=== PATIENT | male | born 1955 | race Caucasian/White ===

== ENCOUNTER 2016-12-07 14:24 | Emergency (ER) | payer SELFPAY ==
[~2016-12-07] VITALS: Ht 172.7 cm; Wt 57.2 kg
[~2016-12-07 14:24] MED LIST: ALLO300T74 PO; FERR134T5 PO; FURO-33 PO; OMEP10CA PO; ONDA8TAB PO; PRED-221 PO; PROC10TA PO; ZOLP-113 PO; [UNRECOGNIZED DRUG - CODE] PO
--- OUTSIDE RECORDS SUMMARY | 2016-12-07 14:29 | XMS REPORT | Summary of Care ---
Author Author Sidney Valenzuela M.D. Organization Unknown Address [address], [place] [id number] Phone Unavailable Care Team Providers Care Phosphoric Acid Supervisor Name Role Phone Matthew Valenzuela M.D. Unavailable Unavailable Noah Perez M.D. 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 Abdominal tenderness, RUQ (right upper quadrant) (789.61, R10.811) Status: Active Abdominal tenderness, LUQ (left upper quadrant) (789.62, R10.812) Status: Active Rash (782.1, R21) Status: Active 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 Sidney Valenzuela M.D.* Started ActiveGabapentin 100 MG Oral Capsule take one capsule TID for 7 days, then two TID for 7 days, then 3 capsules TID * Refills: 0 Sidney Valenzuela M.D.* Started ActiveCyanocobalamin 1000 MCG/ML Injection Solution Inject IM 1ML MONTHLY * Quantity: 10 Refills: 1 Sidney Valenzuela M.D.* Started ActiveClobetasol Propionate 0.05 % External Cream APPLY SPARINGLY TO AFFECTED AREA(S) TWICE DAILY * Quantity: 60 Refills: 1 Deacon Perez M.D.* Started 16-Jan-2014 Active Allergies and Adverse Reactions Name Dates Details NSAIDs Status: Active Past Medical History Name Dates Details Depression (311, F32.9) Status: Active History of blood transfusion (V15.89, Z92.89) Status: Resolved History of migraine headaches (V12.49, Z86.69) Status: Resolved History of pneumonia (V12.61, Z87.01) Status: Resolved History of Stomach problems (536.9, K31.9) Status: Resolved Personal history of malignant lymphoma (V10.79, Z85.9) Status: Resolved Procedures Procedure Dates Details History of Appendectomy History of Small Bowel Resection History of Complete Colonoscopy Procedures not documented Immunization Name Dates Details Pneumo (Pneumovax) Administered on:30-Apr-2013 Family History Unknown Family Member* Name Dates Details Family history of malignant neoplasm of breast (V16.3, Z80.3) Comments: Family History Status: Active Grandfather* Name Dates Details Family history of cardiac disorder (V17.49, Z82.49) Status: Active Father* Name Dates Details Family history of cardiac disorder (V17.49, Z82.49) Status: Active Sister* Name Dates Details Family history of malignant neoplasm of breast (V16.3, Z80.3) Status: Active Brother* Name Dates Details Family history of cardiac disorder (V17.49, Z82.49) Status: Active Social History Name Dates Details Smoking Status* Former smoker Vital Signs Date Test Result Details No Known Vitals to report Results Date Description Value Details Results not documented Plan of Care Planned Observations* Name Dates Details Planned Goals not documented Goal Planned Encounters* Appointment; Provider: Sidney Valenzuela On 13-Aug-2014 12:45 Instructions * Instructions not documented Encounters Appointment; Sidney Valenzuela Encounter Diagnosis: Problem not documented On 12-Jul-2014 12:30 Appointment; Sidney Valenzuela Encounter Diagnosis: Problem not documented On 11-Jun-2014 12:15 Appointment; Sidney Valenzuela Encounter Diagnosis: Problem not documented On 11-May-2014 12:00 Appointment; Sidney Valenzuela Encounter Diagnosis: Problem not documented On 03-Apr-2014 12:00 Appointment; Sidney Valenzuela Encounter Diagnosis: Problem not documented On 12:00 Appointment; Sidney Valenzuela Encounter Diagnosis: Problem not documented On 08:30 Appointment; Sidney Valenzuela Encounter Diagnosis: Problem not documented On 12:30 Appointment; Summer Patten Encounter Diagnosis: Problem not documented On 08:00 Appointment; Kapil Uriarte Encounter Diagnosis: Problem not documented On 11:45 Appointment; Sidney Valenzuela Encounter Diagnosis: Problem not documented On 12:00 Appointment; Sidney Valenzuela Encounter Diagnosis: Problem not documented On 12:00 Appointment; Summer Patten Encounter Diagnosis: Problem not documented On 08:00 Appointment; Sdiney Valenzuela Encounter Diagnosis: Problem not documented On 12:30 Appointment; Sidney Valenzuela Encounter Diagnosis: Problem not documented On 12:45 Appointment; Pranav Velazquez Encounter Diagnosis: Problem not documented On 09:30 Appointment; Sidney Valenzuela Encounter Diagnosis: Problem not documented On 12:30 Appointment; Sidney Valenzuela Encounter Diagnosis: Problem not documented On 10:30 Appointment; Sidney Valenzuela Encounter Diagnosis: Problem not documented On 11:45 Appointment; Deacon Perez Encounter Diagnosis: Problem not documented On 23-Jan-2014 09:15 Appointment; Deacon Perez Encounter Diagnosis: Problem not documented On 16-Jan-2014 10:45 Appointment; Melvin Melendrez Encounter Diagnosis: Problem not documented On 16-Jan-2014 09:05 Appointment; Antione Tobin Encounter Diagnosis: Problem not documented On 30-Mar-2013 08:30
--- OUTSIDE RECORDS SUMMARY | 2016-12-07 14:29 | XMS REPORT | Referral Summary ---
Author Author [facility], [facility] Organization [facility] Address Unknown Phone Unavailable Care Team Providers Care Help Desk Manager Name Role Phone Matthew Jones Primary Care Physician [phone] Encounter Date(s): 09/30/15 - 09/30/15 [facility], [address] [place] [id number] Discharge Disposition: 01-Home or Self Care Attending Physician: Zach Jones MD Admitting Physician: Zach Jones MD Vital Signs Most recent to 1 oldest [Reference Range]: Blood Pressure 120/70 mmHg [90-140/60-90 mmHg] (09/30/15 3:42 PM) Problem List Condition Effective Dates Status Health Status Informant Chronic Active depression(Confirmed ) Chronic Active headache(Confirmed) Depression(Confirmed Active ) Lymphoma, mantle Active cell(Confirmed) Allergies, Adverse Reactions, Alerts No Known Allergies Medications escitalopram 20 mg oral tablet 20 mg 1 tabs, Oral, Daily, # 30 tabs, 3 Refill(s), Pharmacy: [facility] # [id number], 1 tabs Oral Daily Start Date: 06/13/15 Status: Ordered Results No data available for this section Immunizations No data available for this section Procedures No data available for this section Social History Social History Type Response Smoking Status Former smoker Assessment and Plan Extracted from: Title: Ambulatory Patient Education Author: Zach Jones MD Date: 09/30/15 Family Medicine Depression Depression refers to feeling sad, low, down in the dumps, blue, gloomy, or empty. In general, there are two kinds of depression: 1. Normal sadness or normal grief. This kind of depression is one that we all feel from time to time after upsetting life experiences, such as the loss of a job or the ending of a relationship. This kind of depression is considered normal, is short lived, and resolves within a few days to 2 weeks. Depression experienced after the loss of a loved one (bereavement) often lasts longer than 2 weeks but normally gets better with time. 2. Clinical depression. This kind of depression lasts longer than normal sadness or normal grief or interferes with your ability to function at home, at work, and in school. It also interferes with your personal relationships. It affects almost every aspect of your life. Clinical depression is an illness. Symptoms of depression can also be caused by conditions other than those mentioned above, such as: Physical illness. Some physical illnesses, including underactive thyroid gland (hypothyroidism), severe anemia, specific types of cancer, diabetes, uncontrolled seizures, heart and lung problems, strokes, and chronic pain are commonly associated with symptoms of depression. Side effects of some prescription medicine. In some people, certain types of medicine can cause symptoms of depression. Substance abuse. Abuse of alcohol and illicit drugs can cause symptoms of depression. SYMPTOMS Symptoms of normal sadness and normal grief include the following: Feeling sad or crying for short periods of time. Not caring about anything (apathy). Difficulty sleeping or sleeping too much. No longer able to enjoy the things you used to enjoy. Desire to be by oneself all the time (social isolation). Lack of energy or motivation. Difficulty concentrating or remembering. Change in appetite or weight. Restlessness or agitation. Symptoms of clinical depression include the same symptoms of normal sadness or normal grief and also the following symptoms: Feeling sad or crying all the time. Feelings of guilt or worthlessness. Feelings of hopelessness or helplessness. Thoughts of suicide or the desire to harm yourself (suicidal ideation). Loss of touch with reality (psychotic symptoms). Seeing or hearing things that are not real (hallucinations) or having false beliefs about your life or the people around you (delusions and paranoia). DIAGNOSIS The diagnosis of clinical depression is usually based on how bad the symptoms are and how long they have lasted. Your health care provider will also ask you questions about your medical history and substance use to find out if physical illness, use of prescription medicine, or substance abuse is causing your depression. Your health care provider may also order blood tests. TREATMENT Often, normal sadness and normal grief do not require treatment. However, sometimes antidepressant medicine is given for bereavement to ease the depressive symptoms until they resolve. The treatment for clinical depression depends on how bad the symptoms are but often includes antidepressant medicine, counseling with a mental health professional, or both. Your health care provider will help to determine what treatment is best for you. Depression caused by physical illness usually goes away with appropriate medical treatment of the illness. If prescription medicine is causing depression , talk with your health care provider about stopping the medicine, decreasing the dose, or changing to another medicine. Depression caused by the abuse of alcohol or illicit drugs goes away when you stop using these substances. Some adults need professional help in order to stop drinking or using drugs. SEEK IMMEDIATE MEDICAL CARE IF: You have thoughts about hurting yourself or others. You lose touch with reality (have psychotic symptoms). You are taking medicine for depression and have a serious side effect. FOR MORE INFORMATION National [place] on Mental Illness: www.ld.org National [place] of Mental Health: www.nimh.nih.gov Document Released: 08/13/2001 Document Revised: 12/31/2014 Document Reviewed: ExitCare Patient Information 2015 [facility]. This information is not intended to replace advice given to you by your health care provider. Make sure you discuss any questions you have with your health care provider. No follow up information was provided. Extracted from: Title: Office Visit Note Author: Zach Jones MD Date: 09/30/15 Assessment/Plan Chronic depression This issue was reviewed, appears stable, and current therapy continued except as mentioned. Appropriate lab was reviewed from the most recent appropriate entry and lab was ordered if needed in the cpoe/nursing orders, and follow up recommended generally in 90 days and no later then six months. Mood stable. The patient has family members present who are agreeable with today's plan and have no additional concerns or requests. Lymphoma, mantle cell Seeing Dr. Maurer. No referral needed at this time with Medicare. Addendum The patient has a personal history of distant/active cancer. Currently they are having no by c/os or concerns related to that history and either completed treatment in the distant [place], past or have active follow up already arranged. Seeing Dr. Maurer. Zach Castro MD on September 30, 2015 15:57:16 AD COMPOSITOR
--- OUTSIDE RECORDS SUMMARY | 2016-12-07 14:29 | XMS REPORT | Referral Summary ---
Author Author [facility], [facility] Organization [facility] Address Unknown Phone Unavailable Care Team Providers Care Yardage Control Operator Name Role Phone Matthew Jones Primary Care Physician [phone] Encounter Date(s): 05/28/15 - 05/28/15 [facility], [address] [place] [id number] Discharge Disposition: 01-Home or Self Care Attending Physician: Zach Jones MD Admitting Physician: Zach Jones MD Vital Signs Most recent to 1 oldest [Reference Range]: Blood Pressure 120/80 mmHg [90-140/60-90 mmHg] (05/28/15 8:31 AM) Problem List Condition Effective Dates Status Health Status Informant Chronic Active depression(Confirmed ) Chronic Active headache(Confirmed) Depression(Confirmed Active ) Lymphoma, mantle Active cell(Confirmed) Allergies, Adverse Reactions, Alerts No Known Allergies Medications escitalopram 20 mg oral tablet 20 mg 1 tabs, Oral, Daily, # 30 tabs, 3 Refill(s), Pharmacy: [facility] # [id number], 1 tabs Oral Daily Start Date: 06/13/15 Status: Ordered Results No data available for this section Immunizations No data available for this section Procedures No data available for this section Social History Social History Type Response Smoking Status Former smoker Assessment and Plan Extracted from: Title: Ambulatory Patient Education Author: Zach Jones MD Date: Family Medicine Depression Depression refers to feeling [...] serious side effect. FOR MORE INFORMATION National [place] on Mental Illness: www.ld.org [place] of Mental Health: www.nimh.nih.gov Document Released: 08/13/2001 Document Revised: 12/31/2014 Document Reviewed: ExitCare Patient Information 2015 [facility]. This information is not intended to replace advice given to you by your health care provider. Make sure you discuss any questions you have with your health care provider. No follow up information was provided. Extracted from: Title: Office Visit Note Author: Zach Jones MD Date: 05/28/15 Assessment/Plan Chronic headache This issue is stable and appropriate refills, lab, and f/u have been discussed. Depression This issue is stable and appropriate refills, lab, and f/u have been discussed. Stable oncurrent meds. Lymphoma, mantle cell This issue is stable and appropriate refills, lab, and f /u have been discussed. Referrals given.
--- OUTSIDE RECORDS SUMMARY | 2016-12-07 14:30 | XMS REPORT | Continuity of Care Document ---
Author Author [facility] Organization [facility] Address Unknown Phone Unavailable Allergies Active Description Code Type Severity Reaction Onset Reported/Identified Relationship to Patient Clinical Status Yes No Known Allergies NKMA N/A N/A Yes No Known Allergies Drug Allergy N/A N/A 04/13/2013 Yes No Known Drug Allergies Drug Allergy N/A N/A 04/13/2013 Yes No Known Food Allergies Food Allergy N/A N/A 04/13/2013 Medications Problems Date Dx Coded Attending Type Code Diagnosis Diagnosed By 04/12/2013 Libertad ROGERS, Michael Ayoub Final 200.40 LYMPHOMA XNODAL/NOS 04/12/2013 Michael Maurer MD, I Final V64.1 NO PX/CONTRAINDICATION 04/13/2013 Bryan ROGERS, Ernesto Final 200.40 LYMPHOMA XNODAL/NOS 04/13/2013 Bryan ROGERS, Ernesto Final 276.1 HYPOSMOLALITY 04/13/2013 Bryan ROGERS, Ernesto Final 276.8 HYPOPOTASSEMIA 04/13/2013 Bryan ROGERS, Ernesto Final 284.19 PANCYTOPENIA NEC 04/13/2013 Bryan ROGERS, Ernesto Final 287.31 IMMUN THROMBOCYT PURPURA 04/13/2013 Bryan ROGERS, Ernesto Final 401.9 HYPERTENSION NOS 04/13/2013 Bryan ROGERS, Ernesto Final 511.9 PLEURAL EFFUSION NOS 04/13/2013 Bryan ROGERS, Ernesto Final 518.0 PULMONARY COLLAPSE 04/13/2013 Bryan ROGERS, Ernesto Final 518.81 AC RESPIRATORY FAILURE 04/13/2013 Bryan ROGERS, Ernesto Final 573.9 LIVER DISORDER NOS 04/13/2013 Bryan ROGERS, Ernesto Final 578.9 GI HEMORRHAGE NOS 04/13/2013 Bryan ROGERS, Ernesto Final 786.6 CHEST SWELLING/MASS/LUMP 04/13/2013 Bryan ROGERS, Ernesto Admitting 787.01 NAUSEA W VOMITING 04/13/2013 Brayn ROGERS, [facility] Final 789.59 ASCITES NEC 04/13/2013 Bryan ROGERS, [facility] Final 790.4 ELEVAT TRANSAMINASE/LDH Procedures Code Description Performed By Performed On 41.31 BONE MARROW BIOPSY Brayan Aguilera DO 04/14/2013 50.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 Visit Date/Time Discharge Status Pt. Type Provider Facility Loc./Unit Complaint [id number] 04/13/2013 15:37:00 2012 12:58:00 DIS Inpatient Bryan ROGERS, [facility] on [address] F7N [id number] 04/12/2013 05:40:00 2012 09:25:00 DIS Outpatient Libertad ROGERS, [facility] on [place] [id number]
--- OUTSIDE RECORDS SUMMARY | 2016-12-07 14:30 | XMS REPORT | Referral Summary ---
Author Author [facility], [facility] Organization [facility] Address Unknown Phone Unavailable Care Team Providers Care Machine Tender Name Role Phone Matthew Jones Primary Care Physician [phone] Encounter Date(s): 05/28/15 - 05/28/15 [facility], [address] [place] [address]- Discharge Disposition: 01-Home or Self Care Attending Physician: Zach Jones MD Admitting Physician: Zach Jones MD Vital Signs Most recent to 1 oldest [Reference Range]: Blood Pressure 120/80 mmHg [90-140/60-90 mmHg] (05/28/15 8:31 AM) Problem List Condition Effective Dates Status Health Status Informant Chronic Active headache(Confirmed) Depression(Confirmed Active ) Lymphoma, mantle Active cell(Confirmed) Allergies, Adverse Reactions, Alerts No Known Allergies Medications escitalopram 20 mg oral tablet 60 mg 3 tabs, Oral, Daily, # 270 tabs, 0 Refill(s), Pharmacy: [facility] # [id number], 3 tabs Oral Daily,x90 days Start Date: 05/28/15 Stop Date: 08/26/15 Status: Ordered Results No data available for [...] serious side effect. FOR MORE INFORMATION National [place] on Mental Illness: www.ld.org National [place] of Mental Health: www.nimh.nih.gov Document Released: 08/13/2001 Document Revised: 12/31/2014 Document Reviewed: ExitCare Patient Information 2015 [employer] [facility]. This information is not intended to replace [...]
--- OUTSIDE RECORDS SUMMARY | 2016-12-07 14:30 | XMS REPORT ---
Author Author [facility], [facility] - Organization Unknown Address Unknown Phone Unavailable Allergies, Adverse Reactions, Alerts * Latex Allergy has not been assessed. * IV Contrast Allergy has not been assessed. * No Known Drug Allergies. * No Known Food Allergies. * No Known Allergies. Problems * Abdominal Pain* Status:Active. * Biopsy of Liver* Status:Active. * Mantle Cell Lymphoma* Status:Active. Procedures No relevant procedures performed. Medication Medication reconciliation has not been performed. Results LAB--COAG STUDIES from 04/12/2013 6:15 AMINR 1.0 (0.9-1.2 ) PTT 21.2 sec L (25.0-35.0 sec) LAB--HEMATOLOGY from 04/12/2013 7:24 AMAbsolute Basophils 0.12 THOUS (0.00-0.20 THOUS) Absolute Eosinophils 0.26 THOUS (0.00-0.50 THOUS) Absolute Lymphocytes 0.66 THOUS L (0.80-3.30 THOUS) Absolute Monocytes 1.24 THOUS H (0.30-1.00 THOUS) Absolute Neutrophils 9.42 THOUS H (1.90-7.00 THOUS) HCT 34.6 % L (42.0-52.0 %) HGB 11.6 g/dl L (14.0-18.0 g/dl) MCH 29.7 pg (27.0-32.0 pg) MCHC 33.5 g/dL (32.0-36.0 g/dL) MCV 88.7 fL (82.0-99.0 fL) Platelet Count 8 K/uL LL (150-400 K/uL) RBC 3.90 M/uL L (4.60-6.20 M/uL) RDW 14.6 % H (11.5-14.5 %) WBC 11.8 K/uL H (4.8-10.8 K/uL) Basophils 1 % (0-2 %) Eosinophils 2 % (0-4 %) Immature Granulocytes 1.1 % H (0.0-1.0 %) Lymphocytes 6 % L (20-46 %) Monocytes 11 % (4-11 %) Nucleated RBC Automated 0.2 /100 WBC (0 /100 WBC) Differential Scanned Slide Neutrophils 80 % H (51-75 %)
--- OUTSIDE RECORDS SUMMARY | 2016-12-07 14:30 | XMS REPORT ---
Author Author [facility], Via [facility] - Organization Unknown Address Unknown Phone Unavailable Allergies, Adverse Reactions, Alerts * No Latex Allergy. * No IV Contrast Allergy. * No Known Drug Allergies. * No Known Food Allergies. * No Known Allergies. Problems * Abdominal Pain* Status:Resolved. * Biopsy of Liver* Status:Resolved. * Chemotherapy* Status:Active. * Fall Risk* Status:Active. * Fluid Volume Disorder* Status:Resolved. * Gas Exchange Impairment* Status:Resolved. * Mantle Cell Lymphoma* Status:Active. * Nutrition Impairment* Status:Active. * Thrombocytopenic Disorder* Status:Active. Procedures No relevant procedures performed. Medication It is the responsibility of the patient or patient patient relations representative to confirm the list of medications with either the patient's personal care provider or the patient's follow-up care provider to ensure the patient has an appropriate list of medications to take at home. Discharge medications* zolpidem 5 mg Tablet, Ordered By: Chrissy Andrewitar Directions: 1 tablet oral QHS PRN MAY RPT _ SLEEP Additional Instructions: MAY REPEAT IN 1 HOUR IF PATIENT REMAINS AWAKE. * allopurinol 300 mg Tablet, Ordered By: Chrissy Andrewitar Directions: 1 tablet oral daily * ferrous sulfate 325 mg (65 mg iron) tablet,delayed release (DR/EC), Ordered By : Chrissy Andrewitar Directions: 1 tablet oral three times a day during meal * HYDROcodone-acetaminophen (Lortab) 5 mg-500 mg Tablet, Ordered By: Chrissy Andrewitar Directions: 1 tablet oral every four hours PRN pain * ondansetron HCl (Zofran) 8 mg Tablet, Ordered By: Chrissy Andrewitar Directions: 1 tablet oral every eight hours PRN nausea or vomiting * omeprazole 20 mg capsule,delayed release(DR/EC), Ordered By: Chrissy Henao Directions: 1 capsule oral twice a day before meals Additional Instructions: FORMULARY SUB FOR PROTONIX 40 MG/BID IV * predniSONE 20 mg Tablet, Ordered By: Chrissy Henao Directions: 3 tablet oral Daily at 8 AM _ THROMBOCYTOPENIA * Diet: Regular diet * Activity : as tolerated * Follow up with Dr. Maurer in [place] office as scheduled * Blood work at Dr. Maurer office - this Wednesday, next Wednesday and Thr Stopped medications* ranitidine HCl (ZANtac) 150 mg Tablet Directions: 1 tablet oral three times a day with or after meal * ibuprofen 200 mg Tablet Directions: 2-4 tablet oral every four hours PRN pain Results LAB--BLOOD BANK from 04/13/2013 5:56 PMPlatelet Pheresis LR Irradiated PP LR IR # 1 [id number] selected 04/13/13 17:56 PSAMM (Preliminary Result) LAB--BLOOD BANK from 04/13/2013 6:17 PMBlood Bank Specimen to Hold DONE Antibody Screen (Indirect [facility]) NEG ABO and Rh O NEG LAB--BLOOD BANK from 04/13/2013 7:43 PMPlatelet Pheresis LR Irradiated PP LR IR # 1 [id number] p.Transfus 04/13/13 19:43 LAB--BLOOD BANK from 04/13/2013 10:26 PMPlatelet Pheresis LR Irradiated PP LR IR #3 [id number] selected 04/13/13 22:26 PSAMM (Preliminary Result) LAB--BLOOD BANK from 04/13/2013 11:05 PMPlatelet Pheresis LR Irradiated PP LR IR #3 [id number] p.Transfus 04/13/13 23:05 LAB--BLOOD BANK from 04/14/2013 10:40 AMPlatelet Pheresis LR Irradiated PP LR IR #1 [id number] selected 04/14/13 10:40 CCHER (Preliminary Result) LAB--BLOOD BANK from 04/14/2013 2:22 PMPlatelet Pheresis LR Irradiated PP LR IR # 3 [id number] selected 04/14/13 14:22 RTHOM (Preliminary Result) LAB--BLOOD BANK from 04/14/2013 2:55 PMPlatelet Pheresis LR Irradiated PP LR IR # 3 [id number] p.Transfus 04/14/13 14:55 LAB--BLOOD BANK from 04/15/2013 8:47 AMPlatelet Pheresis LR Irradiated PP LR IR # 2 [id number] selected 04/15/13 08:47 PRASHANT (Preliminary Result) LAB--BLOOD BANK from 04/15/2013 9:25 AMPlatelet Pheresis LR Irradiated PP LR IR # 2 [id number] p.Transfus 04/15/13 09:25 LAB--BLOOD BANK from 04/18/2013 4:59 PMPlatelet Pheresis LR Irradiated PP LR IR # 2 [id number] selected 04/18/13 16:59 BBUCZ (Preliminary Result) LAB--BLOOD BANK from 04/18/2013 6:21 PMPlatelet Pheresis LR Irradiated PP LR IR # 2 [id number] p.Transfus 04/18/13 18:21 LAB--BLOOD BANK from 04/19/2013 1:39 AMPlatelet Pheresis LR Irradiated PP LR IR [id number] selected 04/19/13 01:39 CSAL (Preliminary Result) LAB--BLOOD BANK from 04/19/2013 6:37 AMPlatelet Pheresis LR Irradiated PP LR IR [id number] p.Transfus 04/19/13 06:37 LAB--BLOOD BANK from 04/20/2013 10:02 AMPlatelet Pheresis LR Irradiated PP LR IR #1 [id number] p.Transfus 04/20/13 10:02 LAB--BLOOD BANK from 04/21/2013 1:13 AMPlatelet Pheresis LR Irradiated PP LR IR [id number] selected 04/21/13 01:13 CARIDAD (Preliminary Result) LAB--BLOOD BANK from 04/21/2013 3:57 PMPlatelet Pheresis LR Irradiated PP LR IR [id number] p.Transfus 04/21/13 15:57 LAB--BLOOD BANK from 04/22/2013 9:38 AMPlatelet Pheresis LR Irradiated PP LR IR # 2 [id number] selected 04/22/13 09:38 SXCDREAD (Preliminary Result) LAB--BLOOD BANK from 04/22/2013 10:43 AMPlatelet Pheresis LR Irradiated PP LR IR #2 [id number] p.Transfus 04/22/13 10:43 LAB--BLOOD BANK from 04/23/2013 2:51 PMPlatelet Pheresis LR Irradiated PP LR IR # 1 [id number] selected 04/23/13 14:51 MFLET (Preliminary Result) LAB--BLOOD BANK from 04/23/2013 3:27 PMPlatelet Pheresis LR Irradiated PP LR IR # 2 [id number] selected 04/23/13 15:27 MFLET (Preliminary Result) LAB--BLOOD BANK from 04/23/2013 4:37 PMPlatelet Pheresis LR Irradiated PP LR IR # 2 [id number] p.Transfus 04/23/13 16:37 LAB--BLOOD BANK from 04/24/2013 6:06 AMAntibody Screen (Indirect [facility]) NEG ABO and Rh O NEG LAB--BLOOD BANK from 04/24/2013 8:30 AMRed Blood Cells LR Irradiated ( Preliminary Result)RCLRIR -1PA#2 [id number] selected 04/24/13 08:30 RTHOM RCLR IR -1 [id number] selected 04/24/13 08:30 RTHOM RCLR IR -1 [id number] selected 04/24/13 08:30 RTHOM LAB--BLOOD BANK from 04/24/2013 9:16 AMRed Blood Cells LR Irradiated RCLRIR - 1PA#2 [id number] p.Transfus 04/24/13 09:16 LAB--BLOOD BANK from 04/24/2013 11:42 AMPlatelet Pheresis LR Irradiated PP LR IR [id number] selected 04/24/13 11:42 PRASHANT (Preliminary Result) LAB--BLOOD BANK from 04/24/2013 12:10 PMPlatelet Pheresis LR Irradiated PP LR IR [id number] p.Transfus 04/24/13 12:10 LAB--BLOOD BANK from 04/24/2013 2:05 PMRed Blood Cells LR Irradiated RCLR IR - 1 [id number] p.Transfus 04/24/13 14:05 LAB--BLOOD BANK from 04/24/2013 4:35 PMRed Blood Cells LR Irradiated RCLR IR - 1 [id number] p.Transfus 04/24/13 16:35 LAB--BLOOD BANK from 04/25/2013 10:36 AMPlatelet Pheresis LR Irradiated PP LR IR #2 [id number] selected 04/25/13 10:36 SXCHA (Preliminary Result) LAB--BLOOD BANK from 04/25/2013 11:27 AMPlatelet Pheresis LR Irradiated PP LR IR #2 [id number] p.Transfus 04/25/13 11:27 LAB--BLOOD BANK from 04/26/2013 8:07 AMPlatelet Pheresis LR Irradiated PP LR IR [id number] selected 04/26/13 08:07 SXCHA (Preliminary Result) LAB--BLOOD BANK from 04/26/2013 8:46 AMPlatelet Pheresis LR Irradiated LAB--BLOOD BANK from 04/26/2013 8:48 AMPlatelet Pheresis LR Irradiated Platelet Pheresis LR Irradiated LAB--BLOOD BANK from 04/26/2013 9:34 AMPlatelet Pheresis LR Irradiated PP LR IR # 2 [id number] p.Transfus 04/26/13 09:34 LAB--BLOOD BANK from 04/27/2013 12:58 PMPlatelet Pheresis LR Irradiated PP LR IR [id number] p.Transfus 04/27/13 12:58 LAB--BLOOD BANK from 04/28/2013 7:24 AMAntibody Screen (Indirect [facility]) NEG ABO and Rh O NEG LAB--BLOOD BANK from 04/28/2013 7:50 AMPlatelet Pheresis LR Irradiated PP LR IR # 2 [id number] selected 04/28/13 07:50 RTHOM (Preliminary Result) LAB--BLOOD BANK from 04/28/2013 8:11 AMRed Blood Cells LR Irradiated ( Preliminary Result)RCLR IR -1 [id number] selected 04/28/13 08:11 RTHOM RCLR IR -1 [id number] selected 04/28/13 08:11 RTHOM LAB--BLOOD BANK from 04/28/2013 2:12 PMPlatelet Pheresis LR Irradiated PP LR IR # 2 [id number] p.Transfus 04/28/13 14:12 LAB--BLOOD BANK from 04/28/2013 4:39 PMRed Blood Cells LR Irradiated RCLR IR - 1 [id number] p.Transfus 04/28/13 16:39 LAB--BLOOD BANK from 04/28/2013 7:25 PMRed Blood Cells LR Irradiated RCLR IR - 1 [id number] p.Transfus 04/28/13 19:25 LAB--BLOOD BANK from 04/29/2013 6:37 AMPlatelet Pheresis LR Irradiated LAB--BLOOD BANK from 04/29/2013 7:15 AMPlatelet Pheresis LR Irradiated PP LR IR # 2 [id number] selected 04/29/13 07:15 PRASHANT (Preliminary Result) LAB--BLOOD BANK from 04/29/2013 9:16 AMPlatelet Pheresis LR Irradiated PP LR IR # 2 [id number] p.Transfus 04/29/13 09:16 LAB--BLOOD BANK from 04/29/2013 11:29 AMPlatelet Pheresis LR Irradiated LAB--BLOOD BANK from 04/30/2013 6:51 AMPlatelet Pheresis LR Irradiated PP LR IR [id number] selected 04/30/13 06:51 PRASHANT (Preliminary Result) LAB--BLOOD BANK from 04/30/2013 8:10 AMPlatelet Pheresis LR Irradiated PP LR IR [id number] p.Transfus 04/30/13 08:10 LAB--BLOOD BANK from 05/01/2013 7:05 AMPlatelet Pheresis LR Irradiated PP LR IR # 2 [id number] selected 05/01/13 07:05 SXCHA (Preliminary Result) LAB--BLOOD BANK from 05/01/2013 10:51 AMPlatelet Pheresis LR Irradiated PP LR IR # 2 [id number] p.Transfus 05/01/13 10:51 LAB--BLOOD BANK from 05/02/2013 6:58 AMPlatelet Pheresis LR Irradiated PP LR IR [id number] selected 05/02/13 06:58 CCHER (Preliminary Result) LAB--BLOOD BANK from 05/03/2013 12:11 PMPlatelet Pheresis LR Irradiated LAB--BLOOD BANK from 05/09/2013 9:38 AMPlatelet Pheresis LR Irradiated PP LR IR # 3 [id number] selected 05/09/13 09:38 SXCHA (Preliminary Result) LAB--BLOOD BANK from 05/09/2013 9:56 AMPlatelet Pheresis LR Irradiated PP LR IR # 3 [id number] p.Transfus 05/09/13 09:56 LAB--CHEMISTRY from 04/13/2013 6:16 PMBUN 25 mg/dL H (4-20 mg/dL) Bilirubin Total 1.3 mg/dL H (0.2-1.2 mg/dL) AST (SGOT) 169 U/L H (15-41 U/L) ALT (SGPT) 103 U/L H (17-63 U/L) Alkaline Phosphatase 747 U/L H (26-104 U/L) Albumin 2.4 g/dL L (3.5-4.8 g/dL) Anion Gap 12 (3-20 ) Calcium 8.5 mg/dL L (8.6-10.0 mg/dL) Chloride 94 mEq/L L (99-109 mEq/L) CO2 27 mEq/L (22-32 mEq/L) Creatinine 0.97 mg/dL (0.64-1.27 mg/dL) Ferritin 147 ng/mL (24-340 ng/mL) eGFR >60 (>60- ) Globulin 3.6 g/dL (1.9-4.3 g/dL) Glucose 95 mg/dL (70-100 mg/dL) Iron 30 ug/dL L (65-175 ug/dL) Potassium 4.0 mEq/L (3.6-5.1 mEq/L) LDH 1864 U/L H (98-192 U/L) Magnesium 2.2 mg/dL (1.8-2.5 mg/dL) Sodium 133 mEq/L L (136-144 mEq/L) Percent Saturation 10 % L (11-46 %) Iron Binding Capacity 294 ug/dL (268-490 ug/dL) Protein 6.0 g/dL L (6.1-7.9 g/dL) Transferrin 197 mg/dL (180-329 mg/dL) Vitamin B12 >1000 pg/mL H (211-911 pg/mL) Folate 5.2 ng/mL (2.0-20.0 ng/mL) LAB--CHEMISTRY from 04/14/2013 6:34 AMAnion Gap 10 (3-20 ) BUN 20 mg/dL (4-20 mg/dL) Calcium 8.1 mg/dL L (8.6-10.0 mg/dL) Chloride 102 mEq/L (99-109 mEq/L) CO2 24 mEq/L (22-32 mEq/L) Creatinine 0.91 mg/dL (0.64-1.27 mg/dL) eGFR >60 (>60- ) Glucose 74 mg/dL (70-100 mg/dL) Potassium 4.0 mEq/L (3.6-5.1 mEq/L) Magnesium 2.2 mg/dL (1.8-2.5 mg/dL) Sodium 136 mEq/L (136-144 mEq/L) Uric Acid 7.1 mg/dL (4.8-8.7 mg/dL) LAB--CHEMISTRY from 04/14/2013 4:08 PMAlpha Protein 0.6 IU/mL (0.0-5.0 IU/ mL) CEA 0.8 ng/mL (0.0-3.3 ng/mL) HCG Quant 1 mIU/mL (0-3 mIU/mL) LAB--CHEMISTRY from 04/15/2013 3:55 AMBUN 12 mg/dL (4-20 mg/dL) Bilirubin Total 1.0 mg/dL (0.2-1.2 mg/dL) AST (SGOT) 145 U/L H (15-41 U/L) ALT (SGPT) 76 U/L H (17-63 U/L) Alkaline Phosphatase 535 U/L H (26-104 U/L) Albumin 2.1 g/dL L (3.5-4.8 g/dL) Anion Gap 5 (3-20 ) Calcium 8.0 mg/dL L (8.6-10.0 mg/dL) Chloride 105 mEq/L (99-109 mEq/L) CO2 25 mEq/L (22-32 mEq/L) Creatinine 0.73 mg/dL (0.64-1.27 mg/dL) eGFR >60 (>60- ) Globulin 3.4 g/dL (1.9-4.3 g/dL) Glucose 115 mg/dL H (70-100 mg/dL) Potassium 4.3 mEq/L (3.6-5.1 mEq/L) Magnesium 2.2 mg/dL (1.8-2.5 mg/dL) Sodium 135 mEq/L L (136-144 mEq/L) Phosphorus 4.0 mg/dL (2.4-4.7 mg/dL) Protein 5.5 g/dL L (6.1-7.9 g/dL) Uric Acid 4.2 mg/dL L (4.8-8.7 mg/dL) LAB--CHEMISTRY from 04/16/2013 3:36 AMBUN 10 mg/dL (4-20 mg/dL) Bilirubin Total 1.1 mg/dL (0.2-1.2 mg/dL) AST (SGOT) 135 U/L H (15-41 U/L) ALT (SGPT) 75 U/L H (17-63 U/L) Alkaline Phosphatase 554 U/L H (26-104 U/L) Albumin 2.1 g/dL L (3.5-4.8 g/dL) Anion Gap 7 (3-20 ) Calcium 8.3 mg/dL L (8.6-10.0 mg/dL) Chloride 103 mEq/L (99-109 mEq/L) CO2 25 mEq/L (22-32 mEq/L) Creatinine 0.61 mg/dL L (0.64-1.27 mg/dL) eGFR >60 (>60- ) Globulin 3.7 g/dL (1.9-4.3 g/dL) Glucose 106 mg/dL H (70-100 mg/dL) Potassium 4.3 mEq/L (3.6-5.1 mEq/L) Magnesium 2.0 mg/dL (1.8-2.5 mg/dL) Sodium 135 mEq/L L (136-144 mEq/L) Phosphorus 2.5 mg/dL (2.4-4.7 mg/dL) Protein 5.8 g/dL L (6.1-7.9 g/dL) Uric Acid 3.0 mg/dL L (4.8-8.7 mg/dL) LAB--CHEMISTRY from 04/17/2013 6:26 AMBUN 10 mg/dL (4-20 mg/dL) Bilirubin Total 1.2 mg/dL (0.2-1.2 mg/dL) AST (SGOT) 113 U/L H (15-41 U/L) ALT (SGPT) 69 U/L H (17-63 U/L) Alkaline Phosphatase 531 U/L H (26-104 U/L) Albumin 2.1 g/dL L (3.5-4.8 g/dL) Anion Gap 9 (3-20 ) Calcium 8.2 mg/dL L (8.6-10.0 mg/dL) Chloride 99 mEq/L (99-109 mEq/L) CO2 26 mEq/L (22-32 mEq/L) Creatinine 0.67 mg/dL (0.64-1.27 mg/dL) eGFR >60 (>60- ) Globulin 4.2 g/dL (1.9-4.3 g/dL) Glucose 98 mg/dL (70-100 mg/dL) Potassium 3.6 mEq/L (3.6-5.1 mEq/L) Magnesium 2.0 mg/dL (1.8-2.5 mg/dL) Sodium 134 mEq/L L (136-144 mEq/L) Phosphorus 3.0 mg/dL (2.4-4.7 mg/dL) Protein 6.3 g/dL (6.1-7.9 g/dL) Uric Acid 3.0 mg/dL L (4.8-8.7 mg/dL) LAB--CHEMISTRY from 04/18/2013 5:06 AMAnion Gap 10 (3-20 ) Albumin 2.3 g/dL L (3.5-4.8 g/dL) Alkaline Phosphatase 486 U/L H (26-104 U/L) ALT (SGPT) 68 U/L H (17-63 U/L) AST (SGOT) 110 U/L H (15-41 U/L) Bilirubin Total 1.1 mg/dL (0.2-1.2 mg/dL) BUN 10 mg/dL (4-20 mg/dL) Calcium 8.3 mg/dL L (8.6-10.0 mg/dL) Chloride 94 mEq/L L (99-109 mEq/L) CO2 28 mEq/L (22-32 mEq/L) Creatinine 0.70 mg/dL (0.64-1.27 mg/dL) eGFR >60 (>60- ) Globulin 3.9 g/dL (1.9-4.3 g/dL) Glucose 90 mg/dL (70-100 mg/dL) Potassium 3.5 mEq/L L (3.6-5.1 mEq/L) Magnesium 2.1 mg/dL (1.8-2.5 mg/dL) Sodium 132 mEq/L L (136-144 mEq/L) Phosphorus 3.1 mg/dL (2.4-4.7 mg/dL) Protein 6.2 g/dL (6.1-7.9 g/dL) Uric Acid 3.1 mg/dL L (4.8-8.7 mg/dL) LAB--CHEMISTRY from 04/18/2013 9:12 AMCEA 0.9 ng/mL (0.0-3.3 ng/mL) CA 19-9 <1 U/mL (-<55 U/mL) LAB--CHEMISTRY from 04/19/2013 4:29 AMAnion Gap 10 (3-20 ) Albumin 2.4 g/dL L (3.5-4.8 g/dL) Alkaline Phosphatase 406 U/L H (26-104 U/L) ALT (SGPT) 63 U/L (17-63 U/L) AST (SGOT) 94 U/L H (15-41 U/L) Bilirubin Total 1.0 mg/dL (0.2-1.2 mg/dL) BUN 12 mg/dL (4-20 mg/dL) Calcium 8.8 mg/dL (8.6-10.0 mg/dL) Chloride 93 mEq/L L (99-109 mEq/L) CO2 30 mEq/L (22-32 mEq/L) Creatinine 0.64 mg/dL (0.64-1.27 mg/dL) eGFR >60 (>60- ) Globulin 5.1 g/dL H (1.9-4.3 g/dL) Glucose 96 mg/dL (70-100 mg/dL) Potassium 3.9 mEq/L (3.6-5.1 mEq/L) Magnesium 2.0 mg/dL (1.8-2.5 mg/dL) Sodium 133 mEq/L L (136-144 mEq/L) Phosphorus 3.0 mg/dL (2.4-4.7 mg/dL) Protein 7.5 g/dL (6.1-7.9 g/dL) Uric Acid 2.9 mg/dL L (4.8-8.7 mg/dL) PSA 0.3 ng/mL (0.0-3.5 ng/mL) LAB--CHEMISTRY from 04/20/2013 6:44 AMBilirubin Total 1.0 mg/dL (0.2-1.2 mg/dL) BUN 11 mg/dL (4-20 mg/dL) AST (SGOT) 86 U/L H (15-41 U/L) ALT (SGPT) 60 U/L (17-63 U/L) Alkaline Phosphatase 394 U/L H (26-104 U/L) Albumin 2.2 g/dL L (3.5-4.8 g/dL) Anion Gap 9 (3-20 ) Calcium 8.6 mg/dL (8.6-10.0 mg/dL) Chloride 93 mEq/L L (99-109 mEq/L) CO2 29 mEq/L (22-32 mEq/L) Creatinine 0.71 mg/dL (0.64-1.27 mg/dL) eGFR >60 (>60- ) Globulin 6.2 g/dL H (1.9-4.3 g/dL) Glucose 89 mg/dL (70-100 mg/dL) Potassium 3.3 mEq/L L (3.6-5.1 mEq/L) Magnesium 1.8 mg/dL (1.8-2.5 mg/dL) Sodium 131 mEq/L L (136-144 mEq/L) Phosphorus 3.2 mg/dL (2.4-4.7 mg/dL) Protein 8.4 g/dL H (6.1-7.9 g/dL) Uric Acid 3.5 mg/dL L (4.8-8.7 mg/dL) LAB--CHEMISTRY from 04/20/2013 9:54 AMLDH 782 U/L H (98-192 U/L) LAB--CHEMISTRY from 04/21/2013 6:42 AMBilirubin Total 0.9 mg/dL (0.2-1.2 mg/dL) BUN 17 mg/dL (4-20 mg/dL) AST (SGOT) 88 U/L H (15-41 U/L) ALT (SGPT) 60 U/L (17-63 U/L) Alkaline Phosphatase 400 U/L H (26-104 U/L) Albumin 2.2 g/dL L (3.5-4.8 g/dL) Anion Gap 6 (3-20 ) Calcium 8.7 mg/dL (8.6-10.0 mg/dL) Chloride 97 mEq/L L (99-109 mEq/L) CO2 30 mEq/L (22-32 mEq/L) Creatinine 0.70 mg/dL (0.64-1.27 mg/dL) eGFR >60 (>60- ) Globulin 5.2 g/dL H (1.9-4.3 g/dL) Glucose 111 mg/dL H (70-100 mg/dL) Potassium 4.4 mEq/L (3.6-5.1 mEq/L) LDH 755 U/L H (98-192 U/L) Magnesium 2.1 mg/dL (1.8-2.5 mg/dL) Sodium 133 mEq/L L (136-144 mEq/L) Phosphorus 3.8 mg/dL (2.4-4.7 mg/dL) Protein 7.4 g/dL (6.1-7.9 g/dL) Uric Acid 3.1 mg/dL L (4.8-8.7 mg/dL) LAB--CHEMISTRY from 04/21/2013 11:34 AMProtein 8.3 g/dL H (6.1-7.9 g/dL) LAB--CHEMISTRY from 04/22/2013 5:23 AMBilirubin Total 0.9 mg/dL (0.2-1.2 mg/dL) AST (SGOT) 73 U/L H (15-41 U/L) ALT (SGPT) 50 U/L (17-63 U/L) Alkaline Phosphatase 351 U/L H (26-104 U/L) Albumin 2.2 g/dL L (3.5-4.8 g/dL) Anion Gap 6 (3-20 ) BUN 21 mg/dL H (4-20 mg/dL) Calcium 8.7 mg/dL (8.6-10.0 mg/dL) Chloride 100 mEq/L (99-109 mEq/L) CO2 29 mEq/L (22-32 mEq/L) Creatinine 0.59 mg/dL L (0.64-1.27 mg/dL) eGFR >60 (>60- ) Globulin 5.4 g/dL H (1.9-4.3 g/dL) Glucose 107 mg/dL H (70-100 mg/dL) Potassium 4.7 mEq/L (3.6-5.1 mEq/L) LDH 698 U/L H (98-192 U/L) Magnesium 2.3 mg/dL (1.8-2.5 mg/dL) Sodium 135 mEq/L L (136-144 mEq/L) Phosphorus 4.4 mg/dL (2.4-4.7 mg/dL) Protein 7.6 g/dL (6.1-7.9 g/dL) Uric Acid 3.0 mg/dL L (4.8-8.7 mg/dL) LAB--CHEMISTRY from 04/23/2013 6:04 AMAnion Gap 5 (3-20 ) Albumin 2.3 g/dL L (3.5-4.8 g/dL) Alkaline Phosphatase 308 U/L H (26-104 U/L) ALT (SGPT) 44 U/L (17-63 U/L) AST (SGOT) 69 U/L H (15-41 U/L) Bilirubin Total 0.8 mg/dL (0.2-1.2 mg/dL) BUN 31 mg/dL H (4-20 mg/dL) Calcium 8.6 mg/dL (8.6-10.0 mg/dL) Calcium Ionized 1.33 mmol/L (1.19-1.41 mmol/L) Chloride 102 mEq/L (99-109 mEq/L) CO2 27 mEq/L (22-32 mEq/L) Creatinine 0.67 mg/dL (0.64-1.27 mg/dL) eGFR >60 (>60- ) Globulin 4.9 g/dL H (1.9-4.3 g/dL) Glucose 91 mg/dL (70-100 mg/dL) Potassium 4.1 mEq/L (3.6-5.1 mEq/L) LDH 573 U/L H (98-192 U/L) Magnesium 2.4 mg/dL (1.8-2.5 mg/dL) Sodium 134 mEq/L L (136-144 mEq/L) Phosphorus 3.2 mg/dL (2.4-4.7 mg/dL) Protein 7.2 g/dL (6.1-7.9 g/dL) Uric Acid 3.5 mg/dL L (4.8-8.7 mg/dL) LAB--CHEMISTRY from 04/24/2013 6:06 AMBilirubin Total 1.0 mg/dL (0.2-1.2 mg/dL) AST (SGOT) 62 U/L H (15-41 U/L) ALT (SGPT) 40 U/L (17-63 U/L) Alkaline Phosphatase 279 U/L H (26-104 U/L) Albumin 2.2 g/dL L (3.5-4.8 g/dL) Anion Gap 6 (3-20 ) BUN 31 mg/dL H (4-20 mg/dL) Calcium 8.3 mg/dL L (8.6-10.0 mg/dL) Chloride 105 mEq/L (99-109 mEq/L) CO2 23 mEq/L (22-32 mEq/L) Creatinine 0.66 mg/dL (0.64-1.27 mg/dL) eGFR >60 (>60- ) Globulin 4.4 g/dL H (1.9-4.3 g/dL) Glucose 110 mg/dL H (70-100 mg/dL) Potassium 3.5 mEq/L L (3.6-5.1 mEq/L) LDH 449 U/L H (98-192 U/L) Magnesium 2.4 mg/dL (1.8-2.5 mg/dL) Sodium 134 mEq/L L (136-144 mEq/L) Phosphorus 2.9 mg/dL (2.4-4.7 mg/dL) Protein 6.6 g/dL (6.1-7.9 g/dL) Uric Acid 3.1 mg/dL L (4.8-8.7 mg/dL) LAB--CHEMISTRY from 04/25/2013 6:14 AMBilirubin Total 1.3 mg/dL H (0.2-1.2 mg/dL) AST (SGOT) 58 U/L H (15-41 U/L) ALT (SGPT) 43 U/L (17-63 U/L) Alkaline Phosphatase 252 U/L H (26-104 U/L) Albumin 2.5 g/dL L (3.5-4.8 g/dL) Anion Gap 4 (3-20 ) BUN 24 mg/dL H (4-20 mg/dL) Calcium 8.3 mg/dL L (8.6-10.0 mg/dL) Chloride 108 mEq/L (99-109 mEq/L) CO2 21 mEq/L L (22-32 mEq/L) Creatinine 0.57 mg/dL L (0.64-1.27 mg/dL) eGFR >60 (>60- ) Globulin 4.2 g/dL (1.9-4.3 g/dL) Glucose 92 mg/dL (70-100 mg/dL) Potassium 3.9 mEq/L (3.6-5.1 mEq/L) Magnesium 2.2 mg/dL (1.8-2.5 mg/dL) Sodium 133 mEq/L L (136-144 mEq/L) Phosphorus 2.3 mg/dL L (2.4-4.7 mg/dL) Protein 6.7 g/dL (6.1-7.9 g/dL) Uric Acid 1.9 mg/dL L (4.8-8.7 mg/dL) LAB--CHEMISTRY from 04/26/2013 4:28 AMBilirubin Total 1.1 mg/dL (0.2-1.2 mg/dL) AST (SGOT) 49 U/L H (15-41 U/L) ALT (SGPT) 48 U/L (17-63 U/L) Alkaline Phosphatase 290 U/L H (26-104 U/L) Albumin 2.9 g/dL L (3.5-4.8 g/dL) Anion Gap 7 (3-20 ) BUN 29 mg/dL H (4-20 mg/dL) Calcium 8.8 mg/dL (8.6-10.0 mg/dL) Chloride 103 mEq/L (99-109 mEq/L) CO2 25 mEq/L (22-32 mEq/L) Creatinine 0.65 mg/dL (0.64-1.27 mg/dL) eGFR >60 (>60- ) Globulin 4.8 g/dL H (1.9-4.3 g/dL) Glucose 88 mg/dL (70-100 mg/dL) Potassium 2.9 mEq/L L (3.6-5.1 mEq/L) Magnesium 2.3 mg/dL (1.8-2.5 mg/dL) Sodium 135 mEq/L L (136-144 mEq/L) Phosphorus 3.7 mg/dL (2.4-4.7 mg/dL) Protein 7.7 g/dL (6.1-7.9 g/dL) Uric Acid 2.3 mg/dL L (4.8-8.7 mg/dL) LAB--CHEMISTRY from 04/26/2013 5:17 PMAnion Gap 6 (3-20 ) BUN 26 mg/dL H (4-20 mg/dL) Calcium 8.7 mg/dL (8.6-10.0 mg/dL) Chloride 102 mEq/L (99-109 mEq/L) CO2 24 mEq/L (22-32 mEq/L) Creatinine 0.57 mg/dL L (0.64-1.27 mg/dL) eGFR >60 (>60- ) Glucose 154 mg/dL H (70-100 mg/dL) Potassium 4.3 mEq/L (3.6-5.1 mEq/L) Sodium 132 mEq/L L (136-144 mEq/L) LAB--CHEMISTRY from 04/27/2013 6:32 AMBilirubin Total 1.2 mg/dL (0.2-1.2 mg/dL) AST (SGOT) 42 U/L H (15-41 U/L) ALT (SGPT) 46 U/L (17-63 U/L) Alkaline Phosphatase 279 U/L H (26-104 U/L) Albumin 3.0 g/dL L (3.5-4.8 g/dL) Anion Gap 6 (3-20 ) BUN 29 mg/dL H (4-20 mg/dL) Calcium 8.9 mg/dL (8.6-10.0 mg/dL) Chloride 102 mEq/L (99-109 mEq/L) CO2 24 mEq/L (22-32 mEq/L) Creatinine 0.57 mg/dL L (0.64-1.27 mg/dL) eGFR >60 (>60- ) Globulin 4.5 g/dL H (1.9-4.3 g/dL) Glucose 93 mg/dL (70-100 mg/dL) Potassium 4.0 mEq/L (3.6-5.1 mEq/L) LDH 292 U/L H (98-192 U/L) Magnesium 2.2 mg/dL (1.8-2.5 mg/dL) Sodium 132 mEq/L L (136-144 mEq/L) Phosphorus 2.6 mg/dL (2.4-4.7 mg/dL) Protein 7.5 g/dL (6.1-7.9 g/dL) LAB--CHEMISTRY from 04/28/2013 4:34 AMBilirubin Total 1.1 mg/dL (0.2-1.2 mg/dL) AST (SGOT) 38 U/L (15-41 U/L) ALT (SGPT) 52 U/L (17-63 U/L) Alkaline Phosphatase 246 U/L H (26-104 U/L) Albumin 3.0 g/dL L (3.5-4.8 g/dL) Anion Gap 7 (3-20 ) BUN 24 mg/dL H (4-20 mg/dL) Calcium 8.7 mg/dL (8.6-10.0 mg/dL) Chloride 101 mEq/L (99-109 mEq/L) CO2 26 mEq/L (22-32 mEq/L) Creatinine 0.52 mg/dL L (0.64-1.27 mg/dL) eGFR >60 (>60- ) Globulin 4.0 g/dL (1.9-4.3 g/dL) Glucose 87 mg/dL (70-100 mg/dL) Potassium 3.6 mEq/L (3.6-5.1 mEq/L) LDH 232 U/L H (98-192 U/L) Magnesium 2.1 mg/dL (1.8-2.5 mg/dL) Sodium 134 mEq/L L (136-144 mEq/L) Phosphorus 2.7 mg/dL (2.4-4.7 mg/dL) Protein 7.0 g/dL (6.1-7.9 g/dL) LAB--CHEMISTRY from 04/29/2013 5:26 AMAnion Gap 5 (3-20 ) Albumin 2.7 g/dL L (3.5-4.8 g/dL) Alkaline Phosphatase 215 U/L H (26-104 U/L) ALT (SGPT) 48 U/L (17-63 U/L) AST (SGOT) 35 U/L (15-41 U/L) Bilirubin Total 1.3 mg/dL H (0.2-1.2 mg/dL) BUN 14 mg/dL (4-20 mg/dL) Calcium 8.5 mg/dL L (8.6-10.0 mg/dL) Chloride 106 mEq/L (99-109 mEq/L) CO2 25 mEq/L (22-32 mEq/L) Creatinine 0.43 mg/dL L (0.64-1.27 mg/dL) eGFR >60 (>60- ) Globulin 3.8 g/dL (1.9-4.3 g/dL) Glucose 84 mg/dL (70-100 mg/dL) Potassium 3.7 mEq/L (3.6-5.1 mEq/L) LDH 203 U/L H (98-192 U/L) Magnesium 2.0 mg/dL (1.8-2.5 mg/dL) Sodium 136 mEq/L (136-144 mEq/L) Phosphorus 2.1 mg/dL L (2.4-4.7 mg/dL) Protein 6.5 g/dL (6.1-7.9 g/dL) LAB--CHEMISTRY from 04/30/2013 5:31 AMAnion Gap 5 (3-20 ) Albumin 2.7 g/dL L (3.5-4.8 g/dL) Alkaline Phosphatase 228 U/L H (26-104 U/L) ALT (SGPT) 71 U/L H (17-63 U/L) AST (SGOT) 49 U/L H (15-41 U/L) Bilirubin Total 0.8 mg/dL (0.2-1.2 mg/dL) BUN 13 mg/dL (4-20 mg/dL) Calcium 8.6 mg/dL (8.6-10.0 mg/dL) Chloride 109 mEq/L (99-109 mEq/L) CO2 24 mEq/L (22-32 mEq/L) Creatinine 0.49 mg/dL L (0.64-1.27 mg/dL) eGFR >60 (>60- ) Globulin 3.7 g/dL (1.9-4.3 g/dL) Glucose 90 mg/dL (70-100 mg/dL) Potassium 3.5 mEq/L L (3.6-5.1 mEq/L) LDH 184 U/L (98-192 U/L) Magnesium 2.0 mg/dL (1.8-2.5 mg/dL) Sodium 138 mEq/L (136-144 mEq/L) Phosphorus 2.0 mg/dL L (2.4-4.7 mg/dL) Protein 6.4 g/dL (6.1-7.9 g/dL) LAB--CHEMISTRY from 05/01/2013 5:12 AMAnion Gap 6 (3-20 ) Albumin 2.8 g/dL L (3.5-4.8 g/dL) Alkaline Phosphatase 222 U/L H (26-104 U/L) ALT (SGPT) 61 U/L (17-63 U/L) AST (SGOT) 34 U/L (15-41 U/L) Bilirubin Total 0.7 mg/dL (0.2-1.2 mg/dL) BUN 13 mg/dL (4-20 mg/dL) Calcium 8.8 mg/dL (8.6-10.0 mg/dL) Chloride 107 mEq/L (99-109 mEq/L) CO2 24 mEq/L (22-32 mEq/L) Creatinine 0.50 mg/dL L (0.64-1.27 mg/dL) eGFR >60 (>60- ) Globulin 3.5 g/dL (1.9-4.3 g/dL) Glucose 87 mg/dL (70-100 mg/dL) Potassium 3.8 mEq/L (3.6-5.1 mEq/L) LDH 166 U/L (98-192 U/L) Magnesium 1.9 mg/dL (1.8-2.5 mg/dL) Sodium 137 mEq/L (136-144 mEq/L) Phosphorus 2.2 mg/dL L (2.4-4.7 mg/dL) Protein 6.3 g/dL (6.1-7.9 g/dL) LAB--CHEMISTRY from 05/02/2013 5:25 AMBilirubin Total 0.6 mg/dL (0.2-1.2 mg/dL) AST (SGOT) 32 U/L (15-41 U/L) ALT (SGPT) 57 U/L (17-63 U/L) Alkaline Phosphatase 222 U/L H (26-104 U/L) Albumin 2.9 g/dL L (3.5-4.8 g/dL) Anion Gap 5 (3-20 ) BUN 14 mg/dL (4-20 mg/dL) Calcium 8.8 mg/dL (8.6-10.0 mg/dL) Chloride 106 mEq/L (99-109 mEq/L) CO2 26 mEq/L (22-32 mEq/L) Creatinine 0.44 mg/dL L (0.64-1.27 mg/dL) eGFR >60 (>60- ) Globulin 3.5 g/dL (1.9-4.3 g/dL) Glucose 88 mg/dL (70-100 mg/dL) Potassium 4.0 mEq/L (3.6-5.1 mEq/L) LDH 174 U/L (98-192 U/L) Magnesium 1.9 mg/dL (1.8-2.5 mg/dL) Sodium 137 mEq/L (136-144 mEq/L) Phosphorus 3.0 mg/dL (2.4-4.7 mg/dL) Protein 6.4 g/dL (6.1-7.9 g/dL) LAB--CHEMISTRY from 05/03/2013 4:37 AMBilirubin Total 0.5 mg/dL (0.2-1.2 mg/dL) AST (SGOT) 37 U/L (15-41 U/L) ALT (SGPT) 65 U/L H (17-63 U/L) Alkaline Phosphatase 215 U/L H (26-104 U/L) Albumin 2.8 g/dL L (3.5-4.8 g/dL) Anion Gap 5 (3-20 ) BUN 13 mg/dL (4-20 mg/dL) Calcium 8.7 mg/dL (8.6-10.0 mg/dL) Chloride 105 mEq/L (99-109 mEq/L) CO2 28 mEq/L (22-32 mEq/L) Creatinine 0.50 mg/dL L (0.64-1.27 mg/dL) eGFR >60 (>60- ) Globulin 3.4 g/dL (1.9-4.3 g/dL) Glucose 89 mg/dL (70-100 mg/dL) Potassium 4.1 mEq/L (3.6-5.1 mEq/L) LDH 181 U/L (98-192 U/L) Magnesium 1.9 mg/dL (1.8-2.5 mg/dL) Sodium 138 mEq/L (136-144 mEq/L) Phosphorus 2.8 mg/dL (2.4-4.7 mg/dL) Protein 6.2 g/dL (6.1-7.9 g/dL) LAB--CHEMISTRY from 05/04/2013 5:45 AMBilirubin Total 0.6 mg/dL (0.2-1.2 mg/dL) AST (SGOT) 37 U/L (15-41 U/L) ALT (SGPT) 67 U/L H (17-63 U/L) Alkaline Phosphatase 194 U/L H (26-104 U/L) Albumin 2.7 g/dL L (3.5-4.8 g/dL) Anion Gap 6 (3-20 ) BUN 15 mg/dL (4-20 mg/dL) Calcium 8.7 mg/dL (8.6-10.0 mg/dL) Chloride 104 mEq/L (99-109 mEq/L) CO2 28 mEq/L (22-32 mEq/L) Creatinine 0.52 mg/dL L (0.64-1.27 mg/dL) eGFR >60 (>60- ) Globulin 3.2 g/dL (1.9-4.3 g/dL) Glucose 83 mg/dL (70-100 mg/dL) Potassium 3.7 mEq/L (3.6-5.1 mEq/L) LDH 164 U/L (98-192 U/L) Magnesium 1.8 mg/dL (1.8-2.5 mg/dL) Sodium 138 mEq/L (136-144 mEq/L) Phosphorus 3.1 mg/dL (2.4-4.7 mg/dL) Protein 5.9 g/dL L (6.1-7.9 g/dL) LAB--CHEMISTRY from 05/05/2013 4:43 AMBilirubin Total 0.6 mg/dL (0.2-1.2 mg/dL) AST (SGOT) 27 U/L (15-41 U/L) ALT (SGPT) 54 U/L (17-63 U/L) Alkaline Phosphatase 183 U/L H (26-104 U/L) Albumin 2.6 g/dL L (3.5-4.8 g/dL) Anion Gap 3 (3-20 ) BUN 15 mg/dL (4-20 mg/dL) Calcium 8.7 mg/dL (8.6-10.0 mg/dL) Chloride 106 mEq/L (99-109 mEq/L) CO2 30 mEq/L (22-32 mEq/L) Creatinine 0.49 mg/dL L (0.64-1.27 mg/dL) eGFR >60 (>60- ) Globulin 3.2 g/dL (1.9-4.3 g/dL) Glucose 85 mg/dL (70-100 mg/dL) Potassium 4.0 mEq/L (3.6-5.1 mEq/L) LDH 157 U/L (98-192 U/L) Magnesium 2.0 mg/dL (1.8-2.5 mg/dL) Sodium 139 mEq/L (136-144 mEq/L) Phosphorus 3.3 mg/dL (2.4-4.7 mg/dL) Protein 5.8 g/dL L (6.1-7.9 g/dL) LAB--CHEMISTRY from 05/06/2013 7:44 AMAnion Gap 9 (3-20 ) Albumin 2.6 g/dL L (3.5-4.8 g/dL) Alkaline Phosphatase 181 U/L H (26-104 U/L) ALT (SGPT) 52 U/L (17-63 U/L) AST (SGOT) 30 U/L (15-41 U/L) Bilirubin Total 0.4 mg/dL (0.2-1.2 mg/dL) BUN 14 mg/dL (4-20 mg/dL) Calcium 8.6 mg/dL (8.6-10.0 mg/dL) Chloride 103 mEq/L (99-109 mEq/L) CO2 27 mEq/L (22-32 mEq/L) Creatinine 0.59 mg/dL L (0.64-1.27 mg/dL) eGFR >60 (>60- ) Globulin 2.8 g/dL (1.9-4.3 g/dL) Glucose 100 mg/dL (70-100 mg/dL) Potassium 3.3 mEq/L L (3.6-5.1 mEq/L) LDH 172 U/L (98-192 U/L) Magnesium 1.9 mg/dL (1.8-2.5 mg/dL) Sodium 139 mEq/L (136-144 mEq/L) Phosphorus 2.9 mg/dL (2.4-4.7 mg/dL) Protein 5.4 g/dL L (6.1-7.9 g/dL) LAB--CHEMISTRY from 05/07/2013 7:30 AMAnion Gap 6 (3-20 ) Albumin 2.6 g/dL L (3.5-4.8 g/dL) Alkaline Phosphatase 163 U/L H (26-104 U/L) ALT (SGPT) 44 U/L (17-63 U/L) AST (SGOT) 28 U/L (15-41 U/L) Bilirubin Total 0.6 mg/dL (0.2-1.2 mg/dL) BUN 13 mg/dL (4-20 mg/dL) Calcium 8.4 mg/dL L (8.6-10.0 mg/dL) Chloride 107 mEq/L (99-109 mEq/L) CO2 25 mEq/L (22-32 mEq/L) Creatinine 0.55 mg/dL L (0.64-1.27 mg/dL) eGFR >60 (>60- ) Globulin 3.0 g/dL (1.9-4.3 g/dL) Glucose 95 mg/dL (70-100 mg/dL) Potassium 3.2 mEq/L L (3.6-5.1 mEq/L) LDH 173 U/L (98-192 U/L) Magnesium 1.9 mg/dL (1.8-2.5 mg/dL) Sodium 138 mEq/L (136-144 mEq/L) Phosphorus 2.8 mg/dL (2.4-4.7 mg/dL) Protein 5.6 g/dL L (6.1-7.9 g/dL) LAB--CHEMISTRY from 05/08/2013 4:38 AMAnion Gap 3 (3-20 ) Albumin 2.4 g/dL L (3.5-4.8 g/dL) Alkaline Phosphatase 144 U/L H (26-104 U/L) ALT (SGPT) 43 U/L (17-63 U/L) AST (SGOT) 27 U/L (15-41 U/L) Bilirubin Total 0.5 mg/dL (0.2-1.2 mg/dL) BUN 9 mg/dL (4-20 mg/dL) Calcium 8.2 mg/dL L (8.6-10.0 mg/dL) Chloride 110 mEq/L H (99-109 mEq/L) CO2 26 mEq/L (22-32 mEq/L) Creatinine 0.48 mg/dL L (0.64-1.27 mg/dL) eGFR >60 (>60- ) Globulin 2.7 g/dL (1.9-4.3 g/dL) Glucose 84 mg/dL (70-100 mg/dL) Potassium 3.7 mEq/L (3.6-5.1 mEq/L) LDH 189 U/L (98-192 U/L) Magnesium 2.0 mg/dL (1.8-2.5 mg/dL) Sodium 139 mEq/L (136-144 mEq/L) Phosphorus 3.2 mg/dL (2.4-4.7 mg/dL) Protein 5.1 g/dL L (6.1-7.9 g/dL) LAB--CHEMISTRY from 05/09/2013 6:19 AMAnion Gap 4 (3-20 ) Albumin 2.7 g/dL L (3.5-4.8 g/dL) Alkaline Phosphatase 152 U/L H (26-104 U/L) ALT (SGPT) 55 U/L (17-63 U/L) AST (SGOT) 38 U/L (15-41 U/L) Bilirubin Total 0.6 mg/dL (0.2-1.2 mg/dL) BUN 9 mg/dL (4-20 mg/dL) Calcium 8.8 mg/dL (8.6-10.0 mg/dL) Chloride 105 mEq/L (99-109 mEq/L) CO2 31 mEq/L (22-32 mEq/L) Creatinine 0.58 mg/dL L (0.64-1.27 mg/dL) eGFR >60 (>60- ) Globulin 3.3 g/dL (1.9-4.3 g/dL) Glucose 87 mg/dL (70-100 mg/dL) Potassium 4.0 mEq/L (3.6-5.1 mEq/L) LDH 190 U/L (98-192 U/L) Magnesium 2.2 mg/dL (1.8-2.5 mg/dL) Sodium 140 mEq/L (136-144 mEq/L) Phosphorus 4.4 mg/dL (2.4-4.7 mg/dL) Protein 6.0 g/dL L (6.1-7.9 g/dL) LAB--CHEMISTRY from 05/10/2013 7:20 AMAnion Gap 7 (3-20 ) Albumin 2.7 g/dL L (3.5-4.8 g/dL) Alkaline Phosphatase 140 U/L H (26-104 U/L) ALT (SGPT) 50 U/L (17-63 U/L) AST (SGOT) 31 U/L (15-41 U/L) Bilirubin Total 0.5 mg/dL (0.2-1.2 mg/dL) BUN 18 mg/dL (4-20 mg/dL) Calcium 8.6 mg/dL (8.6-10.0 mg/dL) Chloride 104 mEq/L (99-109 mEq/L) CO2 28 mEq/L (22-32 mEq/L) Creatinine 0.59 mg/dL L (0.64-1.27 mg/dL) eGFR >60 (>60- ) Globulin 2.9 g/dL (1.9-4.3 g/dL) Glucose 88 mg/dL (70-100 mg/dL) Potassium 4.1 mEq/L (3.6-5.1 mEq/L) LDH 204 U/L H (98-192 U/L) Magnesium 2.2 mg/dL (1.8-2.5 mg/dL) Sodium 139 mEq/L (136-144 mEq/L) Phosphorus 3.7 mg/dL (2.4-4.7 mg/dL) Protein 5.6 g/dL L (6.1-7.9 g/dL) LAB--COAG STUDIES from 04/13/2013 6:16 PMPTT 21.0 sec L (25.0-35.0 sec) INR 1.0 (0.9-1.2 ) LAB--COAG STUDIES from 04/15/2013 9:33 AMPTT 22.9 sec L (25.0-35.0 sec) INR 1.1 (0.9-1.2 ) LAB--COAG STUDIES from 05/08/2013 4:38 AMINR 1.0 (0.9-1.2 ) PTT 21.7 sec L (25.0-35.0 sec) LAB--HEMATOLOGY from 04/13/2013 6:16 PMAbsolute Basophils 0.12 THOUS (0.00-0.20 THOUS) Absolute Eosinophils 0.25 THOUS (0.00-0.50 THOUS) Absolute Lymphocytes 0.98 THOUS (0.80-3.30 THOUS) Absolute Monocytes 0.62 THOUS (0.30-1.00 THOUS) Absolute Neutrophils 10.09 THOUS H (1.90-7.00 THOUS) HCT 29.4 % L (42.0-52.0 %) HGB 9.8 g/dl L (14.0-18.0 g/dl) MCH 29.8 pg (27.0-32.0 pg) MCHC 33.3 g/dL (32.0-36.0 g/dL) MCV 89.4 fL (82.0-99.0 fL) Platelet Count 10 K/uL L (150-400 K/uL) RBC 3.29 M/uL L (4.60-6.20 M/uL) RDW 14.6 % H (11.5-14.5 %) WBC 12.3 K/uL H (4.8-10.8 K/uL) Basophils 1 % (0-2 %) Eosinophils 2 % (0-4 %) Lymphocytes 8 % L (20-46 %) Metamyelocytes 1 % (0-1 %) Monocytes 5 % (4-11 %) Myelocytes 1 % Nucleated RBC Automated 0.6 /100 WBC (0 /100 WBC) Polychromasia Occasional A Differential Manual A Neutrophils 82 % H (51-75 %) LAB--HEMATOLOGY from 04/13/2013 9:54 PMRBC 3.10 M/uL L (4.60-6.20 M/uL) RDW 14.4 % (11.5-14.5 %) WBC 12.4 K/uL H (4.8-10.8 K/uL) MCV 88.7 fL (82.0-99.0 fL) MCHC 33.1 g/dL (32.0-36.0 g/dL) MCH 29.4 pg (27.0-32.0 pg) HGB 9.1 g/dl L (14.0-18.0 g/dl) HCT 27.5 % L (42.0-52.0 %) Platelet Count 8 K/uL LL (150-400 K/uL) LAB--HEMATOLOGY from 04/14/2013 6:34 AMHCT 25.9 % L (42.0-52.0 %) HGB 8.4 g/dl L (14.0-18.0 g/dl) MCH 29.5 pg (27.0-32.0 pg) MCHC 32.4 g/dL (32.0-36.0 g/dL) MCV 90.9 fL (82.0-99.0 fL) Platelet Count 10 K/uL L (150-400 K/uL) RBC 2.85 M/uL L (4.60-6.20 M/uL) RDW 14.9 % H (11.5-14.5 %) WBC 10.8 K/uL (4.8-10.8 K/uL) Basophils 0 % (0-2 %) Eosinophils 5 % H (0-4 %) Lymphocytes 0 % L (20-46 %) Monocytes 3 % L (4-11 %) Nucleated RBC Automated 0.5 /100 WBC (0 /100 WBC) Absolute Neutrophils 9.94 THOUS H (1.90-7.00 THOUS) Absolute Monocytes 0.32 THOUS (0.30-1.00 THOUS) Absolute Lymphocytes 0.00 THOUS L (0.80-3.30 THOUS) Bands 2 % (0-8 %) Absolute Eosinophils 0.54 THOUS H (0.00-0.50 THOUS) Absolute Basophils 0.00 THOUS (0.00-0.20 THOUS) Polychromasia Occasional A Differential Manual A Neutrophils 90 % H (51-75 %) LAB--HEMATOLOGY from 04/14/2013 10:07 AMHGB 8.4 g/dl L (14.0-18.0 g/dl) HCT 26.2 % L (42.0-52.0 %) LAB--HEMATOLOGY from 04/14/2013 4:08 PMHGB 8.3 g/dl L (14.0-18.0 g/dl) HCT 25.5 % L (42.0-52.0 %) LAB--HEMATOLOGY from 04/14/2013 10:07 PMHCT 27.2 % L (42.0-52.0 %) HGB 8.8 g/dl L (14.0-18.0 g/dl) LAB--HEMATOLOGY from 04/15/2013 3:55 AMAbsolute Basophils 0.02 THOUS (0.00-0.20 THOUS) Absolute Eosinophils 0.02 THOUS (0.00-0.50 THOUS) Absolute Lymphocytes 0.36 THOUS L (0.80-3.30 THOUS) Absolute Monocytes 0.36 THOUS (0.30-1.00 THOUS) Absolute Neutrophils 8.28 THOUS H (1.90-7.00 THOUS) HCT 26.9 % L (42.0-52.0 %) HGB 8.7 g/dl L (14.0-18.0 g/dl) MCH 29.4 pg (27.0-32.0 pg) MCHC 32.3 g/dL (32.0-36.0 g/dL) MCV 90.9 fL (82.0-99.0 fL) Platelet Count 7 K/uL LL (150-400 K/uL) RBC 2.96 M/uL L (4.60-6.20 M/uL) RDW 15.1 % H (11.5-14.5 %) WBC 9.0 K/uL (4.8-10.8 K/uL) Bands 1 % (0-8 %) Basophils 0 % (0-2 %) Eosinophils 0 % (0-4 %) Lymphocytes 4 % L (20-46 %) Monocytes 4 % (4-11 %) Nucleated RBC Automated 0.3 /100 WBC (0 /100 WBC) Polychromasia Occasional A Differential Reviewed Neutrophils 91 % H (51-75 %) LAB--HEMATOLOGY from 04/15/2013 9:33 AMHGB 8.5 g/dl L (14.0-18.0 g/dl) HCT 26.0 % L (42.0-52.0 %) LAB--HEMATOLOGY from 04/15/2013 1:49 PMHCT 26.3 % L (42.0-52.0 %) HGB 8.6 g/dl L (14.0-18.0 g/dl) MCH 29.6 pg (27.0-32.0 pg) MCHC 32.7 g/dL (32.0-36.0 g/dL) MCV 90.4 fL (82.0-99.0 fL) Platelet Count 10 K/uL L (150-400 K/uL) RBC 2.91 M/uL L (4.60-6.20 M/uL) RDW 15.2 % H (11.5-14.5 %) WBC 11.4 K/uL H (4.8-10.8 K/uL) LAB--HEMATOLOGY from 04/15/2013 3:46 PMHGB 8.7 g/dl L (14.0-18.0 g/dl) HCT 26.8 % L (42.0-52.0 %) LAB--HEMATOLOGY from 04/16/2013 3:36 AMBasophils 0 % (0-2 %) Eosinophils 1 % (0-4 %) Lymphocytes 3 % L (20-46 %) Monocytes 2 % L (4-11 %) Nucleated RBC Automated 0.2 /100 WBC (0 /100 WBC) MCV 92.1 fL (82.0-99.0 fL) MCHC 32.3 g/dL (32.0-36.0 g/dL) MCH 29.7 pg (27.0-32.0 pg) HGB 9.0 g/dl L (14.0-18.0 g/dl) HCT 27.9 % L (42.0-52.0 %) Platelet Count 9 K/uL LL (150-400 K/uL) Absolute Neutrophils 11.84 THOUS H (1.90-7.00 THOUS) RBC 3.03 M/uL L (4.60-6.20 M/uL) Absolute Monocytes 0.25 THOUS L (0.30-1.00 THOUS) RDW 15.7 % H (11.5-14.5 %) Absolute Lymphocytes 0.38 THOUS L (0.80-3.30 THOUS) WBC 12.6 K/uL H (4.8-10.8 K/uL) Absolute Eosinophils 0.13 THOUS (0.00-0.50 THOUS) Absolute Basophils 0.02 THOUS (0.00-0.20 THOUS) Polychromasia Occasional A Differential Reviewed Neutrophils 94 % H (51-75 %) LAB--HEMATOLOGY from 04/16/2013 3:48 PMHGB 10.1 g/dl L (14.0-18.0 g/dl) HCT 31.2 % L (42.0-52.0 %) LAB--HEMATOLOGY from 04/17/2013 6:26 AMHCT 31.3 % L (42.0-52.0 %) HGB 10.3 g/dl L (14.0-18.0 g/dl) MCH 29.6 pg (27.0-32.0 pg) MCHC 32.9 g/dL (32.0-36.0 g/dL) MCV 89.9 fL (82.0-99.0 fL) Platelet Count 10 K/uL L (150-400 K/uL) RBC 3.48 M/uL L (4.60-6.20 M/uL) RDW 15.6 % H (11.5-14.5 %) WBC 12.0 K/uL H (4.8-10.8 K/uL) Bands 1 % (0-8 %) Basophils 1 % (0-2 %) Eosinophils 3 % (0-4 %) Lymphocytes 4 % L (20-46 %) Monocytes 2 % L (4-11 %) Nucleated RBC Automated 0.4 /100 WBC (0 /100 WBC) Absolute Neutrophils 10.80 THOUS H (1.90-7.00 THOUS) Absolute Monocytes 0.24 THOUS L (0.30-1.00 THOUS) Absolute Lymphocytes 0.48 THOUS L (0.80-3.30 THOUS) Absolute Eosinophils 0.36 THOUS (0.00-0.50 THOUS) Absolute Basophils 0.12 THOUS (0.00-0.20 THOUS) Polychromasia Occasional A Differential Reviewed Neutrophils 89 % H (51-75 %) LAB--HEMATOLOGY from 04/17/2013 4:01 PMHGB 10.1 g/dl L (14.0-18.0 g/dl) HCT 30.8 % L (42.0-52.0 %) LAB--HEMATOLOGY from 04/18/2013 5:06 AMAbsolute Neutrophils 12.06 THOUS H (1.90- 7.00 THOUS) Absolute Monocytes 0.13 THOUS L (0.30-1.00 THOUS) RBC 3.44 M/uL L (4.60-6.20 M/uL) RDW 15.8 % H (11.5-14.5 %) Absolute Lymphocytes 1.07 THOUS (0.80-3.30 THOUS) WBC 13.4 K/uL H (4.8-10.8 K/uL) Bands 3 % (0-8 %) Absolute Eosinophils 0.13 THOUS (0.00-0.50 THOUS) Basophils 0 % (0-2 %) Eosinophils 1 % (0-4 %) Lymphocytes 8 % L (20-46 %) Absolute Basophils 0.00 THOUS (0.00-0.20 THOUS) Monocytes 1 % L (4-11 %) Nucleated RBC Automated 0.0 /100 WBC (0 /100 WBC) MCV 90.1 fL (82.0-99.0 fL) MCHC 32.6 g/dL (32.0-36.0 g/dL) MCH 29.4 pg (27.0-32.0 pg) HGB 10.1 g/dl L (14.0-18.0 g/dl) HCT 31.0 % L (42.0-52.0 %) Platelet Count 9 K/uL LL (150-400 K/uL) Differential Manual A Neutrophils 87 % H (51-75 %) LAB--HEMATOLOGY from 04/18/2013 3:52 PMHGB 10.5 g/dl L (14.0-18.0 g/dl) HCT 32.3 % L (42.0-52.0 %) LAB--HEMATOLOGY from 04/19/2013 4:29 AMHCT 30.1 % L (42.0-52.0 %) HGB 9.8 g/dl L (14.0-18.0 g/dl) MCH 29.4 pg (27.0-32.0 pg) MCHC 32.6 g/dL (32.0-36.0 g/dL) MCV 90.4 fL (82.0-99.0 fL) Platelet Count 8 K/uL LL (150-400 K/uL) Absolute Neutrophils 9.63 THOUS H (1.90-7.00 THOUS) Absolute Monocytes 0.70 THOUS (0.30-1.00 THOUS) RBC 3.33 M/uL L (4.60-6.20 M/uL) RDW 15.8 % H (11.5-14.5 %) Absolute Lymphocytes 1.04 THOUS (0.80-3.30 THOUS) WBC 11.7 K/uL H (4.8-10.8 K/uL) Absolute Eosinophils 0.23 THOUS (0.00-0.50 THOUS) Basophils 0 % (0-2 %) Eosinophils 2 % (0-4 %) Lymphocytes 9 % L (20-46 %) Absolute Basophils 0.00 THOUS (0.00-0.20 THOUS) Monocytes 6 % (4-11 %) Nucleated RBC Automated 0.0 /100 WBC (0 /100 WBC) Nucleated RBC 1 /100 WBC H (-1-0 /100 WBC) Differential Manual A Neutrophils 83 % H (51-75 %) LAB--HEMATOLOGY from 04/19/2013 8:17 AMPlatelet Count 8 K/uL LL (150-400 K/uL) LAB--HEMATOLOGY from 04/19/2013 3:51 PMHGB 9.5 g/dl L (14.0-18.0 g/dl) HCT 28.8 % L (42.0-52.0 %) LAB--HEMATOLOGY from 04/20/2013 6:44 AMRBC 3.14 M/uL L (4.60-6.20 M/uL) RDW 15.6 % H (11.5-14.5 %) WBC 10.6 K/uL (4.8-10.8 K/uL) Basophils 0 % (0-2 %) Eosinophils 1 % (0-4 %) Immature Granulocytes 0.7 % (0.0-1.0 %) Lymphocytes 7 % L (20-46 %) Monocytes 6 % (4-11 %) Nucleated RBC Automated 0.0 /100 WBC (0 /100 WBC) MCV 89.5 fL (82.0-99.0 fL) MCHC 32.7 g/dL (32.0-36.0 g/dL) MCH 29.3 pg (27.0-32.0 pg) HGB 9.2 g/dl L (14.0-18.0 g/dl) HCT 28.1 % L (42.0-52.0 %) Platelet Count 6 K/uL LL (150-400 K/uL) Absolute Neutrophils 8.99 THOUS H (1.90-7.00 THOUS) Absolute Monocytes 0.66 THOUS (0.30-1.00 THOUS) Absolute Lymphocytes 0.76 THOUS L (0.80-3.30 THOUS) Absolute Eosinophils 0.13 THOUS (0.00-0.50 THOUS) Absolute Basophils 0.02 THOUS (0.00-0.20 THOUS) Differential Scanned Slide Neutrophils 85 % H (51-75 %) LAB--HEMATOLOGY from 04/20/2013 9:54 AMSchistocyte Count 0.0 % (-1.0-0.0 %) LAB--HEMATOLOGY from 04/20/2013 4:09 PMHGB 9.7 g/dl L (14.0-18.0 g/dl) HCT 30.4 % L (42.0-52.0 %) LAB--HEMATOLOGY from 04/21/2013 6:42 AMRDW - % (11.5-14.5 %) WBC - K/uL (4.8-10.8 K/uL) MCV - fL (82.0-99.0 fL) MCHC - g/dL (32.0-36.0 g/dL) MCH - pg (27.0-32.0 pg) HGB - g/dl (14.0-18.0 g/dl) HCT - % (42.0-52.0 %) Platelet Count - K/uL (150-400 K/uL) RBC - M/uL (4.60-6.20 M/uL) LAB--HEMATOLOGY from 04/21/2013 9:54 AMAbsolute Neutrophils 9.08 THOUS H (1.90- 7.00 THOUS) Absolute Monocytes 0.22 THOUS L (0.30-1.00 THOUS) Absolute Lymphocytes 0.56 THOUS L (0.80-3.30 THOUS) Absolute Eosinophils 0.07 THOUS (0.00-0.50 THOUS) Basophils 0 % (0-2 %) Eosinophils 1 % (0-4 %) Immature Granulocytes 0.9 % (0.0-1.0 %) Lymphocytes 6 % L (20-46 %) Absolute Basophils 0.03 THOUS (0.00-0.20 THOUS) Monocytes 2 % L (4-11 %) Nucleated RBC Automated 0.0 /100 WBC (0 /100 WBC) MCHC 32.7 g/dL (32.0-36.0 g/dL) MCH 29.3 pg (27.0-32.0 pg) MCV 89.4 fL (82.0-99.0 fL) HGB 9.1 g/dl L (14.0-18.0 g/dl) HCT 27.8 % L (42.0-52.0 %) Platelet Count 6 K/uL LL (150-400 K/uL) RBC 3.11 M/uL L (4.60-6.20 M/uL) RDW 15.4 % H (11.5-14.5 %) WBC 10.0 K/uL (4.8-10.8 K/uL) Polychromasia Occasional A Neutrophils 90 % H (51-75 %) LAB--HEMATOLOGY from 04/21/2013 4:41 PMHGB 9.4 g/dl L (14.0-18.0 g/dl) HCT 29.2 % L (42.0-52.0 %) LAB--HEMATOLOGY from 04/22/2013 5:23 AMMCH 29.0 pg (27.0-32.0 pg) MCHC 32.4 g/dL (32.0-36.0 g/dL) HGB 8.2 g/dl L (14.0-18.0 g/dl) MCV 89.4 fL (82.0-99.0 fL) HCT 25.3 % L (42.0-52.0 %) Absolute Neutrophils 7.74 THOUS H (1.90-7.00 THOUS) Platelet Count 2 K/uL LL (150-400 K/uL) Absolute Monocytes 0.08 THOUS L (0.30-1.00 THOUS) RBC 2.83 M/uL L (4.60-6.20 M/uL) Absolute Lymphocytes 0.28 THOUS L (0.80-3.30 THOUS) RDW 15.4 % H (11.5-14.5 %) WBC 8.1 K/uL (4.8-10.8 K/uL) Absolute Eosinophils 0.01 THOUS (0.00-0.50 THOUS) Basophils 0 % (0-2 %) Eosinophils 0 % (0-4 %) Absolute Basophils 0.00 THOUS (0.00-0.20 THOUS) Immature Granulocytes 0.4 % (0.0-1.0 %) Lymphocytes 3 % L (20-46 %) Monocytes 1 % L (4-11 %) Nucleated RBC Automated 0.0 /100 WBC (0 /100 WBC) Differential Manual A Neutrophils 95 % H (51-75 %) LAB--HEMATOLOGY from 04/23/2013 6:04 AMHCT 24.5 % L (42.0-52.0 %) HGB 8.1 g/dl L (14.0-18.0 g/dl) MCH 29.3 pg (27.0-32.0 pg) MCHC 33.1 g/dL (32.0-36.0 g/dL) MCV 88.8 fL (82.0-99.0 fL) Platelet Count 7 K/uL LL (150-400 K/uL) RBC 2.76 M/uL L (4.60-6.20 M/uL) RDW 15.5 % H (11.5-14.5 %) WBC 9.1 K/uL (4.8-10.8 K/uL) Basophils 2 % (0-2 %) Eosinophils 5 % H (0-4 %) Lymphocytes 4 % L (20-46 %) Monocytes 0 % L (4-11 %) Nucleated RBC Automated 0.0 /100 WBC (0 /100 WBC) Absolute Neutrophils 8.19 THOUS H (1.90-7.00 THOUS) Absolute Monocytes 0.00 THOUS L (0.30-1.00 THOUS) Absolute Lymphocytes 0.36 THOUS L (0.80-3.30 THOUS) Absolute Eosinophils 0.46 THOUS (0.00-0.50 THOUS) Absolute Basophils 0.18 THOUS (0.00-0.20 THOUS) Differential Reviewed Neutrophils 90 % H (51-75 %) LAB--HEMATOLOGY from 04/24/2013 6:06 AMHGB 6.9 g/dl L (14.0-18.0 g/dl) MCH 29.1 pg (27.0-32.0 pg) MCHC 32.5 g/dL (32.0-36.0 g/dL) MCV 89.5 fL (82.0-99.0 fL) HCT 21.2 % L (42.0-52.0 %) Platelet Count 6 K/uL LL (150-400 K/uL) RBC 2.37 M/uL L (4.60-6.20 M/uL) RDW 15.4 % H (11.5-14.5 %) WBC 29.3 K/uL H (4.8-10.8 K/uL) Bands 2 % (0-8 %) Basophils 0 % (0-2 %) Eosinophils 2 % (0-4 %) Lymphocytes 1 % L (20-46 %) Monocytes 0 % L (4-11 %) Nucleated RBC Automated 0.0 /100 WBC (0 /100 WBC) Absolute Neutrophils 28.42 THOUS H (1.90-7.00 THOUS) Absolute Monocytes 0.00 THOUS L (0.30-1.00 THOUS) Absolute Lymphocytes 0.29 THOUS L (0.80-3.30 THOUS) Absolute Eosinophils 0.59 THOUS H (0.00-0.50 THOUS) Absolute Basophils 0.03 THOUS (0.00-0.20 THOUS) Differential Reviewed Neutrophils 95 % H (51-75 %) LAB--HEMATOLOGY from 04/25/2013 6:14 AMAbsolute Neutrophils 19.35 THOUS H (1.90- 7.00 THOUS) Absolute Monocytes 0.05 THOUS L (0.30-1.00 THOUS) RBC 3.20 M/uL L (4.60-6.20 M/uL) Absolute Lymphocytes 0.58 THOUS L (0.80-3.30 THOUS) RDW 16.1 % H (11.5-14.5 %) WBC 21.9 K/uL H (4.8-10.8 K/uL) Absolute Eosinophils 0.32 THOUS (0.00-0.50 THOUS) Basophils 0 % (0-2 %) Eosinophils 2 % (0-4 %) Absolute Basophils 0.05 THOUS (0.00-0.20 THOUS) Immature Granulocytes 7.2 % H (0.0-1.0 %) Lymphocytes 3 % L (20-46 %) Monocytes 0 % L (4-11 %) Nucleated RBC Automated 0.0 /100 WBC (0 /100 WBC) MCHC 33.8 g/dL (32.0-36.0 g/dL) MCH 29.1 pg (27.0-32.0 pg) HGB 9.3 g/dl L (14.0-18.0 g/dl) MCV 85.9 fL (82.0-99.0 fL) HCT 27.5 % L (42.0-52.0 %) Platelet Count 3 K/uL LL (150-400 K/uL) Polychromasia Occasional A Differential Scanned Slide Neutrophils 88 % H (51-75 %) LAB--HEMATOLOGY from 04/26/2013 4:28 AMHCT 29.7 % L (42.0-52.0 %) HGB 10.0 g/dl L (14.0-18.0 g/dl) MCH 29.2 pg (27.0-32.0 pg) MCHC 33.7 g/dL (32.0-36.0 g/dL) MCV 86.6 fL (82.0-99.0 fL) Platelet Count 5 K/uL LL (150-400 K/uL) RBC 3.43 M/uL L (4.60-6.20 M/uL) RDW 16.1 % H (11.5-14.5 %) WBC 12.4 K/uL H (4.8-10.8 K/uL) Basophils 2 % (0-2 %) Eosinophils 1 % (0-4 %) Lymphocytes 6 % L (20-46 %) Monocytes 0 % L (4-11 %) Nucleated RBC Automated 0.0 /100 WBC (0 /100 WBC) Absolute Neutrophils 11.28 THOUS H (1.90-7.00 THOUS) Absolute Monocytes 0.00 THOUS L (0.30-1.00 THOUS) Absolute Lymphocytes 0.74 THOUS L (0.80-3.30 THOUS) Absolute Eosinophils 0.12 THOUS (0.00-0.50 THOUS) Absolute Basophils 0.25 THOUS H (0.00-0.20 THOUS) Differential Reviewed Neutrophils 91 % H (51-75 %) LAB--HEMATOLOGY from 04/26/2013 11:30 AMPlatelet Count 5 K/uL LL (150-400 K/uL) LAB--HEMATOLOGY from 04/27/2013 6:32 AMAbsolute Basophils 0.04 THOUS (0.00-0.20 THOUS) Absolute Eosinophils 0.26 THOUS (0.00-0.50 THOUS) Absolute Lymphocytes 1.16 THOUS (0.80-3.30 THOUS) Absolute Monocytes 0.04 THOUS L (0.30-1.00 THOUS) Absolute Neutrophils 2.80 THOUS (1.90-7.00 THOUS) RBC 3.13 M/uL L (4.60-6.20 M/uL) RDW 15.6 % H (11.5-14.5 %) WBC 4.3 K/uL L (4.8-10.8 K/uL) Bands 2 % (0-8 %) Basophils 1 % (0-2 %) Eosinophils 6 % H (0-4 %) Lymphocytes 27 % (20-46 %) Monocytes 1 % L (4-11 %) Nucleated RBC Automated 0.0 /100 WBC (0 /100 WBC) MCHC 33.3 g/dL (32.0-36.0 g/dL) MCH 29.1 pg (27.0-32.0 pg) HGB 9.1 g/dl L (14.0-18.0 g/dl) HCT 27.3 % L (42.0-52.0 %) MCV 87.2 fL (82.0-99.0 fL) Platelet Count 5 K/uL LL (150-400 K/uL) Differential Manual A Neutrophils 63 % (51-75 %) LAB--HEMATOLOGY from 04/27/2013 3:14 PMPlatelet Count 4 K/uL LL (150-400 K/uL) LAB--HEMATOLOGY from 04/28/2013 4:34 AMAbsolute Neutrophils 1.30 THOUS L (1.90- 7.00 THOUS) Absolute Monocytes 0.05 THOUS L (0.30-1.00 THOUS) Absolute Lymphocytes 0.96 THOUS (0.80-3.30 THOUS) Absolute Eosinophils 0.29 THOUS (0.00-0.50 THOUS) WBC 2.6 K/uL L (4.8-10.8 K/uL) Bands 2 % (0-8 %) Basophils 1 % (0-2 %) Absolute Basophils 0.03 THOUS (0.00-0.20 THOUS) Eosinophils 11 % H (0-4 %) Lymphocytes 37 % (20-46 %) Monocytes 2 % L (4-11 %) Nucleated RBC Automated 0.0 /100 WBC (0 /100 WBC) MCHC 33.9 g/dL (32.0-36.0 g/dL) MCH 29.2 pg (27.0-32.0 pg) HGB 7.9 g/dl L (14.0-18.0 g/dl) HCT 23.3 % L (42.0-52.0 %) MCV 86.0 fL (82.0-99.0 fL) Platelet Count 4 K/uL LL (150-400 K/uL) RBC 2.71 M/uL L (4.60-6.20 M/uL) RDW 15.0 % H (11.5-14.5 %) Differential Reviewed Neutrophils 48 % L (51-75 %) Toxic Granulation Occasional A LAB--HEMATOLOGY from 04/28/2013 4:37 PMPlatelet Count 2 K/uL LL (150-400 K/uL) LAB--HEMATOLOGY from 04/29/2013 5:26 AMHCT 26.7 % L (42.0-52.0 %) HGB 9.1 g/dl L (14.0-18.0 g/dl) MCH 28.7 pg (27.0-32.0 pg) MCHC 34.1 g/dL (32.0-36.0 g/dL) MCV 84.2 fL (82.0-99.0 fL) Absolute Neutrophils 0.82 THOUS L (1.90-7.00 THOUS) Absolute Monocytes 0.13 THOUS L (0.30-1.00 THOUS) Platelet Count 4 K/uL LL (150-400 K/uL) Absolute Lymphocytes 0.80 THOUS (0.80-3.30 THOUS) RBC 3.17 M/uL L (4.60-6.20 M/uL) RDW 15.3 % H (11.5-14.5 %) Absolute Eosinophils 0.08 THOUS (0.00-0.50 THOUS) WBC 1.9 K/uL L (4.8-10.8 K/uL) Bands 4 % (0-8 %) Basophils 5 % H (0-2 %) Absolute Basophils 0.10 THOUS (0.00-0.20 THOUS) Dohle Bodies Occasional A Eosinophils 4 % (0-4 %) Lymphocytes 42 % (20-46 %) Monocytes 7 % (4-11 %) Nucleated RBC Automated 0.0 /100 WBC (0 /100 WBC) Differential Reviewed Neutrophils 39 % L (51-75 %) Toxic Granulation Moderate A LAB--HEMATOLOGY from 04/30/2013 5:31 AMAbsolute Basophils 0.00 THOUS (0.00-0.20 THOUS) Absolute Eosinophils 0.14 THOUS (0.00-0.50 THOUS) Absolute Lymphocytes 1.04 THOUS (0.80-3.30 THOUS) Absolute Monocytes 0.14 THOUS L (0.30-1.00 THOUS) Absolute Neutrophils 2.20 THOUS (1.90-7.00 THOUS) HCT 26.9 % L (42.0-52.0 %) HGB 9.1 g/dl L (14.0-18.0 g/dl) MCH 29.0 pg (27.0-32.0 pg) MCHC 33.8 g/dL (32.0-36.0 g/dL) MCV 85.7 fL (82.0-99.0 fL) Platelet Count 4 K/uL LL (150-400 K/uL) RBC 3.14 M/uL L (4.60-6.20 M/uL) RDW 15.4 % H (11.5-14.5 %) WBC 3.6 K/uL L (4.8-10.8 K/uL) Bands 15 % H (0-8 %) Basophils 0 % (0-2 %) Blast 1 % Dohle Bodies Occasional A Eosinophils 4 % (0-4 %) Lymphocytes 29 % (20-46 %) Monocytes 4 % (4-11 %) Myelocytes 1 % Nucleated RBC Automated 0.0 /100 WBC (0 /100 WBC) Differential Manual A Neutrophils 46 % L (51-75 %) Toxic Granulation Occasional A LAB--HEMATOLOGY from 05/01/2013 5:12 AMHCT 28.1 % L (42.0-52.0 %) HGB 9.2 g/dl L (14.0-18.0 g/dl) MCH 28.9 pg (27.0-32.0 pg) MCHC 32.7 g/dL (32.0-36.0 g/dL) MCV 88.4 fL (82.0-99.0 fL) Platelet Count 4 K/uL LL (150-400 K/uL) RBC 3.18 M/uL L (4.60-6.20 M/uL) RDW 15.7 % H (11.5-14.5 %) WBC 9.3 K/uL (4.8-10.8 K/uL) Absolute Neutrophils 6.79 THOUS (1.90-7.00 THOUS) Absolute Monocytes 0.65 THOUS (0.30-1.00 THOUS) Absolute Lymphocytes 1.77 THOUS (0.80-3.30 THOUS) Absolute Eosinophils 0.00 THOUS (0.00-0.50 THOUS) Bands 17 % H (0-8 %) Basophils 1 % (0-2 %) Absolute Basophils 0.09 THOUS (0.00-0.20 THOUS) Dohle Bodies Occasional A Eosinophils 0 % (0-4 %) Lymphocytes 19 % L (20-46 %) Monocytes 7 % (4-11 %) Nucleated RBC Automated 0.0 /100 WBC (0 /100 WBC) Differential Manual A Schistocytes Occasional A Neutrophils 56 % (51-75 %) Toxic Granulation Occasional A LAB--HEMATOLOGY from 05/02/2013 5:25 AMAbsolute Basophils 0.10 THOUS (0.00-0.20 THOUS) Absolute Eosinophils 0.10 THOUS (0.00-0.50 THOUS) Absolute Lymphocytes 1.63 THOUS (0.80-3.30 THOUS) Absolute Monocytes 0.67 THOUS (0.30-1.00 THOUS) Absolute Neutrophils 7.10 THOUS H (1.90-7.00 THOUS) HCT 27.8 % L (42.0-52.0 %) HGB 9.0 g/dl L (14.0-18.0 g/dl) MCH 29.0 pg (27.0-32.0 pg) MCHC 32.4 g/dL (32.0-36.0 g/dL) MCV 89.7 fL (82.0-99.0 fL) Platelet Count 6 K/uL LL (150-400 K/uL) RBC 3.10 M/uL L (4.60-6.20 M/uL) RDW 16.6 % H (11.5-14.5 %) WBC 9.6 K/uL (4.8-10.8 K/uL) Basophils 1 % (0-2 %) Eosinophils 1 % (0-4 %) Lymphocytes 17 % L (20-46 %) Monocytes 7 % (4-11 %) Bands 2 % (0-8 %) Nucleated RBC Automated 0.0 /100 WBC (0 /100 WBC) Differential Reviewed Neutrophils 72 % (51-75 %) LAB--HEMATOLOGY from 05/03/2013 4:37 AMAbsolute Basophils 0.00 THOUS (0.00-0.20 THOUS) Absolute Eosinophils 0.00 THOUS (0.00-0.50 THOUS) Absolute Lymphocytes 1.06 THOUS (0.80-3.30 THOUS) Absolute Monocytes 0.44 THOUS (0.30-1.00 THOUS) Absolute Neutrophils 7.30 THOUS H (1.90-7.00 THOUS) Bands 4 % (0-8 %) Basophils 0 % (0-2 %) Eosinophils 0 % (0-4 %) Lymphocytes 12 % L (20-46 %) Monocytes 5 % (4-11 %) MCHC 32.5 g/dL (32.0-36.0 g/dL) MCH 29.0 pg (27.0-32.0 pg) HGB 9.1 g/dl L (14.0-18.0 g/dl) HCT 28.0 % L (42.0-52.0 %) MCV 89.2 fL (82.0-99.0 fL) Platelet Count 7 K/uL LL (150-400 K/uL) RBC 3.14 M/uL L (4.60-6.20 M/uL) RDW 16.5 % H (11.5-14.5 %) WBC 8.8 K/uL (4.8-10.8 K/uL) Nucleated RBC Automated 0.0 /100 WBC (0 /100 WBC) Differential Manual A Neutrophils 79 % H (51-75 %) LAB--HEMATOLOGY from 05/04/2013 5:45 AMHCT 29.1 % L (42.0-52.0 %) HGB 9.3 g/dl L (14.0-18.0 g/dl) MCH 29.1 pg (27.0-32.0 pg) MCHC 32.0 g/dL (32.0-36.0 g/dL) MCV 90.9 fL (82.0-99.0 fL) Platelet Count 11 K/uL L (150-400 K/uL) RBC 3.20 M/uL L (4.60-6.20 M/uL) RDW 16.8 % H (11.5-14.5 %) WBC 8.7 K/uL (4.8-10.8 K/uL) Bands 12 % H (0-8 %) Basophils 1 % (0-2 %) Dohle Bodies Moderate A Eosinophils 0 % (0-4 %) Lymphocytes 12 % L (20-46 %) Metamyelocytes 4 % H (0-1 %) Monocytes 3 % L (4-11 %) Absolute Neutrophils 6.96 THOUS (1.90-7.00 THOUS) Absolute Monocytes 0.26 THOUS L (0.30-1.00 THOUS) Absolute Lymphocytes 1.04 THOUS (0.80-3.30 THOUS) Absolute Eosinophils 0.00 THOUS (0.00-0.50 THOUS) Absolute Basophils 0.09 THOUS (0.00-0.20 THOUS) Nucleated RBC Automated 0.5 /100 WBC (0 /100 WBC) Polychromasia Occasional A Differential Manual A Neutrophils 68 % (51-75 %) Toxic Granulation Moderate A LAB--HEMATOLOGY from 05/05/2013 4:43 AMAbsolute Basophils 0.09 THOUS (0.00-0.20 THOUS) Absolute Eosinophils 0.08 THOUS (0.00-0.50 THOUS) Absolute Lymphocytes 0.84 THOUS (0.80-3.30 THOUS) Absolute Monocytes 0.17 THOUS L (0.30-1.00 THOUS) Absolute Neutrophils 6.72 THOUS (1.90-7.00 THOUS) HCT 29.3 % L (42.0-52.0 %) HGB 9.3 g/dl L (14.0-18.0 g/dl) MCH 29.3 pg (27.0-32.0 pg) MCHC 31.7 g/dL L (32.0-36.0 g/dL) MCV 92.4 fL (82.0-99.0 fL) Platelet Count 13 K/uL L (150-400 K/uL) RBC 3.17 M/uL L (4.60-6.20 M/uL) RDW 17.1 % H (11.5-14.5 %) WBC 8.4 K/uL (4.8-10.8 K/uL) Bands 8 % (0-8 %) Basophils 1 % (0-2 %) Eosinophils 1 % (0-4 %) Lymphocytes 10 % L (20-46 %) Metamyelocytes 4 % H (0-1 %) Monocytes 2 % L (4-11 %) Myelocytes 4 % Nucleated RBC Automated 0.5 /100 WBC (0 /100 WBC) Differential Reviewed Neutrophils 72 % (51-75 %) Toxic Granulation Moderate A LAB--HEMATOLOGY from 05/06/2013 7:44 AMHCT 30.1 % L (42.0-52.0 %) HGB 9.4 g/dl L (14.0-18.0 g/dl) MCH 29.1 pg (27.0-32.0 pg) MCHC 31.2 g/dL L (32.0-36.0 g/dL) MCV 93.2 fL (82.0-99.0 fL) Platelet Count 19 K/uL L (150-400 K/uL) RBC 3.23 M/uL L (4.60-6.20 M/uL) RDW 17.4 % H (11.5-14.5 %) WBC 10.0 K/uL (4.8-10.8 K/uL) Monocytes 3 % L (4-11 %) Myelocytes 4 % Absolute Neutrophils 6.80 THOUS (1.90-7.00 THOUS) Absolute Monocytes 0.30 THOUS (0.30-1.00 THOUS) Absolute Lymphocytes 1.40 THOUS (0.80-3.30 THOUS) Absolute Eosinophils 0.10 THOUS (0.00-0.50 THOUS) Bands 7 % (0-8 %) Basophils 2 % (0-2 %) Absolute Basophils 0.20 THOUS (0.00-0.20 THOUS) Eosinophils 1 % (0-4 %) Lymphocytes 14 % L (20-46 %) Metamyelocytes 9 % H (0-1 %) Nucleated RBC Automated 0.6 /100 WBC (0 /100 WBC) Polychromasia Occasional A Differential Reviewed Neutrophils 61 % (51-75 %) Toxic Granulation Moderate A LAB--HEMATOLOGY from 05/07/2013 7:30 AMAbsolute Basophils 0.12 THOUS (0.00-0.20 THOUS) Absolute Eosinophils 0.22 THOUS (0.00-0.50 THOUS) Absolute Lymphocytes 2.18 THOUS (0.80-3.30 THOUS) Absolute Monocytes 0.44 THOUS (0.30-1.00 THOUS) Absolute Neutrophils 7.30 THOUS H (1.90-7.00 THOUS) HCT 30.5 % L (42.0-52.0 %) HGB 9.7 g/dl L (14.0-18.0 g/dl) MCH 29.1 pg (27.0-32.0 pg) MCHC 31.8 g/dL L (32.0-36.0 g/dL) MCV 91.6 fL (82.0-99.0 fL) Platelet Count 31 K/uL L (150-400 K/uL) RBC 3.33 M/uL L (4.60-6.20 M/uL) RDW 17.7 % H (11.5-14.5 %) WBC 10.9 K/uL H (4.8-10.8 K/uL) Bands 2 % (0-8 %) Basophils 1 % (0-2 %) Dohle Bodies Occasional A Eosinophils 2 % (0-4 %) Lymphocytes 20 % (20-46 %) Metamyelocytes 4 % H (0-1 %) Monocytes 4 % (4-11 %) Myelocytes 4 % Nucleated RBC Automated 0.4 /100 WBC (0 /100 WBC) Differential Reviewed Neutrophils 65 % (51-75 %) Toxic Granulation Moderate A LAB--HEMATOLOGY from 05/08/2013 4:39 AMAbsolute Basophils 0.00 THOUS (0.00-0.20 THOUS) Absolute Eosinophils 0.00 THOUS (0.00-0.50 THOUS) Absolute Lymphocytes 1.55 THOUS (0.80-3.30 THOUS) Absolute Monocytes 0.33 THOUS (0.30-1.00 THOUS) Absolute Neutrophils 8.88 THOUS H (1.90-7.00 THOUS) HCT 28.1 % L (42.0-52.0 %) HGB 9.0 g/dl L (14.0-18.0 g/dl) MCH 29.4 pg (27.0-32.0 pg) MCHC 32.0 g/dL (32.0-36.0 g/dL) MCV 91.8 fL (82.0-99.0 fL) Platelet Count 39 K/uL L (150-400 K/uL) RBC 3.06 M/uL L (4.60-6.20 M/uL) RDW 17.9 % H (11.5-14.5 %) WBC 11.1 K/uL H (4.8-10.8 K/uL) Bands 3 % (0-8 %) Basophils 0 % (0-2 %) Eosinophils 0 % (0-4 %) Lymphocytes 14 % L (20-46 %) Metamyelocytes 3 % H (0-1 %) Monocytes 3 % L (4-11 %) Nucleated RBC Automated 0.5 /100 WBC (0 /100 WBC) Polychromasia Occasional A Differential Manual A Neutrophils 77 % H (51-75 %) Toxic Granulation Moderate A LAB--HEMATOLOGY from 05/09/2013 6:19 AMAbsolute Basophils 0.00 THOUS (0.00-0.20 THOUS) Absolute Eosinophils 0.00 THOUS (0.00-0.50 THOUS) Absolute Lymphocytes 1.43 THOUS (0.80-3.30 THOUS) Absolute Monocytes 0.39 THOUS (0.30-1.00 THOUS) Absolute Neutrophils 10.40 THOUS H (1.90-7.00 THOUS) HCT 32.7 % L (42.0-52.0 %) HGB 10.3 g/dl L (14.0-18.0 g/dl) MCH 29.3 pg (27.0-32.0 pg) MCHC 31.5 g/dL L (32.0-36.0 g/dL) MCV 93.2 fL (82.0-99.0 fL) Platelet Count 51 K/uL L (150-400 K/uL) RBC 3.51 M/uL L (4.60-6.20 M/uL) RDW 18.4 % H (11.5-14.5 %) WBC 13.0 K/uL H (4.8-10.8 K/uL) Bands 4 % (0-8 %) Basophils 0 % (0-2 %) Eosinophils 0 % (0-4 %) Lymphocytes 11 % L (20-46 %) Metamyelocytes 6 % H (0-1 %) Monocytes 3 % L (4-11 %) Nucleated RBC Automated 0.9 /100 WBC (0 /100 WBC) Differential Manual A Neutrophils 76 % H (51-75 %) Toxic Granulation Numerous A LAB--HEMATOLOGY from 05/10/2013 7:20 AMHCT 32.2 % L (42.0-52.0 %) HGB 10.1 g/dl L (14.0-18.0 g/dl) MCH 29.2 pg (27.0-32.0 pg) MCHC 31.4 g/dL L (32.0-36.0 g/dL) Absolute Neutrophils 12.26 THOUS H (1.90-7.00 THOUS) MCV 93.1 fL (82.0-99.0 fL) Absolute Monocytes 0.44 THOUS (0.30-1.00 THOUS) Platelet Count 73 K/uL L (150-400 K/uL) Absolute Lymphocytes 1.02 THOUS (0.80-3.30 THOUS) RBC 3.46 M/uL L (4.60-6.20 M/uL) Absolute Eosinophils 0.00 THOUS (0.00-0.50 THOUS) RDW 18.7 % H (11.5-14.5 %) WBC 14.6 K/uL H (4.8-10.8 K/uL) Bands 2 % (0-8 %) Absolute Basophils 0.15 THOUS (0.00-0.20 THOUS) Basophils 1 % (0-2 %) Eosinophils 0 % (0-4 %) Lymphocytes 7 % L (20-46 %) Metamyelocytes 5 % H (0-1 %) Monocytes 3 % L (4-11 %) Nucleated RBC Automated 0.3 /100 WBC (0 /100 WBC) Polychromasia Occasional A Differential Manual A Neutrophils 82 % H (51-75 %) LAB--IMMUNOLOGY from 04/14/2013 9:11 AMLSP, Lymphoma See Report Performed Antibodies See Comment LAB--IMMUNOLOGY from 04/21/2013 11:34 AMAlbumin fraction 2.9 g/dL (2.6-4.5 g/dL) Albumin percentage 35.4 % L (48.7-61.8 %) Alpha 1 Fraction 0.4 g/dL (0.3-0.5 g/dL) Alpha 1 percentage 5.1 % (3.4-8.3 %) Alpha 2 Fraction 0.9 g/dL (0.6-1.2 g/dL) Alpha 2 percentage 11.0 % (8.4-17.5 %) Beta 1 percentage 3.9 % L (5.4-8.9 %) Beta 2 percentage 3.4 % L (3.8-7.7 %) Beta 1 fraction 0.3 g/dL L (0.4-0.6 g/dL) Beta 2 fraction 0.3 g/dL (0.2-0.5 g/dL) Comment - Gamma Fraction 3.4 g/dL H (0.4-1.7 g/dL) Gamma percentage 41.2 % H (8.1-23.0 %) Monoclonal 1 Fraction 1.9 g/dL LAB--IMMUNOLOGY from 04/22/2013 5:23 AMKappa/Lambda Free Light Chains 0.0545 L [place] Free Light Chains 0.1890 mg/dL L Lambda Free Light Chains 3.47 mg/dL H LAB--URINE TESTS from 04/13/2013 8:54 PMAppearance Clear Bilirubin Negative (Negative ) Blood Negative (Negative ) Color Dk Yellow Glucose Negative (Negative ) Ketones, Urine Negative (Negative ) Leukocytes Esterase Negative (Negative ) Nitrites Negative (Negative ) pH, Urine 5.0 (5.0-8.0 ) Protein Negative (Negative ) Specific [place] 1.016 (1.003-1.030 ) Collection Type: Clean Catch Urobilinogen 1.0 mg/dL (-<1.0 mg/dL) LAB--URINE TESTS from 04/15/2013 9:15 AMAppearance Clear Bilirubin Negative (Negative ) Blood Negative (Negative ) Color Dk Yellow Glucose Negative (Negative ) Ketones, Urine Negative (Negative ) Leukocytes Esterase Negative (Negative ) Nitrites Negative (Negative ) pH, Urine 6.5 (5.0-8.0 ) Protein Negative (Negative ) Specific [place] 1.028 (1.003-1.030 ) Collection Type: Clean Catch Urobilinogen 1.0 mg/dL (-<1.0 mg/dL) LAB--URINE TESTS from 04/22/2013 5:23 AMKappa/Lambda Free Light Chains 0.0545 L
--- OUTSIDE RECORDS SUMMARY | 2016-12-07 14:30 | XMS REPORT ---
Author Author [facility], [facility] Unknown Address Unknown Phone Unavailable Allergies, Adverse [...] Medication reconciliation has not been performed. Results LAB--BLOOD BANK from 04/12/2013 9:43 AMAntibody Screen (Indirect [facility]) NEG ABO and Rh O NEG LAB--BLOOD BANK from 04/12/2013 11:27 AMPlatelet Pheresis LR Irradiated PP LR IR #1 [id number] p.Transfus 04/12/13 11:27 LAB--BLOOD BANK from 04/13/2013 5:56 PMPlatelet Pheresis LR Irradiated PP LR IR # 1 [id number] selected 04/13/13 17:56 PSAMM (Preliminary Result) LAB--BLOOD BANK from 04/13/2013 6:17 PMBlood Bank Specimen to Hold DONE ABO and Rh O NEG Antibody Screen (Indirect [facility]) NEG LAB--BLOOD BANK from 04/13/2013 7:43 PMPlatelet Pheresis LR Irradiated PP LR IR # 1 [id number] p.Transfus 04/13/13 19:43 LAB--BLOOD BANK from 04/13/2013 10:26 PMPlatelet Pheresis LR Irradiated PP LR IR #3 [id number] selected 04/13/13 22:26 PSAMM (Preliminary Result) LAB--BLOOD BANK from 04/13/2013 11:05 PMPlatelet Pheresis LR Irradiated PP LR IR #3 [id number] p.Transfus 04/13/13 23:05 LAB--BLOOD BANK from 04/14/2013 10:40 AMPlatelet Pheresis LR Irradiated PP LR IR #1 [id number] selected 04/14/13 10:40 CCHER (Preliminary Result) LAB--BLOOD BANK from 04/14/2013 2:22 PMPlatelet Pheresis LR Irradiated PP LR IR # 3 [id number] selected 04/14/13 14:22 RTHOM (Preliminary Result) LAB--BLOOD BANK from 04/14/2013 2:55 PMPlatelet Pheresis LR Irradiated PP LR IR # 3 [id number] p.Transfus 04/14/13 14:55 LAB--BLOOD BANK from 04/15/2013 8:47 AMPlatelet Pheresis LR Irradiated PP LR IR # 2 [id number] selected 04/15/13 08:47 PRASHANT (Preliminary Result) LAB--BLOOD BANK from 04/15/2013 9:25 AMPlatelet Pheresis LR Irradiated PP LR IR # 2 [id number] p.Transfus 04/15/13 09:25 LAB--BLOOD BANK from 04/18/2013 4:59 PMPlatelet Pheresis LR Irradiated PP LR IR # 2 [id number] selected 04/18/13 16:59 BBUCZ (Preliminary Result) LAB--BLOOD BANK from 04/18/2013 6:21 PMPlatelet Pheresis LR Irradiated PP LR IR # 2 [id number] p.Transfus 04/18/13 18:21 LAB--BLOOD BANK from 04/19/2013 1:39 AMPlatelet Pheresis LR Irradiated PP LR IR [id number] selected 04/19/13 01:39 CSAL (Preliminary Result) LAB--BLOOD BANK from 04/19/2013 6:37 AMPlatelet Pheresis LR Irradiated PP LR IR [id number] p.Transfus 04/19/13 06:37 LAB--BLOOD BANK from 04/20/2013 10:02 AMPlatelet Pheresis LR Irradiated PP LR IR #1 [id number] p.Transfus 04/20/13 10:02 LAB--BLOOD BANK from 04/21/2013 1:13 AMPlatelet Pheresis LR Irradiated PP LR IR [id number] selected 04/21/13 01:13 CARIDAD (Preliminary Result) LAB--BLOOD BANK from 04/21/2013 3:57 PMPlatelet Pheresis LR Irradiated PP LR IR [id number] p.Transfus 04/21/13 15:57 LAB--BLOOD BANK from 04/22/2013 9:38 AMPlatelet Pheresis LR Irradiated PP LR IR # 2 [id number] selected 04/22/13 09:38 SXCHA (Preliminary Result) LAB--BLOOD BANK from 04/22/2013 10:43 AMPlatelet Pheresis LR Irradiated PP LR IR #2 [id number] p.Transfus 04/22/13 10:43 LAB--BLOOD BANK from 04/23/2013 2:51 PMPlatelet Pheresis LR Irradiated PP LR IR # 1 [id number] selected 04/23/13 14:51 MFLET (Preliminary Result) LAB--BLOOD BANK from 04/23/2013 3:27 PMPlatelet Pheresis LR Irradiated PP LR IR # 2 [id number] selected 04/23/13 15:27 MFLET (Preliminary Result) LAB--BLOOD BANK from 04/23/2013 4:37 PMPlatelet Pheresis LR Irradiated PP LR IR # 2 [id number] p.Transfus 04/23/13 16:37 LAB--BLOOD BANK from 04/24/2013 6:06 AMABO and Rh O NEG Antibody Screen (Indirect [facility]) NEG LAB--BLOOD BANK from 04/24/2013 8:30 AMRed Blood Cells LR Irradiated ( Preliminary Result)RCLRIR -1PA#2 [id number] selected 04/24/13 08:30 RTHOM RCLR IR -1 [id number] selected 04/24/13 08:30 RTHOM RCLR IR -1 [id number] selected 04/24/13 08:30 RTHOM LAB--BLOOD BANK from 04/24/2013 9:16 AMRed Blood Cells LR Irradiated RCLRIR - 1PA#2 [id number] p.Transfus 04/24/13 09:16 LAB--BLOOD BANK from 04/24/2013 11:42 AMPlatelet Pheresis LR Irradiated PP LR IR [id number] selected 04/24/13 11:42 PRASHANT (Preliminary Result) LAB--BLOOD BANK from 04/24/2013 12:10 PMPlatelet Pheresis LR Irradiated PP LR IR [id number] p.Transfus 04/24/13 12:10 LAB--BLOOD BANK from 04/24/2013 2:05 PMRed Blood Cells LR Irradiated RCLR IR - 1 [id number] p.Transfus 04/24/13 14:05 LAB--BLOOD BANK from 04/24/2013 4:35 PMRed Blood Cells LR Irradiated RCLR IR - 1 [id number] p.Transfus 04/24/13 16:35 LAB--BLOOD BANK from 04/25/2013 10:36 AMPlatelet Pheresis LR Irradiated PP LR IR #2 [id number] selected 04/25/13 10:36 SXCHA (Preliminary Result) LAB--BLOOD BANK from 04/25/2013 11:27 AMPlatelet Pheresis LR Irradiated PP LR IR #2 [id number] p.Transfus 04/25/13 11:27 LAB--BLOOD BANK from 04/26/2013 8:07 AMPlatelet Pheresis LR Irradiated PP LR IR [id number] selected 04/26/13 08:07 SXCHA (Preliminary Result) LAB--BLOOD BANK from 04/26/2013 8:46 AMPlatelet Pheresis LR Irradiated LAB--BLOOD BANK from 04/26/2013 8:48 AMPlatelet Pheresis LR Irradiated Platelet Pheresis LR Irradiated LAB--BLOOD BANK from 04/26/2013 9:34 AMPlatelet Pheresis LR Irradiated PP LR IR # 2 [id number] p.Transfus 04/26/13 09:34 LAB--BLOOD BANK from 04/27/2013 12:58 PMPlatelet Pheresis LR Irradiated PP LR IR [id number] p.Transfus 04/27/13 12:58 LAB--BLOOD BANK from 04/28/2013 7:24 AMABO and Rh O NEG Antibody Screen (Indirect [facility]) NEG LAB--BLOOD BANK from 04/28/2013 7:50 AMPlatelet Pheresis LR Irradiated PP LR IR # 2 [id number] selected 04/28/13 07:50 RTHOM (Preliminary Result) LAB--BLOOD BANK from 04/28/2013 8:11 AMRed Blood Cells LR Irradiated ( Preliminary Result)RCLR IR -1 [id number] selected 04/28/13 08:11 RTHOM RCLR IR -1 [id number] selected 04/28/13 08:11 RTHOM LAB--BLOOD BANK from 04/28/2013 2:12 PMPlatelet Pheresis LR Irradiated PP LR IR # 2 [id number] p.Transfus 04/28/13 14:12 LAB--BLOOD BANK from 04/28/2013 4:39 PMRed Blood Cells LR Irradiated RCLR IR - 1 [id number] p.Transfus 04/28/13 16:39 LAB--BLOOD BANK from 04/28/2013 7:25 PMRed Blood Cells LR Irradiated RCLR IR - 1 [id number] p.Transfus 04/28/13 19:25 LAB--BLOOD BANK from 04/29/2013 6:37 AMPlatelet Pheresis LR Irradiated LAB--BLOOD BANK from 04/29/2013 7:15 AMPlatelet Pheresis LR Irradiated PP LR IR # 2 [id number] selected 04/29/13 07:15 PRASHANT (Preliminary Result) LAB--BLOOD BANK from 04/29/2013 9:16 AMPlatelet Pheresis LR Irradiated PP LR IR # 2 [id number] p.Transfus 04/29/13 09:16 LAB--BLOOD BANK from 04/29/2013 11:29 AMPlatelet Pheresis LR Irradiated LAB--BLOOD BANK from 04/30/2013 6:51 AMPlatelet Pheresis LR Irradiated PP LR IR [id number] selected 04/30/13 06:51 PRASHANT (Preliminary Result) LAB--BLOOD BANK from 04/30/2013 8:10 AMPlatelet Pheresis LR Irradiated PP LR IR [id number] p.Transfus 04/30/13 08:10 LAB--BLOOD BANK from 05/01/2013 7:05 AMPlatelet Pheresis LR Irradiated PP LR IR # 2 [id number] selected 05/01/13 07:05 SXCHA (Preliminary Result) LAB--BLOOD BANK from 05/01/2013 10:51 AMPlatelet Pheresis LR Irradiated PP LR IR # 2 [id number] p.Transfus 05/01/13 10:51 LAB--BLOOD BANK from 05/02/2013 6:58 AMPlatelet Pheresis LR Irradiated PP LR IR [id number] selected 05/02/13 06:58 CCHER (Preliminary Result) LAB--BLOOD BANK from 05/03/2013 12:11 PMPlatelet Pheresis LR Irradiated LAB--BLOOD BANK from 05/09/2013 9:38 AMPlatelet Pheresis LR Irradiated PP LR IR # 3 [id number] selected 05/09/13 09:38 SXCHA (Preliminary Result) LAB--BLOOD BANK from 05/09/2013 9:56 AMPlatelet Pheresis LR Irradiated PP LR IR # 3 [id number] p.Transfus 05/09/13 09:56 LAB--CHEMISTRY from 04/13/2013 6:16 PMAST (SGOT) 169 U/L H (15-41 U/L) ALT (SGPT) 103 U/L H (17-63 U/L) Bilirubin Total 1.3 mg/dL H (0.2-1.2 mg/dL) BUN 25 mg/dL H (4-20 mg/dL) Alkaline Phosphatase 747 U/L H (26-104 U/L) [...] ng/mL (2.0-20.0 ng/mL) LAB--CHEMISTRY from 04/14/2013 6:34 AMBUN 20 mg/dL (4-20 mg/dL) Anion Gap 10 (3-20 ) Calcium 8.1 mg/dL L (8.6-10.0 mg/dL) Chloride 102 mEq/L (99-109 mEq/L) CO2 24 mEq/L (22-32 mEq/L) Creatinine 0.91 mg/dL (0.64-1.27 mg/dL) eGFR >60 (>60- ) Glucose 74 mg/dL (70-100 mg/dL) Potassium 4.0 mEq/L (3.6-5.1 mEq/L) Magnesium 2.2 mg/dL (1.8-2.5 mg/dL) Sodium 136 mEq/L (136-144 mEq/L) Uric Acid 7.1 mg/dL (4.8-8.7 mg/dL) LAB--CHEMISTRY from 04/14/2013 4:08 PMHCG Quant 1 mIU/mL (0-3 mIU/mL) Alpha Protein 0.6 IU/mL (0.0-5.0 IU/mL) CEA 0.8 ng/mL (0.0-3.3 ng/mL) LAB--CHEMISTRY from 04/15/2013 3:55 AMBilirubin Total 1.0 mg/dL (0.2-1.2 mg/dL) BUN 12 mg/dL (4-20 mg/dL) AST (SGOT) 145 U/L H (15-41 [...] L (4.8-8.7 mg/dL) LAB--CHEMISTRY from 04/16/2013 3:36 AMAST (SGOT) 135 U/L H (15-41 U/L) ALT (SGPT) 75 U/L H (17-63 U/L) Bilirubin Total 1.1 mg/dL (0.2-1.2 mg/dL) BUN 10 mg/dL (4-20 mg/dL) Alkaline Phosphatase 554 U/L H (26-104 U/L) [...] L (4.8-8.7 mg/dL) LAB--CHEMISTRY from 04/17/2013 6:26 AMAST (SGOT) 113 U/L H (15-41 U/L) Bilirubin Total 1.2 mg/dL (0.2-1.2 mg/dL) ALT (SGPT) 69 U/L H (17-63 U/L) Alkaline Phosphatase 531 U/L H (26-104 U/L) Albumin 2.1 g/dL L (3.5-4.8 g/dL) Anion Gap 9 (3-20 ) BUN 10 mg/dL (4-20 mg/dL) Calcium 8.2 mg/dL L [...] L (4.8-8.7 mg/dL) LAB--CHEMISTRY from 04/18/2013 5:06 AMAST (SGOT) 110 U/L H (15-41 U/L) ALT (SGPT) 68 U/L H (17-63 U/L) Bilirubin Total 1.1 mg/dL (0.2-1.2 mg/dL) Alkaline Phosphatase 486 U/L H (26-104 U/L) Albumin 2.3 g/dL L (3.5-4.8 g/dL) Anion Gap 10 (3-20 ) BUN 10 mg/dL (4-20 mg/dL) Calcium 8.3 [...] U/mL (-<55 U/mL) LAB--CHEMISTRY from 04/19/2013 4:29 AMAST (SGOT) 94 U/L H (15-41 U/L) ALT (SGPT) 63 U/L (17-63 U/L) Bilirubin Total 1.0 mg/dL (0.2-1.2 mg/dL) Alkaline Phosphatase 406 U/L H (26-104 U/L) Albumin 2.4 g/dL L (3.5-4.8 g/dL) Anion Gap 10 (3-20 ) BUN 12 mg/dL (4-20 mg/dL) Calcium 8.8 [...] ng/mL (0.0-3.5 ng/mL) LAB--CHEMISTRY from 04/20/2013 6:44 AMAST (SGOT) 86 U/L H (15-41 U/L) ALT (SGPT) 60 U/L (17-63 U/L) Bilirubin Total 1.0 mg/dL (0.2-1.2 mg/dL) Alkaline Phosphatase 394 U/L H (26-104 U/L) Albumin 2.2 g/dL L (3.5-4.8 g/dL) Anion Gap 9 (3-20 ) BUN 11 mg/dL (4-20 mg/dL) Calcium 8.6 mg/dL (8.6-10.0 mg/dL) Chloride 93 [...] H (98-192 U/L) LAB--CHEMISTRY from 04/21/2013 6:42 AMAST (SGOT) 88 U/L H (15-41 U/L) Bilirubin Total 0.9 mg/dL (0.2-1.2 mg/dL) ALT (SGPT) 60 U/L (17-63 U/L) Alkaline Phosphatase 400 U/L H (26-104 U/L) Albumin 2.2 g/dL L (3.5-4.8 g/dL) Anion Gap 6 (3-20 ) BUN 17 mg/dL (4-20 mg/dL) Calcium 8.7 mg/dL (8.6-10.0 mg/dL) Chloride 97 [...] L (4.8-8.7 mg/dL) LAB--CHEMISTRY from 04/23/2013 6:04 AMAST (SGOT) 69 U/L H (15-41 U/L) ALT (SGPT) 44 U/L (17-63 U/L) Bilirubin Total 0.8 mg/dL (0.2-1.2 mg/dL) Alkaline Phosphatase 308 U/L H (26-104 U/L) Albumin 2.3 g/dL L (3.5-4.8 g/dL) Anion Gap 5 (3-20 ) BUN 31 mg/dL H (4-20 [...] L (4.8-8.7 mg/dL) LAB--CHEMISTRY from 04/25/2013 6:14 AMALT (SGPT) 43 U/L (17-63 U/L) AST (SGOT) 58 U/L H (15-41 U/L) Bilirubin Total 1.3 mg/dL H (0.2-1.2 mg/dL) Alkaline Phosphatase 252 U/L H (26-104 U/L) [...] 4:28 AMBilirubin Total 1.1 mg/dL (0.2-1.2 mg/dL) ALT (SGPT) 48 U/L (17-63 U/L) AST (SGOT) 49 U/L H (15-41 U/L) Alkaline Phosphatase 290 U/L H (26-104 [...] 6:32 AMBilirubin Total 1.2 mg/dL (0.2-1.2 mg/dL) ALT (SGPT) 46 U/L (17-63 U/L) AST (SGOT) 42 U/L H (15-41 U/L) Alkaline Phosphatase 279 U/L H (26-104 [...] g/dL (6.1-7.9 g/dL) LAB--CHEMISTRY from 04/28/2013 4:34 AMALT (SGPT) 52 U/L (17-63 U/L) AST (SGOT) 38 U/L (15-41 U/L) Bilirubin Total 1.1 mg/dL (0.2-1.2 mg/dL) Alkaline Phosphatase 246 U/L H (26-104 U/L) [...] g/dL (6.1-7.9 g/dL) LAB--CHEMISTRY from 04/29/2013 5:26 AMBilirubin Total 1.3 mg/dL H (0.2-1.2 mg/dL) ALT (SGPT) 48 U/L (17-63 U/L) AST (SGOT) 35 U/L (15-41 U/L) Alkaline Phosphatase 215 U/L H (26-104 U/L) Albumin 2.7 g/dL L (3.5-4.8 g/dL) Anion Gap 5 (3-20 ) BUN 14 mg/dL (4-20 mg/dL) Calcium 8.5 [...] g/dL (6.1-7.9 g/dL) LAB--CHEMISTRY from 04/30/2013 5:31 AMBilirubin Total 0.8 mg/dL (0.2-1.2 mg/dL) ALT (SGPT) 71 U/L H (17-63 U/L) AST (SGOT) 49 U/L H (15-41 U/L) Alkaline Phosphatase 228 U/L H (26-104 U/L) Albumin 2.7 g/dL L (3.5-4.8 g/dL) Anion Gap 5 (3-20 ) BUN 13 mg/dL (4-20 mg/dL) Calcium 8.6 [...] g/dL (6.1-7.9 g/dL) LAB--CHEMISTRY from 05/01/2013 5:12 AMBilirubin Total 0.7 mg/dL (0.2-1.2 mg/dL) ALT (SGPT) 61 U/L (17-63 U/L) AST (SGOT) 34 U/L (15-41 U/L) Alkaline Phosphatase 222 U/L H (26-104 U/L) Albumin 2.8 g/dL L (3.5-4.8 g/dL) Anion Gap 6 (3-20 ) BUN 13 mg/dL (4-20 mg/dL) Calcium 8.8 [...] 5:25 AMBilirubin Total 0.6 mg/dL (0.2-1.2 mg/dL) ALT (SGPT) 57 U/L (17-63 U/L) AST (SGOT) 32 U/L (15-41 U/L) Alkaline Phosphatase 222 U/L H (26-104 [...] g/dL (6.1-7.9 g/dL) LAB--CHEMISTRY from 05/03/2013 4:37 AMALT (SGPT) 65 U/L H (17-63 U/L) AST (SGOT) 37 U/L (15-41 U/L) Bilirubin Total 0.5 mg/dL (0.2-1.2 mg/dL) Alkaline Phosphatase 215 U/L H (26-104 U/L) [...] g/dL (6.1-7.9 g/dL) LAB--CHEMISTRY from 05/04/2013 5:45 AMALT (SGPT) 67 U/L H (17-63 U/L) AST (SGOT) 37 U/L (15-41 U/L) Bilirubin Total 0.6 mg/dL (0.2-1.2 mg/dL) Alkaline Phosphatase 194 U/L H (26-104 U/L) [...] L (6.1-7.9 g/dL) LAB--CHEMISTRY from 05/05/2013 4:43 AMAST (SGOT) 27 U/L (15-41 U/L) Bilirubin Total 0.6 mg/dL (0.2-1.2 mg/dL) Alkaline Phosphatase 183 U/L H (26-104 U/L) Albumin 2.6 g/dL L (3.5-4.8 g/dL) Anion Gap 3 (3-20 ) ALT (SGPT) 54 U/L (17-63 U/L) BUN 15 mg/dL (4-20 mg/dL) Calcium 8.7 [...] L (6.1-7.9 g/dL) LAB--CHEMISTRY from 05/06/2013 7:44 AMBilirubin Total 0.4 mg/dL (0.2-1.2 mg/dL) AST (SGOT) 30 U/L (15-41 U/L) Alkaline Phosphatase 181 U/L H (26-104 U/L) Albumin 2.6 g/dL L (3.5-4.8 g/dL) Anion Gap 9 (3-20 ) ALT (SGPT) 52 U/L (17-63 U/L) BUN 14 mg/dL (4-20 mg/dL) Calcium 8.6 [...] L (6.1-7.9 g/dL) LAB--CHEMISTRY from 05/07/2013 7:30 AMAST (SGOT) 28 U/L (15-41 U/L) Alkaline Phosphatase 163 U/L H (26-104 U/L) Bilirubin Total 0.6 mg/dL (0.2-1.2 mg/dL) Albumin 2.6 g/dL L (3.5-4.8 g/dL) Anion Gap 6 (3-20 ) ALT (SGPT) 44 U/L (17-63 U/L) BUN 13 mg/dL (4-20 mg/dL) Calcium 8.4 [...] L (6.1-7.9 g/dL) LAB--CHEMISTRY from 05/08/2013 4:38 AMALT (SGPT) 43 U/L (17-63 U/L) Alkaline Phosphatase 144 U/L H (26-104 U/L) AST (SGOT) 27 U/L (15-41 U/L) Bilirubin Total 0.5 mg/dL (0.2-1.2 mg/dL) Albumin 2.4 g/dL L (3.5-4.8 g/dL) Anion Gap 3 (3-20 ) BUN 9 mg/dL (4-20 mg/dL) Calcium 8.2 [...] L (6.1-7.9 g/dL) LAB--CHEMISTRY from 05/09/2013 6:19 AMBilirubin Total 0.6 mg/dL (0.2-1.2 mg/dL) ALT (SGPT) 55 U/L (17-63 U/L) Alkaline Phosphatase 152 U/L H (26-104 U/L) AST (SGOT) 38 U/L (15-41 U/L) Albumin 2.7 g/dL L (3.5-4.8 g/dL) Anion Gap 4 (3-20 ) BUN 9 mg/dL (4-20 mg/dL) Calcium 8.8 [...] L (6.1-7.9 g/dL) LAB--CHEMISTRY from 05/10/2013 7:20 AMALT (SGPT) 50 U/L (17-63 U/L) Alkaline Phosphatase 140 U/L H (26-104 U/L) AST (SGOT) 31 U/L (15-41 U/L) Bilirubin Total 0.5 mg/dL (0.2-1.2 mg/dL) Albumin 2.7 g/dL L (3.5-4.8 g/dL) Anion Gap 7 (3-20 ) BUN 18 mg/dL (4-20 mg/dL) Calcium 8.6 [...] (6.1-7.9 g/dL) LAB--COAG STUDIES from 04/13/2013 6:16 PMINR 1.0 (0.9-1.2 ) PTT 21.0 sec L (25.0-35.0 sec) LAB--COAG STUDIES from 04/15/2013 9:33 AMPTT 22.9 sec L (25.0-35.0 sec) INR 1.1 (0.9-1.2 ) LAB--COAG STUDIES from 05/08/2013 4:38 AMPTT 21.7 sec L (25.0-35.0 sec) INR 1.0 (0.9-1.2 ) LAB--HEMATOLOGY from 04/13/2013 6:16 PMAbsolute Basophils 0.12 [...] H (51-75 %) LAB--HEMATOLOGY from 04/13/2013 9:54 PMMCH 29.4 pg (27.0-32.0 pg) MCHC 33.1 g/dL (32.0-36.0 g/dL) HGB 9.1 g/dl L (14.0-18.0 g/dl) MCV 88.7 fL (82.0-99.0 fL) Platelet Count 8 K/uL LL (150-400 K/uL) RBC 3.10 M/uL L (4.60-6.20 M/uL) HCT 27.5 % L (42.0-52.0 %) RDW 14.4 % (11.5-14.5 %) WBC 12.4 K/uL H (4.8-10.8 K/uL) LAB--HEMATOLOGY from 04/14/2013 6:34 AMMCH 29.5 pg (27.0-32.0 pg) HGB 8.4 g/dl L (14.0-18.0 g/dl) MCHC 32.4 g/dL (32.0-36.0 g/dL) MCV 90.9 fL (82.0-99.0 fL) Platelet Count 10 K/uL L (150-400 K/uL) RBC 2.85 M/uL L (4.60-6.20 M/uL) HCT 25.9 % L (42.0-52.0 %) Absolute Neutrophils 9.94 THOUS H (1.90-7.00 THOUS) Absolute Monocytes 0.32 THOUS (0.30-1.00 THOUS) Absolute Lymphocytes 0.00 THOUS L (0.80-3.30 THOUS) Absolute Eosinophils 0.54 THOUS H (0.00-0.50 THOUS) Absolute Basophils 0.00 THOUS (0.00-0.20 THOUS) RDW 14.9 % H (11.5-14.5 %) WBC 10.8 K/uL (4.8-10.8 K/uL) Bands 2 % (0-8 %) Basophils 0 % (0-2 %) Eosinophils 5 [...] L (14.0-18.0 g/dl) LAB--HEMATOLOGY from 04/15/2013 3:55 AMHCT 26.9 % L (42.0-52.0 %) HGB 8.7 g/dl L (14.0-18.0 g/dl) MCH 29.4 pg (27.0-32.0 pg) MCHC 32.3 g/dL (32.0-36.0 g/dL) MCV 90.9 fL (82.0-99.0 fL) Platelet Count 7 K/uL LL (150-400 K/uL) RBC 2.96 M/uL L (4.60-6.20 M/uL) Absolute Neutrophils 8.28 THOUS H (1.90-7.00 THOUS) Absolute Monocytes 0.36 THOUS (0.30-1.00 THOUS) Absolute Lymphocytes 0.36 THOUS L (0.80-3.30 THOUS) Absolute Eosinophils 0.02 THOUS (0.00-0.50 THOUS) Absolute Basophils 0.02 THOUS (0.00-0.20 THOUS) RDW 15.1 % H (11.5-14.5 %) WBC [...] L (42.0-52.0 %) LAB--HEMATOLOGY from 04/15/2013 1:49 PMMCH 29.6 pg (27.0-32.0 pg) MCHC 32.7 g/dL (32.0-36.0 g/dL) MCV 90.4 fL (82.0-99.0 fL) Platelet Count 10 K/uL L (150-400 K/uL) RBC 2.91 M/uL L (4.60-6.20 M/uL) HGB 8.6 g/dl L (14.0-18.0 g/dl) HCT 26.3 % L (42.0-52.0 %) RDW 15.2 % H (11.5-14.5 %) WBC 11.4 K/uL H (4.8-10.8 K/uL) LAB--HEMATOLOGY from 04/15/2013 3:46 PMHGB 8.7 g/dl L (14.0-18.0 g/dl) HCT 26.8 % L (42.0-52.0 %) LAB--HEMATOLOGY from 04/16/2013 3:36 AMMCH 29.7 pg (27.0-32.0 pg) MCHC 32.3 g/dL (32.0-36.0 g/dL) MCV 92.1 fL (82.0-99.0 fL) Platelet Count 9 K/uL LL (150-400 K/uL) RBC 3.03 M/uL L (4.60-6.20 M/uL) HCT 27.9 % L (42.0-52.0 %) Absolute Neutrophils 11.84 THOUS H (1.90-7.00 THOUS) Absolute Monocytes 0.25 THOUS L (0.30-1.00 THOUS) Absolute Lymphocytes 0.38 THOUS L (0.80-3.30 THOUS) Absolute Eosinophils 0.13 THOUS (0.00-0.50 THOUS) HGB 9.0 g/dl L (14.0-18.0 g/dl) Absolute Basophils 0.02 THOUS (0.00-0.20 THOUS) RDW 15.7 % H (11.5-14.5 %) WBC 12.6 K/uL H (4.8-10.8 K/uL) Basophils 0 % (0-2 %) Eosinophils 1 % (0-4 %) Lymphocytes 3 % L (20-46 %) Monocytes 2 % L (4-11 %) Nucleated RBC Automated 0.2 /100 WBC (0 /100 WBC) Polychromasia Occasional A Differential Reviewed Neutrophils 94 % H (51-75 %) LAB--HEMATOLOGY from 04/16/2013 3:48 PMHCT 31.2 % L (42.0-52.0 %) HGB 10.1 g/dl L (14.0-18.0 g/dl) LAB--HEMATOLOGY from 04/17/2013 6:26 AMHCT 31.3 % L (42.0-52.0 %) HGB 10.3 g/dl L (14.0-18.0 g/dl) MCH 29.6 pg (27.0-32.0 pg) MCHC 32.9 g/dL (32.0-36.0 g/dL) MCV 89.9 fL (82.0-99.0 fL) Platelet Count 10 K/uL L (150-400 K/uL) RBC 3.48 M/uL L (4.60-6.20 M/uL) Absolute Neutrophils 10.80 THOUS H (1.90-7.00 THOUS) Absolute Monocytes 0.24 THOUS L (0.30-1.00 THOUS) Absolute Lymphocytes 0.48 THOUS L (0.80-3.30 THOUS) Absolute Eosinophils 0.36 THOUS (0.00-0.50 THOUS) Absolute Basophils 0.12 THOUS (0.00-0.20 THOUS) RDW 15.6 % H (11.5-14.5 %) WBC 12.0 K/uL H (4.8-10.8 K/uL) Bands 1 % (0-8 %) Basophils 1 % (0-2 %) Eosinophils 3 % (0-4 %) Lymphocytes 4 % L (20-46 %) Monocytes 2 % L (4-11 %) Nucleated RBC Automated 0.4 /100 WBC (0 /100 WBC) Polychromasia Occasional A Differential Reviewed Neutrophils 89 % H (51-75 %) LAB--HEMATOLOGY from 04/17/2013 4:01 PMHGB 10.1 g/dl L (14.0-18.0 g/dl) HCT 30.8 % L (42.0-52.0 %) LAB--HEMATOLOGY from 04/18/2013 5:06 AMRBC 3.44 M/uL L (4.60-6.20 M/uL) HGB 10.1 g/dl L (14.0-18.0 g/dl) MCH 29.4 pg (27.0-32.0 pg) MCHC 32.6 g/dL (32.0-36.0 g/dL) MCV 90.1 fL (82.0-99.0 fL) Platelet Count 9 K/uL LL (150-400 K/uL) HCT 31.0 % L (42.0-52.0 %) Absolute Neutrophils 12.06 THOUS H (1.90-7.00 THOUS) Absolute Monocytes 0.13 THOUS L (0.30-1.00 THOUS) Absolute Lymphocytes 1.07 THOUS (0.80-3.30 THOUS) Absolute Eosinophils 0.13 THOUS (0.00-0.50 THOUS) Absolute Basophils 0.00 THOUS (0.00-0.20 THOUS) RDW 15.8 % H (11.5-14.5 %) WBC 13.4 K/uL H (4.8-10.8 K/uL) Bands 3 % (0-8 %) Basophils 0 % (0-2 %) Eosinophils 1 % (0-4 %) Lymphocytes 8 % L (20-46 %) Monocytes 1 % L (4-11 %) Nucleated RBC Automated 0.0 /100 WBC (0 /100 WBC) Differential Manual A Neutrophils 87 % H [...] Count 8 K/uL LL (150-400 K/uL) RBC 3.33 M/uL L (4.60-6.20 M/uL) Absolute Neutrophils 9.63 THOUS H (1.90-7.00 THOUS) Absolute Monocytes 0.70 THOUS (0.30-1.00 THOUS) Absolute Lymphocytes 1.04 THOUS (0.80-3.30 THOUS) Absolute Eosinophils 0.23 THOUS (0.00-0.50 THOUS) Absolute Basophils 0.00 THOUS (0.00-0.20 THOUS) RDW 15.8 % H (11.5-14.5 %) WBC 11.7 K/uL H (4.8-10.8 K/uL) Basophils 0 % (0-2 %) Eosinophils 2 % (0-4 %) Lymphocytes 9 % L (20-46 %) Monocytes 6 % [...] L (42.0-52.0 %) LAB--HEMATOLOGY from 04/20/2013 6:44 AMHGB 9.2 g/dl L (14.0-18.0 g/dl) MCH 29.3 pg (27.0-32.0 pg) MCHC 32.7 g/dL (32.0-36.0 g/dL) MCV 89.5 fL (82.0-99.0 fL) Platelet Count 6 K/uL LL (150-400 K/uL) RBC 3.14 M/uL L (4.60-6.20 M/uL) HCT 28.1 % L (42.0-52.0 %) Absolute Neutrophils 8.99 THOUS H (1.90-7.00 THOUS) Absolute Monocytes 0.66 THOUS (0.30-1.00 THOUS) Absolute Lymphocytes 0.76 THOUS L (0.80-3.30 THOUS) Absolute Eosinophils 0.13 THOUS (0.00-0.50 THOUS) Absolute Basophils 0.02 THOUS (0.00-0.20 THOUS) RDW 15.6 % H (11.5-14.5 %) WBC 10.6 K/uL (4.8-10.8 K/uL) Basophils 0 % (0-2 %) Eosinophils 1 % (0-4 %) Immature Granulocytes 0.7 % (0.0-1.0 %) Lymphocytes 7 % L (20-46 %) Monocytes 6 % (4-11 %) Nucleated RBC Automated 0.0 /100 WBC (0 /100 WBC) Differential Scanned Slide Neutrophils 85 % H (51-75 %) LAB--HEMATOLOGY from 04/20/2013 9:54 AMSchistocyte Count 0.0 % (-1.0-0.0 %) LAB--HEMATOLOGY from 04/20/2013 4:09 PMHCT 30.4 % L (42.0-52.0 %) HGB 9.7 g/dl L (14.0-18.0 g/dl) LAB--HEMATOLOGY from 04/21/2013 6:42 AMHGB - g/dl (14.0-18.0 g/dl) MCH - pg (27.0-32.0 pg) MCHC - g/dL (32.0-36.0 g/dL) MCV - fL (82.0-99.0 fL) Platelet Count - K/uL (150-400 K/uL) RBC - M/uL (4.60-6.20 M/uL) HCT - % (42.0-52.0 %) RDW - % (11.5-14.5 %) WBC - K/uL (4.8-10.8 K/uL) LAB--HEMATOLOGY from 04/21/2013 9:54 AMMCH 29.3 pg (27.0-32.0 pg) MCHC 32.7 g/dL (32.0-36.0 g/dL) MCV 89.4 fL (82.0-99.0 fL) Platelet Count 6 K/uL LL (150-400 K/uL) RBC 3.11 M/uL L (4.60-6.20 M/uL) Absolute Neutrophils 9.08 THOUS H (1.90-7.00 THOUS) Absolute Monocytes 0.22 THOUS L (0.30-1.00 THOUS) Absolute Lymphocytes 0.56 THOUS L (0.80-3.30 THOUS) Absolute Eosinophils 0.07 THOUS (0.00-0.50 THOUS) Absolute Basophils 0.03 THOUS (0.00-0.20 THOUS) HGB 9.1 g/dl L (14.0-18.0 g/dl) HCT 27.8 % L (42.0-52.0 %) RDW 15.4 % H (11.5-14.5 %) WBC 10.0 K/uL (4.8-10.8 K/uL) Basophils 0 % (0-2 %) Eosinophils 1 % (0-4 %) Immature Granulocytes 0.9 % (0.0-1.0 %) Lymphocytes 6 % L (20-46 %) Monocytes 2 % L (4-11 %) Nucleated RBC Automated 0.0 /100 WBC (0 /100 WBC) Polychromasia Occasional A Neutrophils 90 % H (51-75 %) LAB--HEMATOLOGY from 04/21/2013 4:41 PMHGB 9.4 g/dl L (14.0-18.0 g/dl) HCT 29.2 % L (42.0-52.0 %) LAB--HEMATOLOGY from 04/22/2013 5:23 AMHGB 8.2 g/dl L (14.0-18.0 g/dl) MCH 29.0 pg (27.0-32.0 pg) MCHC 32.4 g/dL (32.0-36.0 g/dL) MCV 89.4 fL (82.0-99.0 fL) Platelet Count 2 K/uL LL (150-400 K/uL) RBC 2.83 M/uL L (4.60-6.20 M/uL) HCT 25.3 % L (42.0-52.0 %) Absolute Neutrophils 7.74 THOUS H (1.90-7.00 THOUS) Absolute Monocytes 0.08 THOUS L (0.30-1.00 THOUS) Absolute Lymphocytes 0.28 THOUS L (0.80-3.30 THOUS) Absolute Eosinophils 0.01 THOUS (0.00-0.50 THOUS) Absolute Basophils 0.00 THOUS (0.00-0.20 THOUS) RDW 15.4 % H (11.5-14.5 %) WBC 8.1 K/uL (4.8-10.8 K/uL) Basophils 0 % (0-2 %) Eosinophils 0 % (0-4 %) Immature Granulocytes 0.4 % (0.0-1.0 %) Lymphocytes 3 % L (20-46 %) Monocytes 1 % L (4-11 %) Nucleated RBC Automated 0.0 /100 WBC (0 /100 WBC) Differential Manual A Neutrophils 95 % H (51-75 %) LAB--HEMATOLOGY from 04/23/2013 6:04 AMHGB 8.1 g/dl L (14.0-18.0 g/dl) MCH 29.3 pg (27.0-32.0 pg) MCHC 33.1 g/dL (32.0-36.0 g/dL) MCV 88.8 fL (82.0-99.0 fL) Platelet Count 7 K/uL LL (150-400 K/uL) RBC 2.76 M/uL L (4.60-6.20 M/uL) HCT 24.5 % L (42.0-52.0 %) Absolute Neutrophils 8.19 THOUS H (1.90-7.00 THOUS) Absolute Monocytes 0.00 THOUS L (0.30-1.00 THOUS) Absolute Lymphocytes 0.36 THOUS L (0.80-3.30 THOUS) Absolute Eosinophils 0.46 THOUS (0.00-0.50 THOUS) Absolute Basophils 0.18 THOUS (0.00-0.20 THOUS) RDW 15.5 % H (11.5-14.5 %) WBC 9.1 K/uL (4.8-10.8 K/uL) Basophils 2 % (0-2 %) Eosinophils 5 % H (0-4 %) Lymphocytes 4 % L (20-46 %) Monocytes 0 % L (4-11 %) Nucleated RBC Automated 0.0 /100 WBC (0 /100 WBC) Differential Reviewed Neutrophils 90 % H (51-75 %) LAB--HEMATOLOGY from 04/24/2013 6:06 AMHCT 21.2 % L (42.0-52.0 %) HGB 6.9 g/dl L (14.0-18.0 g/dl) MCH 29.1 pg (27.0-32.0 pg) MCHC 32.5 g/dL (32.0-36.0 g/dL) MCV 89.5 fL (82.0-99.0 fL) Platelet Count 6 K/uL LL (150-400 K/uL) RBC 2.37 M/uL L (4.60-6.20 M/uL) Absolute Neutrophils 28.42 THOUS H (1.90-7.00 THOUS) Absolute Monocytes 0.00 THOUS L (0.30-1.00 THOUS) Absolute Lymphocytes 0.29 THOUS L (0.80-3.30 THOUS) Absolute Eosinophils 0.59 THOUS H (0.00-0.50 THOUS) Absolute Basophils 0.03 THOUS (0.00-0.20 THOUS) RDW 15.4 % H (11.5-14.5 %) WBC 29.3 K/uL H (4.8-10.8 K/uL) Bands 2 % (0-8 %) Basophils 0 % (0-2 %) Eosinophils 2 % (0-4 %) Lymphocytes 1 % L (20-46 %) Monocytes 0 % L (4-11 %) Nucleated RBC Automated 0.0 /100 WBC (0 /100 WBC) Differential Reviewed Neutrophils 95 % H (51-75 %) LAB--HEMATOLOGY from 04/25/2013 6:14 AMHGB 9.3 g/dl L (14.0-18.0 g/dl) MCH 29.1 pg (27.0-32.0 pg) MCHC 33.8 g/dL (32.0-36.0 g/dL) MCV 85.9 fL (82.0-99.0 fL) Platelet Count 3 K/uL LL (150-400 K/uL) RBC 3.20 M/uL L (4.60-6.20 M/uL) HCT 27.5 % L (42.0-52.0 %) Absolute Neutrophils 19.35 THOUS H (1.90-7.00 THOUS) Absolute Monocytes 0.05 THOUS L (0.30-1.00 THOUS) Absolute Lymphocytes 0.58 THOUS L (0.80-3.30 THOUS) Absolute Eosinophils 0.32 THOUS (0.00-0.50 THOUS) Absolute Basophils 0.05 THOUS (0.00-0.20 THOUS) RDW 16.1 % H (11.5-14.5 %) WBC 21.9 K/uL H (4.8-10.8 K/uL) Basophils 0 % (0-2 %) Eosinophils 2 % (0-4 %) Immature Granulocytes 7.2 % H (0.0-1.0 %) Lymphocytes 3 % L (20-46 %) Monocytes 0 % L (4-11 %) Nucleated RBC Automated 0.0 /100 WBC (0 /100 WBC) Polychromasia Occasional A Differential Scanned Slide Neutrophils 88 % H (51-75 %) LAB--HEMATOLOGY from 04/26/2013 4:28 AMHCT 29.7 % L (42.0-52.0 %) HGB 10.0 g/dl L (14.0-18.0 g/dl) MCH 29.2 pg (27.0-32.0 pg) MCHC 33.7 g/dL (32.0-36.0 g/dL) MCV 86.6 fL (82.0-99.0 fL) Platelet Count 5 K/uL LL (150-400 K/uL) RBC 3.43 M/uL L (4.60-6.20 M/uL) Absolute Neutrophils 11.28 THOUS H (1.90-7.00 THOUS) Absolute Monocytes 0.00 THOUS L (0.30-1.00 THOUS) Absolute Lymphocytes 0.74 THOUS L (0.80-3.30 THOUS) Absolute Eosinophils 0.12 THOUS (0.00-0.50 THOUS) Absolute Basophils 0.25 THOUS H (0.00-0.20 THOUS) RDW 16.1 % H (11.5-14.5 %) WBC 12.4 K/uL H (4.8-10.8 K/uL) Basophils 2 % (0-2 %) Eosinophils 1 % (0-4 %) Lymphocytes 6 % L (20-46 %) Monocytes 0 % L (4-11 %) Nucleated RBC Automated 0.0 /100 WBC (0 /100 WBC) Differential Reviewed Neutrophils 91 % H (51-75 %) LAB--HEMATOLOGY from 04/26/2013 11:30 AMPlatelet Count 5 K/uL LL (150-400 K/uL) LAB--HEMATOLOGY from 04/27/2013 6:32 AMHGB 9.1 g/dl L (14.0-18.0 g/dl) MCH 29.1 pg (27.0-32.0 pg) MCHC 33.3 g/dL (32.0-36.0 g/dL) MCV 87.2 fL (82.0-99.0 fL) Platelet Count 5 K/uL LL (150-400 K/uL) RBC 3.13 M/uL L (4.60-6.20 M/uL) HCT 27.3 % L (42.0-52.0 %) Absolute Neutrophils 2.80 THOUS (1.90-7.00 THOUS) Absolute Monocytes 0.04 THOUS L (0.30-1.00 THOUS) Absolute Lymphocytes 1.16 THOUS (0.80-3.30 THOUS) Absolute Eosinophils 0.26 THOUS (0.00-0.50 THOUS) Absolute Basophils 0.04 THOUS (0.00-0.20 THOUS) RDW 15.6 % H (11.5-14.5 %) WBC 4.3 K/uL L (4.8-10.8 K/uL) Bands 2 % (0-8 %) Basophils 1 % (0-2 %) Eosinophils 6 % H (0-4 %) Lymphocytes 27 % (20-46 %) Monocytes 1 % L (4-11 %) Nucleated RBC Automated 0.0 /100 WBC (0 /100 WBC) Differential Manual A Neutrophils 63 % (51-75 %) LAB--HEMATOLOGY from 04/27/2013 3:14 PMPlatelet Count 4 K/uL LL (150-400 K/uL) LAB--HEMATOLOGY from 04/28/2013 4:34 AMHGB 7.9 g/dl L (14.0-18.0 g/dl) MCH 29.2 pg (27.0-32.0 pg) MCHC 33.9 g/dL (32.0-36.0 g/dL) MCV 86.0 fL (82.0-99.0 fL) Platelet Count 4 K/uL LL (150-400 K/uL) RBC 2.71 M/uL L (4.60-6.20 M/uL) HCT 23.3 % L (42.0-52.0 %) Absolute Neutrophils 1.30 THOUS L (1.90-7.00 THOUS) Absolute Monocytes 0.05 THOUS L (0.30-1.00 THOUS) Absolute Lymphocytes 0.96 THOUS (0.80-3.30 THOUS) Absolute Eosinophils 0.29 THOUS (0.00-0.50 THOUS) Absolute Basophils 0.03 THOUS (0.00-0.20 THOUS) RDW 15.0 % H (11.5-14.5 %) WBC 2.6 K/uL L (4.8-10.8 K/uL) Bands 2 % (0-8 %) Basophils 1 % (0-2 %) Eosinophils 11 % H (0-4 %) Lymphocytes 37 % (20-46 %) Monocytes 2 % L (4-11 %) Nucleated RBC Automated 0.0 /100 WBC (0 /100 WBC) Differential Reviewed Neutrophils 48 % L (51-75 %) Toxic Granulation Occasional A LAB--HEMATOLOGY from 04/28/2013 4:37 PMPlatelet Count 2 K/uL LL (150-400 K/uL) LAB--HEMATOLOGY from 04/29/2013 5:26 AMHCT 26.7 % L (42.0-52.0 %) HGB 9.1 g/dl L (14.0-18.0 g/dl) MCH 28.7 pg (27.0-32.0 pg) MCHC 34.1 g/dL (32.0-36.0 g/dL) MCV 84.2 fL (82.0-99.0 fL) Platelet Count 4 K/uL LL (150-400 K/uL) RBC 3.17 M/uL L (4.60-6.20 M/uL) Absolute Neutrophils 0.82 THOUS L (1.90-7.00 THOUS) Absolute Monocytes 0.13 THOUS L (0.30-1.00 THOUS) Absolute Lymphocytes 0.80 THOUS (0.80-3.30 THOUS) Absolute Eosinophils 0.08 THOUS (0.00-0.50 THOUS) Absolute Basophils 0.10 THOUS (0.00-0.20 THOUS) RDW 15.3 % H (11.5-14.5 %) WBC 1.9 K/uL L (4.8-10.8 K/uL) Bands 4 % (0-8 %) Basophils 5 % H (0-2 %) Dohle Bodies Occasional A Eosinophils 4 % (0-4 %) Lymphocytes 42 % (20-46 %) Monocytes 7 % (4-11 %) Nucleated RBC Automated 0.0 /100 WBC (0 /100 WBC) Differential Reviewed Neutrophils 39 % L (51-75 %) Toxic Granulation Moderate A LAB--HEMATOLOGY from 04/30/2013 5:31 AMAbsolute Eosinophils 0.14 THOUS (0.00-0.50 THOUS) Absolute Lymphocytes 1.04 THOUS (0.80-3.30 THOUS) Absolute Monocytes 0.14 THOUS L (0.30-1.00 THOUS) Absolute Neutrophils 2.20 THOUS (1.90-7.00 THOUS) HCT 26.9 % L (42.0-52.0 %) Absolute Basophils 0.00 THOUS (0.00-0.20 THOUS) HGB 9.1 g/dl L (14.0-18.0 g/dl) MCH [...] Granulation Occasional A LAB--HEMATOLOGY from 05/01/2013 5:12 AMHGB 9.2 g/dl L (14.0-18.0 g/dl) MCH 28.9 pg (27.0-32.0 pg) MCHC 32.7 g/dL (32.0-36.0 g/dL) MCV 88.4 fL (82.0-99.0 fL) HCT 28.1 % L (42.0-52.0 %) Platelet Count 4 K/uL LL (150-400 K/uL) Absolute Neutrophils 6.79 THOUS (1.90-7.00 THOUS) Absolute Monocytes 0.65 THOUS (0.30-1.00 THOUS) Absolute Lymphocytes 1.77 THOUS (0.80-3.30 THOUS) Absolute Eosinophils 0.00 THOUS (0.00-0.50 THOUS) Absolute Basophils 0.09 THOUS (0.00-0.20 THOUS) RBC 3.18 M/uL L (4.60-6.20 M/uL) RDW 15.7 % H (11.5-14.5 %) WBC 9.3 K/uL (4.8-10.8 K/uL) Bands 17 % H (0-8 %) Basophils 1 % (0-2 %) Dohle Bodies Occasional A Eosinophils 0 % (0-4 %) Lymphocytes 19 % L (20-46 %) Monocytes 7 % (4-11 %) Nucleated RBC Automated 0.0 /100 WBC (0 /100 WBC) Differential Manual A Schistocytes Occasional A Neutrophils 56 % (51-75 %) Toxic Granulation Occasional A LAB--HEMATOLOGY from 05/02/2013 5:25 AMHCT 27.8 % L (42.0-52.0 %) HGB 9.0 g/dl L (14.0-18.0 g/dl) MCH 29.0 pg (27.0-32.0 pg) MCHC 32.4 g/dL (32.0-36.0 g/dL) MCV 89.7 fL (82.0-99.0 fL) Platelet Count 6 K/uL LL (150-400 K/uL) Absolute Neutrophils 7.10 THOUS H (1.90-7.00 THOUS) Absolute Monocytes 0.67 THOUS (0.30-1.00 THOUS) Absolute Lymphocytes 1.63 THOUS (0.80-3.30 THOUS) Absolute Eosinophils 0.10 THOUS (0.00-0.50 THOUS) Absolute Basophils 0.10 THOUS (0.00-0.20 THOUS) RBC 3.10 M/uL L (4.60-6.20 M/uL) RDW 16.6 % H (11.5-14.5 %) WBC 9.6 K/uL (4.8-10.8 K/uL) Bands 2 % (0-8 %) Basophils 1 % (0-2 %) Eosinophils 1 % (0-4 %) Lymphocytes 17 % L (20-46 %) Monocytes 7 % (4-11 %) Nucleated RBC Automated 0.0 /100 WBC (0 /100 WBC) Differential Reviewed Neutrophils 72 % (51-75 %) LAB--HEMATOLOGY from 05/03/2013 4:37 AMHGB 9.1 g/dl L (14.0-18.0 g/dl) MCH 29.0 pg (27.0-32.0 pg) MCHC 32.5 g/dL (32.0-36.0 g/dL) MCV 89.2 fL (82.0-99.0 fL) HCT 28.0 % L (42.0-52.0 %) Platelet Count 7 K/uL LL (150-400 K/uL) Absolute Neutrophils 7.30 THOUS H (1.90-7.00 THOUS) Absolute Monocytes 0.44 THOUS (0.30-1.00 THOUS) Absolute Lymphocytes 1.06 THOUS (0.80-3.30 THOUS) Absolute Eosinophils 0.00 THOUS (0.00-0.50 THOUS) Absolute Basophils 0.00 THOUS (0.00-0.20 THOUS) RBC 3.14 M/uL L (4.60-6.20 M/uL) RDW 16.5 % H (11.5-14.5 %) WBC 8.8 K/uL (4.8-10.8 K/uL) Bands 4 % (0-8 %) Basophils 0 % (0-2 %) Eosinophils 0 % (0-4 %) Lymphocytes 12 % L (20-46 %) Monocytes 5 % (4-11 %) Nucleated RBC Automated 0.0 /100 WBC (0 /100 WBC) Differential Manual A Neutrophils 79 % H (51-75 %) LAB--HEMATOLOGY from 05/04/2013 5:45 AMHCT 29.1 % L (42.0-52.0 %) HGB 9.3 g/dl L (14.0-18.0 g/dl) MCH 29.1 pg (27.0-32.0 pg) MCHC 32.0 g/dL (32.0-36.0 g/dL) MCV 90.9 fL (82.0-99.0 fL) Platelet Count 11 K/uL L (150-400 K/uL) Absolute Neutrophils 6.96 THOUS (1.90-7.00 THOUS) Absolute Monocytes 0.26 THOUS L (0.30-1.00 THOUS) Absolute Lymphocytes 1.04 THOUS (0.80-3.30 THOUS) Absolute Eosinophils 0.00 THOUS (0.00-0.50 THOUS) Absolute Basophils 0.09 THOUS (0.00-0.20 THOUS) RBC 3.20 M/uL L (4.60-6.20 M/uL) RDW [...] Granulation Moderate A LAB--HEMATOLOGY from 05/05/2013 4:43 AMHCT 29.3 % L (42.0-52.0 %) HGB 9.3 g/dl L (14.0-18.0 g/dl) MCH 29.3 pg (27.0-32.0 pg) MCHC 31.7 g/dL L (32.0-36.0 g/dL) MCV 92.4 fL (82.0-99.0 fL) Platelet Count 13 K/uL L (150-400 K/uL) Absolute Neutrophils 6.72 THOUS (1.90-7.00 THOUS) Absolute Monocytes 0.17 THOUS L (0.30-1.00 THOUS) Absolute Lymphocytes 0.84 THOUS (0.80-3.30 THOUS) Absolute Eosinophils 0.08 THOUS (0.00-0.50 THOUS) Absolute Basophils 0.09 THOUS (0.00-0.20 THOUS) RBC 3.17 M/uL L (4.60-6.20 M/uL) [...] Platelet Count 19 K/uL L (150-400 K/uL) Absolute Neutrophils 6.80 THOUS (1.90-7.00 THOUS) Absolute Monocytes 0.30 THOUS (0.30-1.00 THOUS) Absolute Lymphocytes 1.40 THOUS (0.80-3.30 THOUS) Absolute Eosinophils 0.10 THOUS (0.00-0.50 THOUS) Absolute Basophils 0.20 THOUS (0.00-0.20 THOUS) RBC 3.23 M/uL L (4.60-6.20 M/uL) RDW 17.4 % H (11.5-14.5 %) WBC 10.0 K/uL (4.8-10.8 K/uL) Bands 7 % (0-8 %) Basophils 2 % (0-2 %) Eosinophils 1 % (0-4 %) Lymphocytes 14 % L (20-46 %) Metamyelocytes 9 % H (0-1 %) Monocytes 3 % L (4-11 %) Myelocytes 4 % Nucleated RBC Automated 0.6 /100 WBC (0 /100 WBC) Polychromasia Occasional A Differential Reviewed Neutrophils 61 % (51-75 %) Toxic Granulation Moderate A LAB--HEMATOLOGY from 05/07/2013 7:30 AMAbsolute Eosinophils 0.22 THOUS (0.00-0.50 THOUS) Absolute Lymphocytes 2.18 THOUS (0.80-3.30 THOUS) Absolute Monocytes 0.44 THOUS (0.30-1.00 THOUS) Absolute Neutrophils 7.30 THOUS H (1.90-7.00 THOUS) Absolute Basophils 0.12 THOUS (0.00-0.20 THOUS) HGB 9.7 g/dl L (14.0-18.0 g/dl) MCH 29.1 pg (27.0-32.0 pg) MCHC 31.8 g/dL L (32.0-36.0 g/dL) MCV 91.6 fL (82.0-99.0 fL) HCT 30.5 % L (42.0-52.0 %) Platelet Count 31 K/uL L (150-400 K/uL) [...] Granulation Moderate A LAB--HEMATOLOGY from 05/08/2013 4:39 AMHGB 9.0 g/dl L (14.0-18.0 g/dl) MCH 29.4 pg (27.0-32.0 pg) MCHC 32.0 g/dL (32.0-36.0 g/dL) MCV 91.8 fL (82.0-99.0 fL) HCT 28.1 % L (42.0-52.0 %) Platelet Count 39 K/uL L (150-400 K/uL) Absolute Neutrophils 8.88 THOUS H (1.90-7.00 THOUS) Absolute Monocytes 0.33 THOUS (0.30-1.00 THOUS) Absolute Lymphocytes 1.55 THOUS (0.80-3.30 THOUS) Absolute Eosinophils 0.00 THOUS (0.00-0.50 THOUS) Absolute Basophils 0.00 THOUS (0.00-0.20 THOUS) RBC 3.06 M/uL L (4.60-6.20 M/uL) RDW [...] Granulation Moderate A LAB--HEMATOLOGY from 05/09/2013 6:19 AMHGB 10.3 g/dl L (14.0-18.0 g/dl) MCH 29.3 pg (27.0-32.0 pg) MCHC 31.5 g/dL L (32.0-36.0 g/dL) MCV 93.2 fL (82.0-99.0 fL) HCT 32.7 % L (42.0-52.0 %) Platelet Count 51 K/uL L (150-400 K/uL) Absolute Neutrophils 10.40 THOUS H (1.90-7.00 THOUS) Absolute Monocytes 0.39 THOUS (0.30-1.00 THOUS) Absolute Lymphocytes 1.43 THOUS (0.80-3.30 THOUS) Absolute Eosinophils 0.00 THOUS (0.00-0.50 THOUS) Absolute Basophils 0.00 THOUS (0.00-0.20 THOUS) RBC 3.51 M/uL L (4.60-6.20 M/uL) RDW [...] Granulation Numerous A LAB--HEMATOLOGY from 05/10/2013 7:20 AMHGB 10.1 g/dl L (14.0-18.0 g/dl) MCH 29.2 pg (27.0-32.0 pg) MCHC 31.4 g/dL L (32.0-36.0 g/dL) HCT 32.2 % L (42.0-52.0 %) MCV 93.1 fL (82.0-99.0 fL) Platelet Count 73 K/uL L (150-400 K/uL) Absolute Neutrophils 12.26 THOUS H (1.90-7.00 THOUS) Absolute Monocytes 0.44 THOUS (0.30-1.00 THOUS) Absolute Lymphocytes 1.02 THOUS (0.80-3.30 THOUS) Absolute Eosinophils 0.00 THOUS (0.00-0.50 THOUS) Absolute Basophils 0.15 THOUS (0.00-0.20 THOUS) RBC 3.46 M/uL L (4.60-6.20 M/uL) RDW 18.7 % H (11.5-14.5 %) WBC 14.6 K/uL H (4.8-10.8 K/uL) Bands 2 % (0-8 %) Basophils 1 % (0-2 %) Eosinophils 0 % (0-4 %) Lymphocytes 7 % L (20-46 %) Metamyelocytes 5 % H (0-1 %) Monocytes 3 % L (4-11 %) Nucleated RBC Automated 0.3 /100 WBC (0 /100 WBC) Polychromasia Occasional A Differential Manual A Neutrophils 82 % H (51-75 %) LAB--IMMUNOLOGY from 04/14/2013 9:11 AMPerformed Antibodies See Comment LSP, Lymphoma See Report LAB--IMMUNOLOGY from 04/21/2013 11:34 AMMonoclonal 1 Fraction 1.9 g/dL Gamma percentage 41.2 % H (8.1-23.0 %) Gamma Fraction 3.4 g/dL H (0.4-1.7 g/dL) Comment - Beta 2 fraction 0.3 g/dL (0.2-0.5 g/dL) Beta 1 fraction 0.3 g/dL L (0.4-0.6 g/dL) Beta 2 percentage 3.4 % L (3.8-7.7 %) Beta 1 percentage 3.9 % L (5.4-8.9 %) Alpha 2 percentage 11.0 % (8.4-17.5 %) Alpha 2 Fraction 0.9 g/dL (0.6-1.2 g/dL) Alpha 1 percentage 5.1 % (3.4-8.3 %) Alpha 1 Fraction 0.4 g/dL (0.3-0.5 g/dL) Albumin percentage 35.4 % L (48.7-61.8 %) Albumin fraction 2.9 g/dL (2.6-4.5 g/dL) LAB--IMMUNOLOGY from 04/22/2013 5:23 AMKappa/Lambda Free Light Chains 0.0545 L [place] Free Light Chains 0.1890 mg/dL L Lambda Free Light Chains 3.47 mg/dL H LAB--IMMUNOLOGY from 05/09/2013 1:00 PMPerformed Antibodies See Comment LSP, Lymphoma See Report LAB--URINE TESTS from 04/13/2013 8:54 PMUrobilinogen 1.0 mg/dL (-<1.0 mg/dL) Collection Type: Clean Catch Specific [place] 1.016 (1.003-1.030 ) Protein Negative (Negative ) pH, Urine 5.0 (5.0-8.0 ) Nitrites Negative (Negative ) Leukocytes Esterase Negative (Negative ) Ketones, Urine Negative (Negative ) Glucose Negative (Negative ) Color Dk Yellow Blood Negative (Negative ) Bilirubin Negative (Negative ) Appearance Clear LAB--URINE TESTS from 04/15/2013 9:15 AMUrobilinogen 1.0 mg/dL (-<1.0 mg/dL) Collection Type: Clean Catch Specific [place] 1.028 (1.003-1.030 ) Protein Negative (Negative ) pH, Urine 6.5 (5.0-8.0 ) Nitrites Negative (Negative ) Leukocytes Esterase Negative (Negative ) Ketones, Urine Negative (Negative ) Glucose Negative (Negative ) Color Dk Yellow Blood Negative (Negative ) Bilirubin Negative (Negative ) Appearance Clear LAB--URINE TESTS from 04/22/2013 5:23 AMKappa/Lambda Free Light Chains 0.0545 L
--- OUTSIDE RECORDS SUMMARY | 2016-12-07 14:31 | XMS REPORT | Summary of Care ---
Author Author Sidney Valenzuela M.D. Organization Unknown Address [address], [place] [id number] Phone Unavailable Care Team Providers Care [facility] Doctoral Fellow Name Role Phone Sidney Valenzuela Unavailable Unavailable Unavailable Unavailable Functional Status Functional Status Health Issues* Name Dates Details No known functional status health issues Status: Cognitive Status Health Issues* Name Dates Details No known cognitive status health issues Status: Problems Name Dates Details Abdominal pain [...] E53.8) Status: Active Medications Name Dates Details Clobetasol Propionate 0.05 % External Cream APPLY SPARINGLY TO AFFECTED AREA(S) TWICE DAILY Quantity: 60 GM * Started 16-Jan-2014 ActiveEscitalopram Oxalate 20 MG Oral Tablet TAKE 1 TABLET DAILY. * Refills: 0 * Started ActiveGabapentin 100 MG Oral Capsule take one capsule TID for 7 days, then two TID for 7 days, then 3 capsules TID * Refills: 0 * Started ActiveCyanocobalamin 1000 MCG/ML Injection Solution 1 IM dly x 7, wkly x 4 then monthly thereafter ( started 02/19/14) * Refills: 0 * Started Active Allergies and Adverse Reactions Name Dates Details NSAIDs Status: Active Past Medical History Name Dates Details Depression (311, F32.9) Status: Active History of pneumonia (V12.61, Z87.01) Status: Resolved History of migraine headaches (V12.49, Z86.69) Status: Resolved Stomach problems (536.9, K31.9) Status: Resolved Personal history of malignant lymphoma (V10.79, Z85.9) Status: Resolved History of blood transfusion (V15.89, Z92.89) Status: Resolved Procedures Procedure Dates Details Appendectomy Small Bowel Resection Complete Colonoscopy VITAMIN B12 3606 MRI LUMBAR SPINE Immunization Name Dates Details Pneumo (Pneumovax) Administered [...] Status: Active Social History Name Dates Details Former smoker (V15.82, Z87.891) Smoking Status* Former smoker Vital Signs Date Test Result Details 10:41 BP Systolic 130 mm[Hg] Status: BP Diastolic 72 mm[Hg] Status: Results Date Description Value Details Resulted on: 08:48 ALT 1185 Comments: Fastin hours ALT 18 U/L Range: 12-78=Better 08:48 LIPID PROFILE 1184 Comments: Fastin hours CHOLESTEROL 148 mg/dL Range: <200=Better TRIGLYCERIDES 78 mg/dL Range: 30-200=Better HDL Cholesterol 28 mg/dL Range: >39=Below low threshold NON HDL CHOLESTEROL 120 Better CARDIAC RSK FACTOR 5.3 units Range: 4.4-5.0=Above high threshold LDL - CALCULATED 104 mg/dL Range: 0-130=Better 08:48 CREATINE KINASE 1300 Comments: 02/19 Fastin hours CREATINE KINASE 54 U/L Range: 39-308=Better 10:38 PSA ( PROSTATE SPECIFIC ANTIGEN) 3100 Comments: 02/19 Fastin hours PROSTATE SPECIFIC ANTIGEN 0.410 ng/mL Range: 0.000-4.000=Better 10:38 THYROID STIM. HORMONE 3602 Comments: Fastin hours THYROID STIM. HORMONE 2.269 uIU/mL Range: 0.550-4.780=Better Comments: \[id number]\No established reference ranges for infants and children < 2 years of ageNo established reference ranges for infants and children <2 years of age----- 10:38 FOLATE 3608 Comments: Fastin hours FOLATE 12.6 ng/mL Range: 5.4-20.8=Better 10:38 VITAMIN B12 3606 Comments: Fastin hours VITAMIN B12 212 pg/mL Range: 211-911=Better Plan of Care Instructions* Instructions not documented Planned Observations* Name Dates Details Planned Goals not documented Goal Planned Encounters* Appointment; Provider: Dmitry Glimore On 17-Apr-2014 09:30 * Appointment; Provider: Sidney Valenzuela On 03-Apr-2014 12:00 * Appointment; Provider: Sidney Valenzuela On 12:00 * Appointment; Provider: Sidney Valenzuela On 08:30 Instructions * No Known Instructions Encounters Appointment; Sidney Valenzuela Encounter Diagnosis: Problem [...] Diagnosis: Problem not documented On 08:00 Appointment; Sidney Valenzuela Encounter Diagnosis: Problem not [...]
[2016-12-07 14:35] VITALS: Ht 172.7 cm; Wt 57.2 kg
--- NOTE | 2016-12-07 14:40 | NUR ---
ENA ANDERSON IN
--- NOTE | 2016-12-07 14:45 | NUR ---
REPORT TO IBETH BLACKMAN
[2016-12-07] MEDS ORDERED: IBUP-1724 PO (15:05)
[2016-12-07] MEDS ORDERED: ESCI5TAB PO (15:05)
[2016-12-07] MEDS ORDERED: GUAI118L98 PO (15:05)
[2016-12-07 15:11] LABS: BASOPHILS # (AUTO) 0.1 T/MM3 (0-0.2); BASOPHILS % (AUTO) 0.5 % (0-2); EOSINOPHILS # (AUTO) 0.2 T/MM3 (0-0.5); EOSINOPHILS % (AUTO) 1.5 % (0-4); HCT - HEMATOCRIT 39.1 % (41-53); HGB - HEMOGLOBIN 13.1 GM/DL (13.5-17.5); IMMATURE GRANULOCYTE # (AUTO) 0.04 T/MM3 (0.00-0.03); IMMATURE GRANULOCYTE % (AUTO) 0.4 % (0.0-0.5); LYMPHOCYTES # (AUTO) 2.1 T/MM3 (1-4.8); LYMPHOCYTES % (AUTO) 21.7 % (23-45); MEAN CORPUSCULAR HGB 29.6 UUG (26-34); MEAN CORPUSCULAR HGB CONC(MCHC 33.5 GM/DL (31-37); MEAN CORPUSCULAR VOLUME 88.3 UM3 (80-100); MEAN PLATELET VOLUME 9.1 UM3 (9.4-12.4); MONOCYTES # (AUTO) 0.5 T/MM3 (0-0.8); NEUTROPHILS % (AUTO) 70.9 % (33-66); RED BLOOD COUNT 4.43 M/MM3 (4.50-5.90); WBC - WHITE BLOOD COUNT 9.9 T/MM3 (4.5-11.0)
--- OUTSIDE RECORDS SUMMARY | 2016-12-07 15:19 | XMS REPORT ---
Author Author [place]/[facility], [facility] - Organization Unknown Address Unknown Phone Unavailable [...] the responsibility of the patient or patient senior patient account representative to confirm the list of medications [...] LR Irradiated PP LR IR # 1 [id number] selected 04/13/13 17:56 PSAMM (Preliminary Result) LAB--BLOOD BANK from 04/13/2013 6:17 PMBlood Bank Specimen to Hold DONE Antibody Screen (Indirect [place]) NEG ABO and Rh O NEG LAB--BLOOD BANK from 04/13/2013 7:43 PMPlatelet Pheresis LR Irradiated PP LR IR # 1 [id number] p.Transfus 04/13/13 19:43 LAB--BLOOD BANK from 04/13/2013 10:26 PMPlatelet Pheresis LR Irradiated PP LR IR #3 [id number] selected 04/13/13 22:26 PSAMM (Preliminary Result) LAB--BLOOD BANK from 04/13/2013 11:05 PMPlatelet Pheresis LR Irradiated PP LR IR #3 [id number] p.Transfus 04/13/13 23:05 LAB--BLOOD BANK from 04/14/2013 10:40 AMPlatelet Pheresis LR Irradiated PP LR IR #1 [id number] selected 04/14/13 10:40 CCHER (Preliminary Result) LAB--BLOOD BANK from 04/14/2013 2:22 PMPlatelet Pheresis LR Irradiated PP LR IR # 3 [id number] selected 04/14/13 14:22 RTHOM (Preliminary Result) LAB--BLOOD BANK from 04/14/2013 2:55 PMPlatelet Pheresis LR Irradiated PP LR IR # 3 [id number] p.Transfus 04/14/13 14:55 LAB--BLOOD BANK from 04/15/2013 8:47 AMPlatelet Pheresis LR Irradiated PP LR IR # 2 [id number] selected 04/15/13 08:47 PRASHANT (Preliminary Result) LAB--BLOOD BANK from 04/15/2013 9:25 AMPlatelet Pheresis LR Irradiated PP LR IR # 2 [id number] p.Transfus 04/15/13 09:25 LAB--BLOOD BANK from 04/18/2013 4:59 PMPlatelet Pheresis LR Irradiated PP LR IR # 2 [id number] selected 04/18/13 16:59 BBUCZ (Preliminary Result) LAB--BLOOD BANK from 04/18/2013 6:21 PMPlatelet Pheresis LR Irradiated PP LR IR # 2 [id number] p.Transfus 04/18/13 18:21 LAB--BLOOD BANK from 04/19/2013 1:39 AMPlatelet Pheresis LR Irradiated PP LR IR [id number] selected 04/19/13 01:39 CSAL (Preliminary Result) LAB--BLOOD BANK from 04/19/2013 6:37 AMPlatelet Pheresis LR Irradiated PP LR IR [id number] p.Transfus 04/19/13 06:37 LAB--BLOOD BANK from 04/20/2013 10:02 AMPlatelet Pheresis LR Irradiated PP LR IR #1 [id number] p.Transfus 04/20/13 10:02 LAB--BLOOD BANK from 04/21/2013 1:13 AMPlatelet Pheresis LR Irradiated PP LR IR [id number] selected 04/21/13 01:13 CARIDAD (Preliminary Result) LAB--BLOOD BANK from 04/21/2013 3:57 PMPlatelet Pheresis LR Irradiated PP LR IR [id number] p.Transfus 04/21/13 15:57 LAB--BLOOD BANK from 04/22/2013 9:38 AMPlatelet Pheresis LR Irradiated PP LR IR # 2 [id number] selected 04/22/13 09:38 SXCDREAD (Preliminary Result) LAB--BLOOD BANK from 04/22/2013 10:43 AMPlatelet Pheresis LR Irradiated PP LR IR #2 [id number] p.Transfus 04/22/13 10:43 LAB--BLOOD BANK from 04/23/2013 2:51 PMPlatelet Pheresis LR Irradiated PP LR IR # 1 [id number] selected 04/23/13 14:51 MFLET (Preliminary Result) LAB--BLOOD BANK from 04/23/2013 3:27 PMPlatelet Pheresis LR Irradiated PP LR IR # 2 [id number] selected 04/23/13 15:27 MFLET (Preliminary Result) LAB--BLOOD BANK from 04/23/2013 4:37 PMPlatelet Pheresis LR Irradiated PP LR IR # 2 [id number] p.Transfus 04/23/13 16:37 LAB--BLOOD BANK from 04/24/2013 6:06 AMAntibody Screen (Indirect Serenity) NEG ABO and Rh O NEG LAB--BLOOD BANK from 04/24/2013 8:30 AMRed Blood Cells LR Irradiated ( Preliminary Result)RCLRIR -1PA#2 [id number] selected 04/24/13 08:30 RTHOM RCLR IR -1 [id number] selected 04/24/13 08:30 RTHOM RCLR IR -1 [id number] selected 04/24/13 08:30 RTHOM LAB--BLOOD BANK from 04/24/2013 9:16 AMRed Blood Cells LR Irradiated RCLRIR - 1PA#2 [id number] p.Transfus 04/24/13 09:16 LAB--BLOOD BANK from 04/24/2013 11:42 AMPlatelet Pheresis LR Irradiated PP LR IR [id number] selected 04/24/13 11:42 PRASHANT (Preliminary Result) LAB--BLOOD BANK from 04/24/2013 12:10 PMPlatelet Pheresis LR Irradiated PP LR IR [id number] p.Transfus 04/24/13 12:10 LAB--BLOOD BANK from 04/24/2013 2:05 PMRed Blood Cells LR Irradiated RCLR IR - 1 [id number] p.Transfus 04/24/13 14:05 LAB--BLOOD BANK from 04/24/2013 4:35 PMRed Blood Cells LR Irradiated RCLR IR - 1 [id number] p.Transfus 04/24/13 16:35 LAB--BLOOD BANK from 04/25/2013 10:36 AMPlatelet Pheresis LR Irradiated PP LR IR #2 [id number] selected 04/25/13 10:36 SXCHA (Preliminary Result) LAB--BLOOD BANK from 04/25/2013 11:27 AMPlatelet Pheresis LR Irradiated PP LR IR #2 [id number] p.Transfus 04/25/13 11:27 LAB--BLOOD BANK from 04/26/2013 8:07 AMPlatelet Pheresis LR Irradiated PP LR IR [id number] selected 04/26/13 08:07 SXCHA (Preliminary Result) LAB--BLOOD BANK from 04/26/2013 8:46 AMPlatelet Pheresis LR Irradiated LAB--BLOOD BANK from 04/26/2013 8:48 AMPlatelet Pheresis LR Irradiated Platelet Pheresis LR Irradiated LAB--BLOOD BANK from 04/26/2013 9:34 AMPlatelet Pheresis LR Irradiated PP LR IR # 2 [id number] p.Transfus 04/26/13 09:34 LAB--BLOOD BANK from 04/27/2013 12:58 PMPlatelet Pheresis LR Irradiated PP LR IR [id number] p.Transfus 04/27/13 12:58 LAB--BLOOD BANK from 04/28/2013 7:24 AMAntibody Screen (Indirect Serenity) NEG ABO and Rh O NEG LAB--BLOOD BANK from 04/28/2013 7:50 AMPlatelet Pheresis LR Irradiated PP LR IR # 2 [id number] selected 04/28/13 07:50 RTHOM (Preliminary Result) LAB--BLOOD BANK from 04/28/2013 8:11 AMRed Blood Cells LR Irradiated ( Preliminary Result)RCLR IR -1 [id number] selected 04/28/13 08:11 RTHOM RCLR IR -1 [id number] selected 04/28/13 08:11 RTHOM LAB--BLOOD BANK from 04/28/2013 2:12 PMPlatelet Pheresis LR Irradiated PP LR IR # 2 [id number] p.Transfus 04/28/13 14:12 LAB--BLOOD BANK from 04/28/2013 4:39 PMRed Blood Cells LR Irradiated RCLR IR - 1 [id number] p.Transfus 04/28/13 16:39 LAB--BLOOD BANK from 04/28/2013 7:25 PMRed Blood Cells LR Irradiated RCLR IR - 1 [id number] p.Transfus 04/28/13 19:25 LAB--BLOOD BANK from 04/29/2013 6:37 AMPlatelet Pheresis LR Irradiated LAB--BLOOD BANK from 04/29/2013 7:15 AMPlatelet Pheresis LR Irradiated PP LR IR # 2 [id number] selected 04/29/13 07:15 PRASHANT (Preliminary Result) LAB--BLOOD BANK from 04/29/2013 9:16 AMPlatelet Pheresis LR Irradiated PP LR IR # 2 [id number] p.Transfus 04/29/13 09:16 LAB--BLOOD BANK from 04/29/2013 11:29 AMPlatelet Pheresis LR Irradiated LAB--BLOOD BANK from 04/30/2013 6:51 AMPlatelet Pheresis LR Irradiated PP LR IR [id number] selected 04/30/13 06:51 PRASHANT (Preliminary Result) LAB--BLOOD BANK from 04/30/2013 8:10 AMPlatelet Pheresis LR Irradiated PP LR IR [id number] p.Transfus 04/30/13 08:10 LAB--BLOOD BANK from 05/01/2013 7:05 AMPlatelet Pheresis LR Irradiated PP LR IR # 2 [id number] selected 05/01/13 07:05 SXCHA (Preliminary Result) LAB--BLOOD BANK from 05/01/2013 10:51 AMPlatelet Pheresis LR Irradiated PP LR IR # 2 [id number] p.Transfus 05/01/13 10:51 LAB--BLOOD BANK from 05/02/2013 6:58 AMPlatelet Pheresis LR Irradiated PP LR IR [id number] selected 05/02/13 06:58 CCHER (Preliminary Result) LAB--BLOOD BANK from 05/03/2013 12:11 PMPlatelet Pheresis LR Irradiated LAB--BLOOD BANK from 05/09/2013 9:38 AMPlatelet Pheresis LR Irradiated PP LR IR # 3 [id number] selected 05/09/13 09:38 SXCHA (Preliminary Result) LAB--BLOOD BANK from 05/09/2013 9:56 AMPlatelet Pheresis LR Irradiated PP LR IR # 3 [id number] p.Transfus 05/09/13 09:56 LAB--CHEMISTRY from 04/13/2013 6:16 [...] 5:23 AMKappa/Lambda Free Light Chains 0.0545 L [place] Free Light Chains 0.1890 mg/dL L Lambda Free Light Chains 3.47 mg/dL H LAB--URINE TESTS from 04/13/2013 8:54 PMAppearance Clear Bilirubin Negative (Negative ) Blood Negative (Negative ) Color Dk Yellow Glucose Negative (Negative ) Ketones, Urine Negative (Negative ) Leukocytes Esterase Negative (Negative ) Nitrites Negative (Negative ) pH, Urine 5.0 (5.0-8.0 ) Protein Negative (Negative ) Specific [place] 1.016 (1.003-1.030 ) Collection Type: Clean Catch Urobilinogen 1.0 mg/dL (-<1.0 mg/dL) LAB--URINE TESTS from 04/15/2013 9:15 AMAppearance Clear Bilirubin Negative (Negative ) Blood Negative (Negative ) Color Dk Yellow Glucose Negative (Negative ) Ketones, Urine Negative (Negative ) Leukocytes Esterase Negative (Negative ) Nitrites Negative (Negative ) pH, Urine 6.5 (5.0-8.0 ) Protein Negative (Negative ) Specific [place] 1.028 (1.003-1.030 ) Collection Type: Clean Catch Urobilinogen 1.0 mg/dL (-<1.0 mg/dL) LAB--URINE TESTS from 04/22/2013 5:23 AMKappa/Lambda Free Light Chains 0.0545 L
--- OUTSIDE RECORDS SUMMARY | 2016-12-07 15:19 | XMS REPORT ---
Author Author [place], [facility] - Organization Unknown Address Unknown Phone [...]
--- OUTSIDE RECORDS SUMMARY | 2016-12-07 15:19 | XMS REPORT | Continuity of Care Document ---
Author Author [facility] Organization [facility] Address Unknown Phone Unavailable Allergies Active [...] ROGERS, Ernesto Final 518.0 PULMONARY COLLAPSE 04/13/2013 Byran ROGERS, Ernesto Final 518.81 AC RESPIRATORY FAILURE 04/13/2013 Bryan ROGERS, Ernesto Final 573.9 LIVER DISORDER NOS 04/13/2013 Bryan ROGERS, Ernesto Final 578.9 GI HEMORRHAGE NOS 04/13/2013 Bryan ROGERS, Ernesto Final 786.6 CHEST SWELLING/MASS/LUMP 04/13/2013 Bryan ROGERS, Ernesto Admitting 787.01 NAUSEA W VOMITING 04/13/2013 Bryan ROGERS, [facility] Final 789.59 ASCITES NEC 04/13/2013 Bryan ROGERS, [facility] Final 790.4 ELEVAT TRANSAMINASE/LDH Procedures Code Description Performed By Performed On 41.31 BONE MARROW BIOPSY Brayan Aguilera DO 04/14/2013 50.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 Visit Date/Time Discharge Status Pt. Type Provider Facility Loc./Unit Complaint [id number] 04/13/2013 15:37:00 2012 12:58:00 DIS Inpatient Bryan ROGERS, [facility] on [place] F7N [id number] 04/12/2013 05:40:00 2012 09:25:00 DIS Outpatient Libertad ROGERS, [facility] on [place] [id number]
--- OUTSIDE RECORDS SUMMARY | 2016-12-07 15:19 | XMS REPORT ---
Author Author [place]/[facility], [facility] Unknown Address Unknown Phone Unavailable Allergies, Adverse [...] Pheresis LR Irradiated PP LR IR #1 [id number] p.Transfus 04/12/13 11:27 LAB--BLOOD BANK from 04/13/2013 5:56 PMPlatelet Pheresis LR Irradiated PP LR IR # 1 [id number] selected 04/13/13 17:56 PSAMM (Preliminary Result) LAB--BLOOD BANK from 04/13/2013 6:17 PMBlood Bank Specimen to Hold DONE ABO and Rh O NEG Antibody Screen (Indirect Sreenity) NEG LAB--BLOOD BANK from 04/13/2013 7:43 PMPlatelet Pheresis LR Irradiated PP LR IR # 1 [id number] p.Transfus 04/13/13 19:43 LAB--BLOOD BANK from 04/13/2013 10:26 PMPlatelet Pheresis LR Irradiated PP LR IR #3 [id number] selected 04/13/13 22:26 PSAMM (Preliminary Result) LAB--BLOOD BANK from 04/13/2013 11:05 PMPlatelet Pheresis LR Irradiated PP LR IR #3 [id number] p.Transfus 04/13/13 23:05 LAB--BLOOD BANK from 04/14/2013 10:40 AMPlatelet Pheresis LR Irradiated PP LR IR #1 [id number] selected 04/14/13 10:40 CCHER (Preliminary Result) LAB--BLOOD BANK from 04/14/2013 2:22 PMPlatelet Pheresis LR Irradiated PP LR IR # 3 [id number] selected 04/14/13 14:22 RTHOM (Preliminary Result) LAB--BLOOD BANK from 04/14/2013 2:55 PMPlatelet Pheresis LR Irradiated PP LR IR # 3 [id number] p.Transfus 04/14/13 14:55 LAB--BLOOD BANK from 04/15/2013 8:47 AMPlatelet Pheresis LR Irradiated PP LR IR # 2 [id number] selected 04/15/13 08:47 PRASHANT (Preliminary Result) LAB--BLOOD BANK from 04/15/2013 9:25 AMPlatelet Pheresis LR Irradiated PP LR IR # 2 [id number] p.Transfus 04/15/13 09:25 LAB--BLOOD BANK from 04/18/2013 4:59 PMPlatelet Pheresis LR Irradiated PP LR IR # 2 [id number] selected 04/18/13 16:59 BBUCZ (Preliminary Result) LAB--BLOOD BANK from 04/18/2013 6:21 PMPlatelet Pheresis LR Irradiated PP LR IR # 2 [id number] p.Transfus 04/18/13 18:21 LAB--BLOOD BANK from 04/19/2013 1:39 AMPlatelet Pheresis LR Irradiated PP LR IR [id number] selected 04/19/13 01:39 CSAL (Preliminary Result) LAB--BLOOD BANK from 04/19/2013 6:37 AMPlatelet Pheresis LR Irradiated PP LR IR [id number] p.Transfus 04/19/13 06:37 LAB--BLOOD BANK from 04/20/2013 10:02 AMPlatelet Pheresis LR Irradiated PP LR IR #1 [id number] p.Transfus 04/20/13 10:02 LAB--BLOOD BANK from 04/21/2013 1:13 AMPlatelet Pheresis LR Irradiated PP LR IR [id number] selected 04/21/13 01:13 CARIDAD (Preliminary Result) LAB--BLOOD BANK from 04/21/2013 3:57 PMPlatelet Pheresis LR Irradiated PP LR IR [id number] p.Transfus 04/21/13 15:57 LAB--BLOOD BANK from 04/22/2013 9:38 AMPlatelet Pheresis LR Irradiated PP LR IR # 2 [id number] selected 04/22/13 09:38 SXCHA (Preliminary Result) LAB--BLOOD BANK from 04/22/2013 10:43 AMPlatelet Pheresis LR Irradiated PP LR IR #2 [id number] p.Transfus 04/22/13 10:43 LAB--BLOOD BANK from 04/23/2013 2:51 PMPlatelet Pheresis LR Irradiated PP LR IR # 1 [id number] selected 04/23/13 14:51 MFLET (Preliminary Result) LAB--BLOOD BANK from 04/23/2013 3:27 PMPlatelet Pheresis LR Irradiated PP LR IR # 2 [id number] selected 04/23/13 15:27 MFLET (Preliminary Result) LAB--BLOOD BANK from 04/23/2013 4:37 PMPlatelet Pheresis LR Irradiated PP LR IR # 2 [id number] p.Transfus 04/23/13 16:37 LAB--BLOOD BANK from 04/24/2013 6:06 AMABO and Rh O NEG Antibody Screen (Indirect Serenity) NEG LAB--BLOOD BANK from 04/24/2013 8:30 AMRed Blood Cells LR Irradiated ( Preliminary Result)RCLRIR -1PA#2 [id number] selected 04/24/13 08:30 RTHOM RCLR IR -1 [id number] selected 04/24/13 08:30 RTHOM RCLR IR -1 [id number] selected 04/24/13 08:30 RTHOM LAB--BLOOD BANK from 04/24/2013 9:16 AMRed Blood Cells LR Irradiated RCLRIR - 1PA#2 [id number] p.Transfus 04/24/13 09:16 LAB--BLOOD BANK from 04/24/2013 11:42 AMPlatelet Pheresis LR Irradiated PP LR IR [id number] selected 04/24/13 11:42 PRASHANT (Preliminary Result) LAB--BLOOD BANK from 04/24/2013 12:10 PMPlatelet Pheresis LR Irradiated PP LR IR [id number] p.Transfus 04/24/13 12:10 LAB--BLOOD BANK from 04/24/2013 2:05 PMRed Blood Cells LR Irradiated RCLR IR - 1 [id number] p.Transfus 04/24/13 14:05 LAB--BLOOD BANK from 04/24/2013 4:35 PMRed Blood Cells LR Irradiated RCLR IR - 1 [id number] p.Transfus 04/24/13 16:35 LAB--BLOOD BANK from 04/25/2013 10:36 AMPlatelet Pheresis LR Irradiated PP LR IR #2 [id number] selected 04/25/13 10:36 SXCHA (Preliminary Result) LAB--BLOOD BANK from 04/25/2013 11:27 AMPlatelet Pheresis LR Irradiated PP LR IR #2 [id number] p.Transfus 04/25/13 11:27 LAB--BLOOD BANK from 04/26/2013 8:07 AMPlatelet Pheresis LR Irradiated PP LR IR [id number] selected 04/26/13 08:07 SXCHA (Preliminary Result) LAB--BLOOD BANK from 04/26/2013 8:46 AMPlatelet Pheresis LR Irradiated LAB--BLOOD BANK from 04/26/2013 8:48 AMPlatelet Pheresis LR Irradiated Platelet Pheresis LR Irradiated LAB--BLOOD BANK from 04/26/2013 9:34 AMPlatelet Pheresis LR Irradiated PP LR IR # 2 [id number] p.Transfus 04/26/13 09:34 LAB--BLOOD BANK from 04/27/2013 12:58 PMPlatelet Pheresis LR Irradiated PP LR IR [id number] p.Transfus 04/27/13 12:58 LAB--BLOOD BANK from 04/28/2013 7:24 AMABO and Rh O NEG Antibody Screen (Indirect Serenity) NEG LAB--BLOOD BANK from 04/28/2013 7:50 AMPlatelet Pheresis LR Irradiated PP LR IR # 2 [id number] selected 04/28/13 07:50 RTHOM (Preliminary Result) LAB--BLOOD BANK from 04/28/2013 8:11 AMRed Blood Cells LR Irradiated ( Preliminary Result)RCLR IR -1 [id number] selected 04/28/13 08:11 RTHOM RCLR IR -1 [id number] selected 04/28/13 08:11 RTHOM LAB--BLOOD BANK from 04/28/2013 2:12 PMPlatelet Pheresis LR Irradiated PP LR IR # 2 [id number] p.Transfus 04/28/13 14:12 LAB--BLOOD BANK from 04/28/2013 4:39 PMRed Blood Cells LR Irradiated RCLR IR - 1 [id number] p.Transfus 04/28/13 16:39 LAB--BLOOD BANK from 04/28/2013 7:25 PMRed Blood Cells LR Irradiated RCLR IR - 1 [id number] p.Transfus 04/28/13 19:25 LAB--BLOOD BANK from 04/29/2013 6:37 AMPlatelet Pheresis LR Irradiated LAB--BLOOD BANK from 04/29/2013 7:15 AMPlatelet Pheresis LR Irradiated PP LR IR # 2 [id number] selected 04/29/13 07:15 PRASHANT (Preliminary Result) LAB--BLOOD BANK from 04/29/2013 9:16 AMPlatelet Pheresis LR Irradiated PP LR IR # 2 [id number] p.Transfus 04/29/13 09:16 LAB--BLOOD BANK from 04/29/2013 11:29 AMPlatelet Pheresis LR Irradiated LAB--BLOOD BANK from 04/30/2013 6:51 AMPlatelet Pheresis LR Irradiated PP LR IR [id number] selected 04/30/13 06:51 PRASHANT (Preliminary Result) LAB--BLOOD BANK from 04/30/2013 8:10 AMPlatelet Pheresis LR Irradiated PP LR IR [id number] p.Transfus 04/30/13 08:10 LAB--BLOOD BANK from 05/01/2013 7:05 AMPlatelet Pheresis LR Irradiated PP LR IR # 2 [id number] selected 05/01/13 07:05 SXCHA (Preliminary Result) LAB--BLOOD BANK from 05/01/2013 10:51 AMPlatelet Pheresis LR Irradiated PP LR IR # 2 [id number] p.Transfus 05/01/13 10:51 LAB--BLOOD BANK from 05/02/2013 6:58 AMPlatelet Pheresis LR Irradiated PP LR IR [id number] selected 05/02/13 06:58 CCHER (Preliminary Result) LAB--BLOOD BANK from 05/03/2013 12:11 PMPlatelet Pheresis LR Irradiated LAB--BLOOD BANK from 05/09/2013 9:38 AMPlatelet Pheresis LR Irradiated PP LR IR # 3 [id number] selected 05/09/13 09:38 SXCHA (Preliminary Result) LAB--BLOOD BANK from 05/09/2013 9:56 AMPlatelet Pheresis LR Irradiated PP LR IR # 3 [id number] p.Transfus 05/09/13 09:56 LAB--CHEMISTRY from 04/13/2013 6:16 [...] 5:23 AMKappa/Lambda Free Light Chains 0.0545 L [place] Free Light Chains 0.1890 mg/dL L Lambda Free Light Chains 3.47 mg/dL H LAB--IMMUNOLOGY from 05/09/2013 1:00 PMPerformed Antibodies See Comment LSP, Lymphoma See Report LAB--URINE TESTS from 04/13/2013 8:54 PMUrobilinogen 1.0 mg/dL (-<1.0 mg/dL) Collection Type: Clean Catch Specific [place] 1.016 (1.003-1.030 ) Protein Negative (Negative ) pH, Urine 5.0 (5.0-8.0 ) Nitrites Negative (Negative ) Leukocytes Esterase Negative (Negative ) Ketones, Urine Negative (Negative ) Glucose Negative (Negative ) Color Dk Yellow Blood Negative (Negative ) Bilirubin Negative (Negative ) Appearance Clear LAB--URINE TESTS from 04/15/2013 9:15 AMUrobilinogen 1.0 mg/dL (-<1.0 mg/dL) Collection Type: Clean Catch Specific [place] 1.028 (1.003-1.030 ) Protein Negative (Negative ) pH, Urine 6.5 (5.0-8.0 ) Nitrites Negative (Negative ) Leukocytes Esterase Negative (Negative ) Ketones, Urine Negative (Negative ) Glucose Negative (Negative ) Color Dk Yellow Blood Negative (Negative ) Bilirubin Negative (Negative ) Appearance Clear LAB--URINE TESTS from 04/22/2013 5:23 AMKappa/Lambda Free Light Chains 0.0545 L
[2016-12-07 15:25] LABS: LACTATE - LACTIC ACID 1.5 MMOL/L (0.6-2.2)
[2016-12-07 15:28] LABS: ANION GAP 15 MEQ/L (5-15); BUN/CREATININE RATIO 26 RATIO (6-26); CALCIUM 9.8 MG/DL (8.4-10.2); CHLORIDE 106 MEQ/L (98-107); CO2 - CARBON DIOXIDE 23 MEQ/L (22-30); CREATININE 0.9 MG/DL (0.8-1.5); GLOMERULAR FILTRATION RATE 85; GLUCOSE 101 MG/DL (75-110); POTASSIUM 3.6 MEQ/L (3.6-5); SODIUM 144 MEQ/L (134-144)
--- NOTE | 2016-12-07 15:38 | ERPDOC ---
Departure Disposition Decision Date: Dec 07, 2016 Disposition Decision Time: 15:43 Disposition: 01 DISCHARGED HOME, SELF-CARE Impression Impression Impression: Primary Impression: Acute bronchitis Bronchitis organism: unspecified organism Qualified Codes: J20.9 - Acute bronchitis, unspecified Severity: Moderate Condition: Stable Seen By: Mid-level only Patient Instructions: Acute Bronchitis (ED) Problems/Meds/Labs Reviewed?: Yes Medications reviewed and manag: Yes Additional Instructions: Take the Zithromax and the Prednisone as prescribed. You may use the Promethazine with Codeine as needed for cough as well. Your labs and your chest xray today are normal. I do want you to follow up with your primary care provider for reevaluation if you are not improving. Follow up care ordered?: Yes Mental Status: Alert, Oriented Scripts Promethazine HCl/Codeine (Prometh-Codein 6.25-10 mg/5 ml) 5 Ml Syrup 5 ML PO Q6HPRN Y for COUGH, #120 ML 0 Refills Prov: ADRIANNA LOCKHART APRN 12/07/16 Prednisone (Prednisone) 20 Mg Tablet 20 MG PO BIDWM, #10 TAB 0 Refills Take 1 tablet, by mouth, 2 times a day with meals. Prov: ADRIANNA LOCKHART APRN 12/07/16 Azithromycin (Zithromax) 250 Mg Tablet 1 TAB PO DAILY, #6 TAB 0 Refills TAKE TWO ON DAY ONE, THEN ONE TAB DAILY UNTIL ALL TAKEN. Prov: ADRIANNA LOCKHART APRN 12/07/16 HPI - Cough/URI General Chief Complaint: Cough,Fever,Flu,URI Stated Complaint: POSS PNEUMONIA Time Seen by Provider: 14:36 Source: patient Exam Limitations: no limitations HPI - Cough/URI Initial Comments For the last week he has had a cough and shortness of breath. He did go to his PCP office today and was offered to initiate antibiotics and obtain labs and xray. The results will not be available until tomorrow however and he would like them back today. Was sent to ER for evaluation of chest xray and labs. He has had a productive cough at home and has felt like he has had a fever. Has not taken his temp at home at all. Has had some chest pain but with cough he states. Has had some wheezing, no inhalers at home. He does have a history of pneumonia and lymphoma. Has been in remission since September for the lymphoma. Occurred At: home Onset/Timing: Gradual Duration: 1 week Prior Episodes/Possible Cause: no prior episodes Associated Symptoms: chest pain/soreness (from coughing), cough, fever/chills ( subjective), nasal congestion, nasal drainage, shortness of breath, wheezing, DENIES: dizziness, earache, facial pain, headache, lightheadedness, muscle aches , sinus infection, sore throat Hx of Similar Symptoms: No Allergies: Coded Allergies: No Known Drug Allergies (Verified Allergy, Unknown, 12/07/16) Past History Past Medical History Metabolic: cancer GI: GERD Neurological: migraines Musculoskeletal: osteoarthritis Hematologic: other Surgical History General: other Family History Family History: Negative Vaccines Hx Influenza Vaccination: Yes (MARCH 2013) Hx Pneumococcal Vaccination: Yes (MARCH 2013) Social History Smoking Status: Never smoker Substance Use Type: does not use Alcohol Intake: none Review of Systems Constitutional Constitutional: chills, fatigue, fever, weakness, DENIES: dizziness ENMT Ears: DENIES: drainage, pain Sinuses: DENIES: congestion, rhinorrhea Mouth/Throat: DENIES: painful swallowing, scratchy throat, sore throat Cardiovascular Cardiac: chest pain, dyspnea on exertion, DENIES: orthopnea Rhythm/Rate: DENIES: irregular beat, palpitations Vascular: DENIES: pedal edema, unilateral swelling Pulmonary Respiratory: cough, dyspnea, pneumonia hx, sputum, DENIES: tachypnea GI Upper Abdomen: DENIES: nausea, pain, vomiting Lower Abdomen: DENIES: constipation, diarrhea, pain Integumentary Skin: DENIES: rash Neurological General: DENIES: headache, numbness, tingling, weakness Physical Exam General General Nourishment: well nourished, well developed, appears stated age, no acute distress, adult, thin General Body Habitus: well groomed Vitals and Pain First Documented Vital Signs Date Time Temp Pulse Resp B/P Pulse Ox O2 Delivery O2 Flow Rate FiO2 12/07/16 14:35 98.5 104 28 110/78 99 Room Air Weight: Kilograms: 57.200 Height (feet): 5 Height (inches): 8.00 Triage Pain Scale: RN VS reviewed by Provider: Yes Normal Exams: ENMT: No facial trauma, nasal exudates, pharyngeal erythema, or exudates are noted Neck: Full range of motion, without adenopathy, JVD, bruits or thyromegaly CV: Regular rate and rhythm, without murmur or gallop, Pulses 2+ all extremities, capillary refill, <2 seconds all ext., no pedal edema noted Abdomen: Bowel sounds positive, soft, non-tender, non-distended, no hepatosplenomegaly, masses or bruits noted Lymphatic: No lymphadenopathy, or lymphedema noted Integumentary: No rashes, hives, or bruising noted Neurologic: Patient is alert, and oriented Psychiatric: Patient exhibits, appropriate attention, emotion and affect Respiratory (brief) Respiratory: FOUND: other (Diminished in BLL) Differential Diagnoses Differential Diagnoses Considering: Acute Bronchitis, Influenza, Pneumonia, Viral Syndrome Progress Results/Orders Orders Procedure Category Date Status Time EKG EKG 12/07/16 Taken Troponin I W LAB 12/07/16 Complete Hemolysis Index Chest, Pa & Lateral RAD 12/07/16 Resulted Cbc W/Auto LAB 12/07/16 Complete Diff-Reflex Manual Bmp - Basic Metabolic LAB 12/07/16 Complete Panel Iv Lock (Ed Only) EDM 12/07/16 Transmitted 14:41 Blood Culture JUWAN 12/07/16 In Process 14:41 Lactate - Lactic Acid LAB 12/07/16 Complete Procalcitonin LAB 12/07/16 Complete 14:41 Lab Results Laboratory Tests Test 12/07/16 15:00 White Blood Count 9.9T/MM3 Red Blood Count 4.43M/MM3 Hemoglobin 13.1GM/DL Hematocrit 39.1% Mean Corpuscular Volume 88.3UM3 Mean Corpuscular Hemoglobin 29.6UUG Mean Corpuscular Hemoglobin Concent 33.5GM/DL RDW Standard Deviation 44.9FL Platelet Count 317T/MM3 Mean Platelet Volume 9.1UM3 Immature Granulocyte % (Auto) 0.4% Neutrophils (%) (Auto) 70.9% Lymphocytes (%) (Auto) 21.7% Monocytes (%) (Auto) 5.0% Eosinophils (%) (Auto) 1.5% Basophils (%) (Auto) 0.5% Absolute Immature Granulocyte (auto 0.04T/MM3 Absolute Neutrophils (auto) 7.0T/MM3 Absolute Lymphocytes (auto) 2.1T/MM3 Absolute Monocytes (auto) 0.5T/MM3 Absolute Eosinophils (auto) 0.2T/MM3 Absolute Basophils (auto) 0.1T/MM3 Turbidity < 20 Sodium Level 144MEQ/L Potassium Level 3.6MEQ/L Chloride Level 106MEQ/L Carbon Dioxide Level 23MEQ/L Anion Gap 15MEQ/L Blood Urea Nitrogen 23.0MG/DL Creatinine 0.9MG/DL Glomerular Filtration Rate Calc 85 BUN/Creatinine Ratio 26RATIO Glucose Level 101MG/DL Calculated Osmolality 281MOSM/KG Calcium Level 9.8MG/DL Icterus Index < 2 Troponin I < 0.012ng/ml Plasma Lactate 1.5MMOL/L Procalcitonin < 0.05NG/ML Chemistry Specimen Hemolysis < 15 Progress Progress WBC is 9.9 and neutrophils are 70.9. Troponin today is negative. Lactate is 1.5 and procalcitonin is negative as well. Chest xray without pneumonia. I am going to have him start on Zithromax and Prednisone today. Promethazine with Codeine for cough. Follow up with PCP if not improving at all. Xray Xray : Reason for Exam: cough Xray: CXR PA/Lat Interpretation: Abnormal (No acute cardiopulomonary process) ADRIANNA LOCKHART APRN Dec 07, 2016 15:38
--- NOTE | 2016-12-07 15:42 | DI ---
INDICATION: ITS.REASON: cough, fever PROCEDURE: CHEST 2-VIEWS UPRIGHT (PA \T\ LAT) Encounter: Initial COMPARISON: June 14, 2013 FINDINGS: Right IJ port catheter again seen prior right pleural effusion has resolved. Lungs appear clear. No pneumothorax or effusion currently. Mild hyperinflation with some flattening of the hemidiaphragms. The heart size, pulmonary vascularity and mediastinal contours are within normal limits. Impression: No acute cardiopulmonary disease. Hyperinflation. .
[2016-12-07] MEDS ORDERED: PROM5SYR PO (15:45)
[2016-12-07] MEDS ORDERED: PRED20TA PO (15:45)
[2016-12-07] MEDS ORDERED: AZIT250T PO (15:45)
[2016-12-07 15:50] VITALS: BP 105/63; PULSE 85; RESP 16; O2SAT 95
== END 2016-12-07 15:50 | disposition home or self-care (01) ==
LOC: ED 14:24
DX: J20.9 Acute bronchitis, unspecified (principal)
CPT/HCPCS: 36415; 80048; 83605; 84145; 84484; 85025; 87040; 93005